=== PATIENT | male | born 1960 | race African-American/Black ===

== ENCOUNTER 2017-10-12 21:20 | Emergency (ER) | payer SELFPAY ==
[2017-10-12] MEDS ORDERED: NA CHLORIDE 0.9% 1,000 ML ONE ×2 (21:53→22:51)
[2017-10-12] MEDS ORDERED: MORPHINE 4 MG/ML SYR ONE ×2 (21:53→22:15)
[2017-10-12] MEDS ORDERED: ONDANSETRON 4 MG/2 ML VIAL ONE (21:53)
[2017-10-12 22:01] LABS: Absolute Lymphocytes (CBC) 2.7 K/uL (0.7-4.9); Absolute Monocytes 1.4 K/uL (0.1-1.3); Absolute Neutrophil 12.2 K/uL (1.8-8.0); Basophils % 0.5 % (0-1.3); Eosinophils % 0.5 % (0-4.4); Lymphocytes % 16.4 % (15.3-44.8); MCH 28.2 pg (27.0-35.0); MCV 84.1 fL (80-100); MPV 8.6 fL (7.6-11.3); Monocytes % 8.3 % (3.3-12.3); RBC Red Blood Cell Count 5.35 M/uL (4.33-5.43)
[2017-10-12 22:10] LABS: Protime INR 1.32
[2017-10-12 22:15] LABS: Potassium 3.6 mEq/L (3.6-5.0)
--- NOTE | 2017-10-12 22:30 | ER ---
Nurse's Notes [facility] Name: Nader Trejo Jr Age: 57 yrs Sex: Male : 1960 Arrival Date: 10/12/2017 Time: 21:25 Bed 20 Private MD: Diagnosis: Multiple fractures of pelvis with unstable disruption of pelvic ring;Animal-rider injured by fall from or being thrown from horse in noncollision accident Presentation: 10/12 21:29 Presenting complaint: Patient states: I was riding a a horse and bucked off the horse, la1 reports + LOC, C/O pain in PAMELA hips, states he cannot bear weight. Transition of care: patient was not received from another setting of care. Onset of symptoms was October 12, 2017. Initial Sepsis Screen: Does the patient meet any 2 criteria? No. Patient's initial sepsis screen is negative. Does the patient have a suspected source of infection? No. Patient's initial sepsis screen is negative. Care prior to arrival: None. 21:29 Method Of Arrival: Wheelchair la1 21:29 Acuity: BING 2 la1 21:35 Mechanism of Injury: ejected from a horse. bb 21:44 Trauma event details: Injury occurred in the [facility], [place]. Injury occurred: October 12, 2017 Injury occurred at: 19:30. Trauma Activation: Alert Physician: ED Physician; Name: Giuliana; Notified At: 21:29; Arrived At: 21:29 Physician: General Surgeon; Name: ; Notified At: 21:29; Arrived At: Physician: Radiology; Name: Bri Hobbs Crystal; Notified At: 21:29; Arrived At: 21:30 Physician: Respiratory; Name: ; Notified At: 21:29; Arrived At: Physician: Lab; Name: ; Notified At: 21:29; Arrived At: Historical: - Allergies: 21:31 No Known Allergies; la1 - PMHx: 21:31 None; la1 - PSHx: 21:31 None; la1 - Immunization history:: Adult Immunizations up to date. - Social history:: Smoking status: Patient uses tobacco products, smokes one pack cigarettes per day. - Immunization history: Last tetanus immunization: unknown. Screenin:35 Abuse screen: Denies threats or abuse. Tuberculosis screening: No symptoms or risk bb factors identified. 22:05 Nutritional screening: No deficits noted. Fall Risk None identified. bb Primary Survey: 21:35 A: Airway: patent. Breathing/Chest: Respiratory pattern: regular, Respiratory effort: bb spontaneous, unlabored, Breath sounds: clear, bilaterally. Chest inspection: symmetrical rise and fall of the chest. Circulation: Heart tones present. Pulses: palpable right radial artery, right dorsalis pedis artery, left radial artery and left dorsalis pedis artery. Skin color: normal, Skin temperature: warm. Disability Alert. 22:00 Reassessment Breathing/Chest Respiratory pattern Regular Respiratory effort Spontaneous bb Unlabored Breath sounds Clear Chest inspection Symmetrical Circulation Heart tones Present Pulses Palpable Color Other normal Temperature Warm Disability Alert. Secondary Survey: 21:35 HEENT: No deficits noted. Gastrointestinal: Abdomen is distended, Bowel sounds bb hypoactive in right upper quadrant, left upper quadrant, right lower quadrant and left lower quadrant Palpation Patient reports tenderness. : No signs and/or symptoms were reported regarding the genitourinary system. Musculoskeletal: Circulation, motion, and sensation intact. Assessment: 21:35 General: Appears uncomfortable, Behavior is cooperative, anxious, Reports pain in lower bb abdomen, groin area, states he thinks he may have passed out. Pain: Complains of pain in abdomen Pain currently is 10 out of 10 on a pain scale. Neuro: Level of Consciousness is awake, alert, obeys commands, Oriented to person, place, time, situation, Speech is normal. Cardiovascular: Heart tones S1 S2 present Capillary refill < 3 seconds Patient's skin is warm and dry. Pulses are all present. Edema is absent. Respiratory: Respiratory effort is even, unlabored, Breath sounds are clear bilaterally. GI: Abdomen is distended, Bowel sounds present X 4 quads. Abd is soft X 4 quads Abdomen is tender to palpation X 4 quads. : No signs and/or symptoms were reported regarding the genitourinary system. Derm: Skin is dry, Skin is normal, Skin temperature is warm. Musculoskeletal: Circulation, motion, and sensation intact. Injury Description: bucked off of a horse. 22:20 Reassessment: pelvic sling applied pt transported to CT via stretcher accompanied by bb this RN. Reassessment:. 22:40 Reassessment: pt tolerated CT procedure well. Pt is A\T\O x 4, resp unlabored, states bb pain is better. 22:58 Reassessment: report called to Rubina Aquino RN for [facility]. bb 23:05 Reassessment: [facility] at bedside for transport to [facility] pt is A\T\O x 4, bb resp unlabored, bilateral IVs intact, patent, with fluids infusing, pelvic sling in place. Family at bedside. Vital Signs: 21:31 BP 124 / 79; Pulse 84; Resp 16; Temp 97.2; Pulse Ox 100% on R/A; Weight 91.63 kg; la1 Height 5 ft. 6 in. (167.64 cm); 22:04 BP 112 / 71; Pulse 88; Resp 18 S; Pulse Ox 96% on 2 lpm NC; bb 22:51 BP 135 / 98; Pulse 97; Resp 20; Pulse Ox 97% on 2 lpm NC; cc 23:05 BP 144 / 91; Pulse 84; Resp 18 S; Pulse Ox 97% on 2 lpm NC; Pain 6/10; bb 21:31 Body Mass Index 32.60 (91.63 kg, 167.64 cm) la1 [place] Coma Score: 21:35 Eye Response: spontaneous(4). Verbal Response: oriented(5). Motor Response: obeys bb commands(6). Total: 15. 22:00 Eye Response: spontaneous(4). Verbal Response: oriented(5). Motor Response: obeys bb commands(6). Total: 15. Trauma Score (Adult): 21:35 Eye Response: spontaneous(1); Verbal Response: oriented(1); Motor Response: obeys bb commands(2); Systolic BP: > 89 mm Hg(4); Respiratory Rate: 10 to 29 per min(4); Lizette Score: 15; Trauma Score: 12 ED Course: 21:25 Patient arrived in ED. es 21:31 Triage completed. la1 21:31 Arm band placed on left wrist. la1 21:35 Patient has correct armband on for positive identification. Bed in low position. Call bb light in reach. Side rails up X2. Adult w/ patient. C-Collar applied by Mookie ZAYAS. 21:35 Patient maintains SpO2 saturation greater than 95% on room air. bb 21:36 Mookie Newell PA is PHCP. cp 21:36 Alexandru Solomon MD is Attending Physician. cp 21:45 Thermoregulation: warm blanket given to patient. bb 21:45 Initial lab(s) drawn, by ct, sent to lab. EKG done, T\T\S collected, blood band applied bb to patient. Inserted saline lock: 18 gauge in left antecubital area, using aseptic technique. Blood collected. 21:57 Belkis Cote, RN is Primary Nurse. bb 22:02 Radiology exam delayed due to lab results not completed at this time. (BUN/Creatinine). cw1 22:04 X-ray completed. Portable x-ray completed in exam room. Patient tolerated procedure la2 well. 22:05 XRAY Chest (1 view) In Process Unspecified. EDMS 22:06 XRAY Pelvis In Process Unspecified. EDMS 22:45 Inserted saline lock: 18 gauge in right antecubital area, using aseptic technique. bb 22:51 CT Traumagram (Head C Spine CAP W Con) In Process Unspecified. EDMS 23:14 No provider procedures requiring assistance completed. Patient transferred, IV remains bb in place. Administered Medications: 21:57 Drug: NS 0.9% 1000 ml Route: IV; Rate: 1 bolus; Site: left antecubital; bb 23:19 Follow up: IV Status: Completed infusion; IV Intake: 1000ml bb 21:57 Drug: morphine 4 mg Route: IVP; Site: left antecubital; bb 23:19 Follow up: Response: No adverse reaction; Pain is decreased bb 21:58 Drug: Zofran 4 mg Route: IVP; Site: left antecubital; bb 23:19 Follow up: Response: No adverse reaction bb 22:23 Drug: morphine 4 mg Route: IVP; Site: left antecubital; bb 23:19 Follow up: Response: No adverse reaction; Pain is decreased bb Intake: 21:35 PO: 0ml; Total: 0ml. bb 23:19 IV: 1000ml; Total: 1000ml. bb Outcome: 22:29 ER care complete, transfer ordered by . cp 23:14 Transferred by helicopter to [facility], Transfer form completed. X-rays sent bb w/ patient. 23:14 Condition: unchanged 23:14 Patient's length of stay was not longer than 2 hours. 23:20 Patient left the ED. bb Signatures: Dispatcher [employer] Charla Harvey Felicia RN RN Belkis Mtz RN RN Miguelina Barnett cw1 Leigh Rios Lee, RN RN la1 Mookie Newell PA PA cp Ardoin, Leslie la2
--- NOTE | 2017-10-12 22:30 | EDPHYS ---
Physician Documentation [facility] Name: Nader Trejo Jr Age: 57 yrs Sex: Male : 1960 Arrival Date: 10/12/2017 Time: 21:25 Bed 20 Private MD: ED Physician Alexandru Solomon HPI: 10/12 21:44 This 57 yrs old Black Male presents to ER via Wheelchair with complaints of Fall Injury.cp 21:44 Details of fall: The patient fell from a height, thrown from horse. Onset: The cp symptoms/episode began/occurred today, at 19:00. Associated injuries: The patient sustained injury to the abdomen, specifically the right lower quadrant and left lower quadrant, pain, pelvis, painful injury. Historical: - Allergies: 21:31 No Known Allergies; la1 - PMHx: :31 None; la1 - PSHx: 21:31 None; la1 - Immunization history:: Adult Immunizations up to date. - Social history:: Smoking status: Patient uses tobacco products, smokes one pack cigarettes per day. - Immunization history: Last tetanus immunization: unknown. ROS: 22:00 Constitutional: Negative for body aches, chills, fever, poor PO intake. cp 22:00 Eyes: Negative for injury, pain, redness, and discharge. cp 22:00 ENT: Negative for drainage from ear(s), ear pain, sore throat, difficulty swallowing, difficulty handling secretions. 22:00 Neck: Negative for pain with movement, pain at rest, stiffness, tenderness, bony tenderness. 22:00 Cardiovascular: Negative for chest pain, edema, palpitations. 22:00 Respiratory: Negative for cough, shortness of breath, wheezing. 22:00 Abdomen/GI: Positive for abdominal pain, of the suprapubic area, Negative for nausea, vomiting, and diarrhea. 22:00 Back: Negative for pain at rest, pain with movement. 22:00 : Positive for pelvic pain, Negative for penile pain, testicular pain 22:00 Skin: Negative for cellulitis, rash. 22:00 Neuro: Positive for loss of consciousness, Negative for altered mental status, weakness. 22:00 All other systems are negative. Exam: 22:05 Constitutional: The patient appears in no acute distress, alert, awake, cp non-diaphoretic, non-toxic, well developed, well nourished. 22:05 Head/Face: Normocephalic, atraumatic. cp 22:05 Eyes: Periorbital structures: appear normal, Pupils: equal, round, and reactive to light and accomodation, Extraocular movements: intact throughout, Conjunctiva: normal, no exudate, no injection, Lids and lashes: appear normal, bilaterally. 22:05 ENT: External ear(s): are unremarkable, Ear canal(s): are normal, clear, TM's: dullness, bilaterally, Nose: is normal, Mouth: is normal, Posterior pharynx: is normal, airway is patent, no erythema, no exudate. 22:05 Neck: C-spine: C-collar placed in ED, vertebral tenderness, is not appreciated, crepitus, is not appreciated. 22:05 Chest/axilla: Inspection: normal, Palpation: is normal, no crepitus, no tenderness. 22:05 Cardiovascular: Rate: normal, Rhythm: regular. 22:05 Respiratory: the patient does not display signs of respiratory distress, Respirations: normal, no use of accessory muscles, no retractions, no splinting, no tachypnea, Breath sounds: are clear throughout, no decreased breath sounds, no stridor, no wheezing. 22:05 Abdomen/GI: Inspection: abdomen appears normal, Bowel sounds: active, all quadrants, Palpation: moderate abdominal tenderness, in the right lower quadrant and left lower quadrant, rebound tenderness, is not appreciated, voluntary guarding, is elicited in the right lower quadrant and left lower quadrant. 22:05 Back: ROM is normal. 22:05 Skin: cellulitis, is not appreciated, no rash present. 22:05 Neuro: Orientation: to person, place \T\ time. Mentation: lucid, able to follow commands, Cerebellar function: is grossly normal, Motor: moves all fours, strength is normal, Sensation: no obvious gross deficits. Vital Signs: 21:31 BP 124 / 79; Pulse 84; Resp 16; Temp 97.2; Pulse Ox 100% on R/A; Weight 91.63 kg; la1 Height 5 ft. 6 in. (167.64 cm); 22:04 BP 112 / 71; Pulse 88; Resp 18 S; Pulse Ox 96% on 2 lpm NC; bb 22:51 BP 135 / 98; Pulse 97; Resp 20; Pulse Ox 97% on 2 lpm NC; cc 23:05 BP 144 / 91; Pulse 84; Resp 18 S; Pulse Ox 97% on 2 lpm NC; Pain 6/10; bb 21:31 Body Mass Index 32.60 (91.63 kg, 167.64 cm) la1 [place] Coma Score: 21:35 Eye Response: spontaneous(4). Verbal Response: oriented(5). Motor Response: obeys bb commands(6). Total: 15. 22:00 Eye Response: spontaneous(4). Verbal Response: oriented(5). Motor Response: obeys bb commands(6). Total: 15. Trauma Score (Adult): 21:35 Eye Response: spontaneous(1); Verbal Response: oriented(1); Motor Response: obeys bb commands(2); Systolic BP: > 89 mm Hg(4); Respiratory Rate: 10 to 29 per min(4); Lizette Score: 15; Trauma Score: 12 MDM: 21:41 Patient medically screened. cp 22:15 Data reviewed: vital signs, nurses notes, lab test result(s), radiologic studies, plain cp films. 22:15 Test interpretation: by ED physician or midlevel provider: plain radiologic studies. cp Counseling: I had a detailed discussion with the patient and/or guardian regarding: the historical points, exam findings, and any diagnostic results supporting the discharge/admit diagnosis, lab results, radiology results, the need to transfer to another facility, for higher level of care. Response to treatment: the patient's symptoms have mildly improved after treatment. 10/12 20:44 Order name: Basic Metabolic Panel; Complete Time: 23:09 cp 10/12 23:09 Interpretation: Normal except: GLUC 148; GFR 86. cp 10/12 20:44 Order name: CBC with Diff; Complete Time: 22:13 cp 10/12 23:09 Interpretation: Normal except: WBC 16.5; BETHANIE% 74.3; NEUT A 12.2. cp 10/12 20:44 Order name: Creatinine for Radiology; Complete Time: 22:13 cp 10/12 20:44 Order name: Type And Screen; Complete Time: 23:09 cp 10/12 20:44 Order name: PT-INR; Complete Time: 22:13 cp 10/12 20:44 Order name: Ptt, Activated; Complete Time: 22:13 cp 10/12 21:44 Order name: XRAY Chest (1 view) cp 10/12 21:44 Order name: XRAY Pelvis cp 10/12 21:44 Order name: CT Traumagram (Head C Spine CAP W Con) 10/12 21:44 Order name: Labs collected and sent; Complete Time: 21:58 cp 10/12 21:44 Order name: IV; Complete Time: 21:57 cp 10/12 21:44 Order name: EKG - Nurse/Tech cp Administered Medications: 21:57 Drug: NS 0.9% 1000 ml Route: IV; Rate: 1 bolus; Site: left antecubital; bb 23:19 Follow up: IV Status: Completed infusion; IV Intake: 1000ml bb 21:57 Drug: morphine 4 mg Route: IVP; Site: left antecubital; bb 23:19 Follow up: Response: No adverse reaction; Pain is decreased bb 21:58 Drug: Zofran 4 mg Route: IVP; Site: left antecubital; bb 23:19 Follow up: Response: No adverse reaction bb 22:23 Drug: morphine 4 mg Route: IVP; Site: left antecubital; bb 23:19 Follow up: Response: No adverse reaction; Pain is decreased bb Disposition: 10/13 06:22 Co-signature as Attending Physician, Alexandru Solomon MD. [facility] Disposition: 10/12/17 22:29 Transfer ordered to [facility]. Diagnosis are Multiple fractures of pelvis with unstable disruption of pelvic ring, Animal-rider injured by fall from or being thrown from horse in noncollision accident. - Reason for transfer: Higher level of care. - Accepting physician is Kathryn Lemus. - Condition is Serious. - Problem is new. - Symptoms have improved. Signatures: Dispatcher [employer] EDMS Alexandru Solomon MD MD pkl Belkis Cote RN RN bb Attema, Lee, RN RN la1 Mookie Newell PA PA cp Corrections: (The following items were deleted from the chart) 10/12 23:20 22:29 10/12/2017 22:29 Transfer ordered to [facility]. bb Diagnosis is Multiple fractures of pelvis with unstable disruption of pelvic ring; Animal-rider injured by fall from or being thrown from horse in noncollision accident. Reason for transfer: Higher level of care. Accepting physician is Kathryn Lemus. Condition is Serious. Problem is new. Symptoms have improved. cp
--- NOTE | 2017-10-13 08:38 | RAD REPORT ---
EXAM DESCRIPTION: Monica Single View10/12/2017 10:10 pm CLINICAL HISTORY: Chest pain COMPARISON: none FINDINGS: The lungs appear clear of acute infiltrate. The heart is normal size IMPRESSION: No acute abnormalities displayed
--- NOTE | 2017-10-13 09:14 | RAD REPORT ---
EXAM DESCRIPTION: RAD - Pelvis - 10/12/2017 10:10 pm CLINICAL HISTORY: Pelvic pain status post injury FINDINGS: Traumatic diastases of the pubic symphysis measures about 32 millimeters. Mild widening of the left sacroiliac joint likely indicates injury to the ligament. No fracture is seen
--- NOTE | 2017-10-13 17:44 | RAD REPORT ---
EXAM DESCRIPTION: CT - Head C Spine Cap W Drake - 10/13/2017 8:07 am CLINICAL HISTORY: Head and neck injury with chest and abdominal pain status post fall from a horse. Head and neck pain . TECHNIQUE: Computed axial tomography of the head and cervical spine was obtained Computed axial tomography of the chest, abdomen and pelvis was obtained. 100 cc Isovue-300 was given intravenously coronal and sagittal reconstruction was performed. All CT scans are performed using dose optimization technique as appropriate and may include automated exposure control or mA/KV adjustment according to patient size. COMPARISON: None. FINDINGS: An intracranial bleed is not seen. The ventricles are normal in caliber. An extra-axial fl uid collection is not noted. A cervical fracture is not seen. No dislocation is seen. A mediastinal hematoma is not noted. A pleural effusion is not present. A lung contusion is not seen. The liver, spleen, pancreas, adrenals, and kidneys appear unremarkable. A diastases of the pubic symphysis 2 centimeters is present with adjacent small hematoma. Mild wideni ng of the left sacroiliac joint is present. Small amount of ill-defined fluid surrounds the bladder. An umbilical hernia is present. IMPRESSION: 1. No acute intracranial abnormality is seen 2. A cervical fracture is not visualized. If the patient continues have symptoms to suggest intracran ial/spinal cord pathology then MRI would be recommended. 3. No traumatic injury involving the chest, or abdomen is seen. 4, Traumatic 2 centimeter diastases of the pubic symphysis. Mild widening of the left sacroiliac join t likely indicates ligamentous injury. 5. Ill-defined fluid surrounds the bladder which may simply be the hematoma related to the pubic symp hysis injury. A bladder injury could also have this appearance. Further evaluation with a cystogram w ould be helpful
== END 2017-10-12 23:20 | disposition short-term general hospital (02) ==
LOC: ER 21:20
DX: S32.811A Multiple fractures of pelvis with unstable disruption of pelvic ring, initial encounter for closed fracture (principal); V80.010A Animal-rider injured by fall from or being thrown from horse in noncollision accident, initial encounter; Y93.89 Activity, other specified; Y92.9 Unspecified place or not applicable; F17.210 Nicotine dependence, cigarettes, uncomplicated
CPT/HCPCS: 36415; 70450; 71045; 71260; 72125; 72170; 74177; 80048; 85025; 85610; 85730; 86850; 86900; 86901; 96361; 96374; 96375; 99285; J2405; J7030; Q9967

== ENCOUNTER 2018-05-12 03:24 | Emergency (ER) | payer OTHER, SELFPAY ==
--- OUTSIDE RECORDS SUMMARY | 2018-05-12 03:28 | XMS REPORT | Continuity of Care Document ---
:1960 Author Organization Interface Problems Problem Status Onset Classification Date Comments Source Date Reported LFLT TRANSFER Active [id number] FX DISLOC OF Active [facility] PUBIC Medical SYMPHYSIS Center FALL FROM Active [facility] HORSE [address] [place] [address] Center OTH FRACTURE Active [facility] Medical PUBIS, INIT Center ENCNTR Medications Medication Details Route Status Patient Ordering Order Source Instructions Provider Date sennosides, SKILLED NURSING 17.2 mg=2 tab, Active 10/15[facility] 8.6 MG Oral PO, Bedtime, 0 2018 Medical Tablet Refill(s) Center enoxaparin 30 30 mg=0.3 mL, Active 10/15[facility] mg/0.3 mL SUB-Q, Q12H, X 2018 Medical subcutaneous 21 day, # 42 Center solution inj, 0 Refill(s), Pharmacy: [facility] [id number] methocarbamol 500 mg=1 tab, Active 10/15[facility] 500 mg oral PO, Q8H, X 5 2018 Medical tablet day, # 15 tab, 0 Center Refill(s), Pharmacy: [facility] [id number] cetirizine 5 mg 5 mg=1 tab, PO, Active 10/15[facility] oral tablet Daily, 0 2018 Medical Refill(s) Center 24 HR Nicotine =1 patch, TOP, Active 10/15[facility] 0.875 MG/HR Daily, X 7 day, 2018 Medical Transdermal # 7 patch, 0 Center Patch [Nicoderm Refill(s), C-Q] Pharmacy: [facility] [id number] Acetaminophen 1 tab, PO, Q4H, Active 10/15[facility] 325 MG / PRN Pain Score 2018 Medical Hydrocodone 6-10, X 7 day, # Center Bitartrate 5 MG 15 tab, 0 Oral Tablet Refill(s), given [[place] 5/325] to patient naproxen 250 mg 250 mg=1 tab, Active [place] oral tablet PO, Q8H, PRN 2018 Medical Pain Score 4-6, Center X 5 day, # 20 tab, 0 Refill(s), Pharmacy: [facility] [id number] Zyrtec 5 mg, 1 tab, No Longer [place] Route: PO, Drug Active 2017 Medical form: TAB, Center Daily, Dosing Weight 91.818, kg, Start date: 10/14/17 12:18:00 CDT, Duration: 30 day, Stop date: 11/13/17 9:00:00 CDTNotes: (Same As: Zyrtec) Aleve 250 mg, 1 tab, No Longer [place] Route: PO, Drug Active 2017 Medical form: TAB, Q8H, Center Dosing Weight 91.818, kg, PRN Pain Score 4-6, Start date: 10/14/17 12:06:00 CDT, Duration: 30 day, Stop date: 11/13/17 12:05:00 CDTNotes: (Same as: Naprosyn) Take with food. Tylenol 650 mg, 20.3 mL, No Longer [place] Route: PO, Drug Active 2017 Medical form: LIQ, TID, Center Dosing Weight 91.818, kg, Start date: 10/14/17 9:00:00 CDT, Duration: 30 day, Stop date: 11/12/17 17:00:00 CDTNotes: Max acetaminophen=40 00mg/day (4 gm/day). (Same as: Tylenol) remove patch 1 patch, Route: No Longer [place] TOP, Drug form: Active 2018 Medical ERFILM, Daily, Center Start date: 10/14/17 9:00:00 CDT, Duration: 30 day, Stop date: 11/12/17 9:00:00 CDTNotes: Remove old patch before application of new patch. WASTE: F/P - P Waste Black; E - P Waste Black pneumococcal 0.5 mL, Route: No Longer [place] capsular IM, Drug Form: Active 2018 Medical polysaccharide INJ, ONCALL, Center type 1 vaccine / Start date: pneumococcal 10/14/17 6:46:53 capsular CDT, Stop date: polysaccharide 11/13/17 6:41:53 type 10A vaccine CDTNotes: (Same / pneumococcal as: Pneumovax capsular 23) Refrigerate polysaccharide type 11A vaccine / pneumococcal capsular polysaccharide type 12F vaccine / pneumococcal capsular polysacchar Cefazolin 2 gm, 20 mL, No Longer [place] Route: IVPB, Active 2018 Medical Drug form: SOLN, [place] ABXQ8H, Dosing Weight 91.818, kg, Start date: 10/13/17 22:00:00 CDT, Duration: 3 doses or times, Stop date: 10/14/17 14:00:00 CDT, ABX Indication: Surgical ProphylaxisNotes : (Same as Ancef) sennosides, SKILLED NURSING 17.2 mg, 2 tab, No Longer [place] Route: PO, Drug Active 2017 Medical Form: TAB, Center Dosing Weight 91.818, kg, Bedtime, Start date: 10/13/17 21:00:00 CDT, Duration: 30 day, Stop date: 11/11/17 21:00:00 CDTNotes: (Same as: Senokot) Labetalol 10 mg, 2 mL, No Longer [facility] Route: IVP, Drug Active 2017 Medical form: INJ, Center Q15Min, Dosing Weight 91.818, kg, PRN Hypertension, Start date: 10/13/17 16:15:00 CDT, Duration: 3 doses or times, Stop date: 11/13/17 0:00:00 CDT sugammadex 200 mg, 2 mL, No Longer [facility] Route: IV, Drug Active 2017 [facility] Start date: 10/13/17 16:04:00 CDT, Duration: 1 doses or times, Stop date: 10/13/17 16:04:00 CDTNotes: (Same as: [place]) niCARdipine Route: IV, Drug Inactive [facility] (ANES) form: INJ, ONCE, 2017 Medical Stop date: [place] 10/13/17 14:57:00 CDT acetaminophen Route: IV, Drug Inactive [facility] (ANES) form: INJ, ONCE, 2017 Medical Stop date: [place] 10/13/17 14:57:00 CDT metoprolol Route: IV, Drug Inactive [place] (ANES) form: INJ, ONCE, 2017 Medical Stop date: [place] 10/13/17 14:47:00 CDT dexamethasone Route: IV, Drug Inactive [place] (ANES) form: INJ, ONCE, 2017 Medical Stop date: [place] 10/13/17 14:37:00 CDT fentaNYL (ANES) Route: IV, Drug Inactive [place] form: INJ, ONCE, 2017 Medical Stop date: [place] 10/13/17 14:37:00 CDT propofol (ANES) Route: IV, Drug Inactive [place] form: INJ, ONCE, 2017 Medical Stop date: [place] 10/13/17 14:37:00 CDT rocuronium Route: IV, Drug Inactive [place] (ANES) form: INJ, ONCE, 2017 Medical Stop date: [place] 10/13/17 14:37:00 CDT lidocaine (ANES) Route: IV, Drug Inactive [place] form: INJ, ONCE, 2017 Medical Stop date: [place] 10/13/17 14:37:00 CDT ceFAZolin (ANES) Route: IV, Drug Inactive [place] form: INJ, ONCE, 2017 Medical Stop date: [place] 10/13/17 14:12:00 CDT Sodium Chloride Route: IV, Total Inactive [place] 0.9% IV (ANES) Volume: 1,000, 2017 Medical 1000 mL Start date: [place] 10/13/17 14:00:00 CDT, Stop date: 10/13/17 15:00:00 CDT Isolyte S PH 7.4 Route: IV, Total Inactive [place] (ANES) 1000 mL Volume: 1,000, 2017 Medical Start date: [place] 10/13/17 13:10:00 CDT, Stop date: 10/13/17 14:10:00 CDT Enoxaparin 30 mg, 0.3 mL, No Longer [place] Route: SUB-Q, Active 2017 Medical Drug form: INJ, Center Q12H, Dosing Weight 91.818, kg, Start date: 10/13/17 9:00:00 CDT, Stop date: 11/11/17 9:00:00 CDTNotes: (Same as: Lovenox) Nicotine 21 mg, 1 patch, No Longer [place] Route: TOP, Drug Active 2017 Medical form: ERFILM, Center Daily, Dosing Weight 91.818, kg, Start date: 10/13/17 9:00:00 CDT, Duration: 30 day, Stop date: 11/11/17 9:00:00 CDTNotes: (Same as: Habitrol) "Remove old patch before application of new patch" WASTE: F/P - P Waste Black; E - P Waste Black Robaxin 500 mg, 1 tab, No Longer [place] Route: PO, Drug Active 2017 Medical form: TAB, Q8H, Center Dosing Weight 91.818, kg, Start date: 10/13/17 8:00:00 CDT, Stop date: 11/12/17 0:00:00 CDTNotes: (Same as:Robaxin) Tramadol 50 mg, 1 tab, No Longer [place] Route: PO, Drug Active 2017 Medical form: TAB, Q6H, Center Dosing Weight 91.818, kg, > 50 kg, Start date: 10/13/17 6:00:00 CDT, Stop date: 11/12/17 0:00:00 CDTNotes: Not to exceed 400mg/day. (Same As: Ultram) Morphine 4 mg, Route: Inactive [place] IVP, ONCE, 2017 Medical Dosing Weight Center 91.818, kg, Start date: 10/13/17 5:30:00 CDT, Stop date: 10/13/17 5:30:00 CDT Acetaminophen 1 tab, Route: No Longer [place] 325 MG / PO, Drug Form: Active 2018 Medical Hydrocodone TAB, Dosing Center Bitartrate 5 MG Weight 91.818, Oral Tablet kg, Q4H, PRN [[place] 5/325] Pain Score 6-10, Start date: 10/13/17 4:32:00 CDT, Duration: 30 day, Stop date: 11/12/17 4:31:00 CDTNotes: (Same as: [place] 325/5) Do not exceed 4gm/day of acetaminophen. ketOROLAC 30 mg, 1 mL, No Longer [place] Route: IV, Drug Active 2017 Medical form: INJ, Q6H, Center Dosing Weight 91.818, kg, PRN Pain Score 7-10, Start date: 10/13/17 4:32:00 CDT, Duration: 4 day, Stop date: 10/17/17 4:31:00 CDTNotes: (Same as:Toradol) IV bolus must be given >15 seconds. Give IM administration slowly and deeply into the muscle. Not for use > 4 days MEDICATION WASTE Product Size: 30 mg Product Wasted: _0__ mg Acetaminophen 500 mg, 1 tab, No Longer [place] Route: PO, Drug Active 2017 Medical form: TAB, Q4H, Center Dosing Weight 91.818, kg, PRN Pain 1-3/Temp > 100.4 F, Start date: 10/13/17 4:29:00 CDT, Duration: 30 day, Stop date: 11/12/17 4:28:00 CDTNotes: Max acetaminophen 4000 mg/day (4 gm/day). (Same as: Tylenol Extra Strength) Ondansetron 4 mg, 2 mL, No Longer [place] Route: IVP, Drug Active 2017 Medical form: INJ, Q6H, Center Dosing Weight 91.818, kg, PRN Nausea & Vomiting, Start date: 10/13/17 4:29:00 CDT, Duration: 30 day, Stop date: 11/12/17 4:28:00 CDTNotes: (Same as: Zofran) MEDICATION WASTE Product Size: 4 mg Product Wasted: 0__ mg Saline Flush 10 mL, Route: No Longer [place] 0.9% IVP, Drug Form: Active 2017 Medical INJ, Dosing Center Weight 91.818, kg, PRN, PRN Line Flush, Start date: 10/12/17 23:56:00 CDT, Duration: 30 day, Stop date: 11/11/17 23:55:00 CDTNotes: Same as: BD Posiflush Sterile Calcium Chloride 1,000 mL, 2,000 Inactive [place] 0.0014 MEQ/ML / ml/hr, Route: 2018 Medical Potassium IV, ONCE, Center Chloride 0.004 Priority: STAT, MEQ/ML / Sodium Dosing Weight Chloride 0.103 91.818 kg, Start MEQ/ML / Sodium date: 10/12/17 Lactate 0.028 23:56:00 CDT, MEQ/ML Stop date: Injectable 10/12/17 Solution 23:56:00 CDT Isolyte S PH 7.4 1,000 mL, Rate: No Longer [facility] 1,000 mL 125 ml/hr, Active 2017 Medical Infuse over: 8 Center hr, Route: IV, Dosing Weight 91.818 kg, Total Volume: 1,000, Priority: STAT, Start date: 10/12/17 23:56:00 CDT, Duration: 1 doses or times, Stop date: 10/13/17 7:55:00 CDTNotes: (Same as: Isolyte S PH 7.4) Allergies, Adverse Reactions, Alerts Substance Category Reaction Severity Reaction Status Date Comments Source type Reported Immunizations Immunization Date Given Site Status Last Updated Comments Source Results Order Name Results Value Reference Date Interpretation Comments Source Range HEMATOLOGY Eosinophils # 0.2 K/CMM 0.0 - 0.5 10/[address] HEMATOLOGY Eosinophils 1.3 % 0.0 - 4.0 10/[address] HEMATOLOGY Lymphocytes 24.7 % 20.0 - 10/15 [facility] 40.0 [facility] HEMATOLOGY Monocytes 10.0 % 2.0 - 12.0 10/[address] HEMATOLOGY Lymphocytes # 3.6 K/CMM 1.0 - 5.5 10/[address] HEMATOLOGY Monocytes # 1.5 K/CMM 0.0 - 0.8 10/[address] HEMATOLOGY Segs 63.3 % 45.0 - 10/15 [facility] 75.0 [facility] HEMATOLOGY Basophils 0.7 % 0.0 - 1.0 10/[address] HEMATOLOGY Segs-Bands # 9.2 K/CMM 1.5 - 8.1 10/[address] HEMATOLOGY Basophils # 0.1 K/CMM 0.0 - 0.2 10/[address] HEMATOLOGY Hgb 13.0 g/dL 14.0 - 10/15 [facility] 18.0 [facility] HEMATOLOGY MCV 85.8 fL 80.0 - 10/15 [place] 94.0 [facility] HEMATOLOGY MCH 28.6 pg 27.0 - 10/15 31.0 [facility] HEMATOLOGY Hct 38.9 % 42.0 - 10/15 54.0 [facility] HEMATOLOGY MCHC 33.3 g/dL 32.0 - 10/15 36.0 [facility] HEMATOLOGY RDW 13.6 % 11.5 - 10/15 [place] 14.5 [facility] HEMATOLOGY Platelet 188 K/CMM 133 - 450 10/15 [facility] HEMATOLOGY MPV 8.9 fL 7.4 - 10.4 10/15 [facility]2017 [facility] HEMATOLOGY RBC 4.53 M/CMM 4.70 - 10/15 [facility] 6.10 [facility] HEMATOLOGY WBC 14.6 K/CMM 3.7 - 10.4 10/[address] SPECIAL Hgb A1C 6.1 % <=5.6 % 10/15 [facility] CHEMISTRY [facility] URINE AND UA Mucus Few /LPF None Seen 10/14 [facility] STOOL /LPF /[address] [place] [address] URINE AND UA Bacteria Occasional None Seen 10/14 [facility] STOOL /HPF /HPF /2017 [facility] URINE AND UA WBC 6 /HPF 0 - 5 10/14 [facility] [address] [place] [address] URINE AND UA Sq Epi Occasional Few /LPF 10/14 [facility] STOOL /LPF [address] [place] [address] URINE AND UA RBC 3 /HPF 0 - 2 10/14 [facility] [address] [place] [address] URINE AND UA Bili Negative Negative 10/14 [facility] *NA* Center (10/14/17 1:29 PM) URINE AND UA Ketones Negative Negative 10/14 [facility] STOOL mg/dL mg/dL /2017 [facility] URINE AND UA Protein 10 mg/dL Negative 10/14 [facility] STOOL mg/dL [facility] URINE AND UA Glucose Negative Negative 10/14 [facility] mg/dL mg/dL [facility] URINE AND UA Color Yellow Yellow 10/14 [facility] [address] [place] [address] *NA* Center (10/14/17 1:29 PM) URINE AND UA Leuk Est Negative Negative 10/14 [facility] (10/14/17 1:29 PM) [place] URINE AND UA Blood Negative Negative 10/14 [facility] (10/14/17 1:29 PM) [place] URINE AND UA Nitrite Negative Negative 10/14 [facility] (10/14/17 1:29 PM) [place] URINE AND UA 4.0 mg/dL 0.1 - 1.0 10/14 [facility] Urobilinogen [facility] URINE AND UA Turbidity Clear Clear 10/14 [facility]2017 [facility] (10/14/17 1:29 PM) [place] URINE AND UA pH 6.5 5.0 - 8.0 10/[address] URINE AND UA Spec Grav 1.023 <=1.030 10/[address] CHEM PANEL B/C Ratio 13 6 - 25 10/[address] CHEM PANEL Globulin 4.1 g/dL 2.7 - 4.2 10/[address] CHEM PANEL AGAP 13.2 meq/L 10.0 - 10/14 [facility] 20.0 [facility] CHEM PANEL A/G Ratio 0.8 0.7 - 1.6 10/[address] CHEM PANEL eGFR 96 10/14 Result Comment: The eGFR is calculated using the CKD-EPI formula. In most young, healthy individuals the eGFR will be >90 mL/ min/1.73m2. The eGFR declines with age. An eGFR of 60-89 may be normal in [facility] mL/min/1.7 some populations, particularly the elderly, for whom the CKD-EPI formula has not been extensively validated. Use of the eGFR is not recommended in the following populations: [address] Individuals with unstable creatinine concentrations, including patients and those with serious co-morbid conditions. Patients with extremes in muscle mass or diet. The data above are obtained from the National Kidney Disease Education Program (NKDEP) which additionally recommends that when the eGFR is used in patients with extremes of body mass index for purposes of drug dosing, the eGFR should be multiplied by the estimated BMI. CHEM PANEL Bili Total 0.6 mg/dL 0.2 - 1.3 10/[address] CHEM PANEL Alk Phos 78 unit/L 39 - 136 10/[address] CHEM PANEL Calcium Lvl 8.4 mg/dL 8.5 - 10.5 10/[address] CHEM PANEL Albumin Lvl 3.1 g/dL 3.5 - 5.0 10/14 2017 [facility] CHEM PANEL Total Protein 7.2 g/dL 6.4 - 8.4 10/14 [facility]2017 [facility] CHEM PANEL AST 38 unit/L 0 - 37 10/[address] CHEM PANEL ALT 37 unit/L 0 - 65 10/14 2017 [facility] CHEM PANEL Glucose Lvl 148 mg/dL 70 - 99 10/14 2017 [facility] CHEM PANEL CO2 25 meq/L 24 - 32 10/[address] CHEM PANEL Sodium Lvl 141 meq/L 135 - 145 10/14 2017 [facility] CHEM PANEL Creatinine 0.99 mg/dL 0.50 - 10/14 [facility] Lvl 1.40 [facility] CHEM PANEL BUN 13 mg/dL 7 - 22 10/[address] CHEM PANEL Potassium Lvl 4.2 meq/L 3.5 - 5.1 10/14 [facility] CHEM PANEL Chloride Lvl 107 meq/L 95 - 109 10/[address] [place] [address] HEMATOLOGY Platelet 204 K/CMM 133 - 450 10/[address] [place] [address] HEMATOLOGY RDW 13.9 % 11.5 - 10/14 14.5 [facility] HEMATOLOGY WBC 16.0 K/CMM 3.7 - 10.4 10/14 [facility]2017 [facility] HEMATOLOGY Hct 41.0 % 42.0 - 10/14 54.0 [facility] HEMATOLOGY Hgb 13.7 g/dL 14.0 - 10/14 18.0 [facility] HEMATOLOGY RBC 4.78 M/CMM 4.70 - 10/14 6.10 [facility] HEMATOLOGY MCHC 33.5 g/dL 32.0 - 10/14 36.0 [facility] HEMATOLOGY MCH 28.7 pg 27.0 - 10/14 31.0 [facility] HEMATOLOGY MCV 85.7 fL 80.0 - 10/14 94.0 [facility] HEMATOLOGY MPV 8.8 fL 7.4 - 10.4 10/[address] HEMATOLOGY Lymphocytes # 2.1 K/CMM 1.0 - 5.5 10/14 [facility] HEMATOLOGY Monocytes # 1.9 K/CMM 0.0 - 0.8 10/14 [facility] HEMATOLOGY Segs 75.2 % 45.0 - 10/14 [facility] 75.0 [facility] HEMATOLOGY Segs-Bands # 12.0 K/CMM 1.5 - 8.1 10/14 [facility] HEMATOLOGY Basophils 0.2 % 0.0 - 1.0 10/14 [facility] HEMATOLOGY Monocytes 11.8 % 2.0 - 12.0 10/14 [facility] HEMATOLOGY Lymphocytes 12.8 % 20.0 - 10/14 [facility] 40.0 [facility] Pelvis wo Pelvis wo IV EXAM: CT PELVIS WITHOUT CONTRAST 10/13 - [facility] IV contrast/w - [facility] contrast/w CT This report was dictated by a Dry Finisher/ Fellow. I have personally reviewed the images as Center 3D CT well as the Resident's interpretation and agree with the findings. DATE: 10/13/2017 at 1906 hours. Read by: Angelica Fulton ( Fellow Resident: Angelica Fulton (Fellow Dictated Date/time: 10/14/17 08:08 Electronically Signed by: Spike Tong MD 10/14/17 21:08 FINAL REPORT INDICATION: Eval post reduction ORIF symphysis and fixation of left SI joint. COMPARISON: CT chest abdomen and pelvis with contrast on 10/12/2017. TECHNIQUE: Volumetric CT acquisition of the pelvis without contrast. Axial , sagittal and coronal reconstructions. 3D reconstructions are created at the acquisition workstation. IV contrast: None. DLP: 478 mGy-cm. FINDINGS: Bones: Postsurgical changes are present following fixation of a previously diastatic pubic symphysis and left sacroiliac joint. Fixation is achieved with a reconstruction plate and screws across the pub ic symphysis. There is also a single transsacral, transiliac screw that abuts the anterior cortex of the S2 vertebral body. There is no hardware impingement upon the spinal canal or neural foramina. Hip joint alignment remains preserved bilaterally. A large marginal osteophyte is seen at L5-S1. Intrapelvic soft tissues: A small fat-containing, direct inguinal hernia is present within the anterior pelvic wall soft tissues at midline. Its neck measures 1.5 cm craniocaudal x 1.5 cm transverse. Th ere are also small, fat-containing indirect inguinal hernias bilaterally. A moderate, fat-containing umbilical hernia measures 1.9 cm craniocaudal by 3.2 cm transverse. Surrounding soft tissues: Soft tissue edema/hemorrhage about the anterior pelvic wall soft tissues has improved since the prior study. Amount of subcutaneous emphysema is likely postsurgical in nature. There is a surgical drain that courses posterior to the pubic symphysis, curves leftward, and eventually terminates within the deep anterior pelvic wall soft tissues. IMPRESSION: 1. Improved and now satisfactory alignment following plate and screw fixation of the pubic symphysis and left sacroiliac joint. 2. Small fat-containing, direct hernia at midline. Small, fat-containing indirect inguinal hernias bilaterally. CARDIAC Troponin-I null 0.00 - 10/13 [facility] ENZYMES 0.40 [facility] HEMATOLOGY Hgb 14.3 g/dL 14.0 - 10/13 [facility] 18.0 [facility] HEMATOLOGY Hct 42.4 % 42.0 - 10/13 [facility] 54.0 [facility] HEMATOLOGY K-time Rapid 2.1 min 0.6 - 2.3 10/13 [facility]2017 [facility] HEMATOLOGY R-time Rapid 0.6 min 0.4 - 0.7 10/13 [facility]2017 [facility] HEMATOLOGY [place] 0.5 min 10/13 [facility]2017 [facility] HEMATOLOGY ACT (TEG) 105 s 86 - 118 10/13 [facility]2017 [facility] HEMATOLOGY Estimated % 1.3 % 0.0 - 7.5 10/13 [facility] Lysis [facility] HEMATOLOGY G-value Rapid 6.6 K d/sc 5.0 - 11.6 10/13 [facility]2017 [facility] HEMATOLOGY Max Amplitude 57 mm 52 - 71 10/13 [facility] Rapid /2017 [facility] HEMATOLOGY Angle Rapid 68 degrees 64 - 80 10/13 [facility] BLOOD BANK Antibody Scrn Negative 10/13 [facility] RESULTS [facility] (10/12/17 11:58 PM) [place] BLOOD BANK ABO/Rh B POS 10/13 [facility] RESULTS [facility] CHEM PANEL Lactic Acid 1.6 mMol/L 0.5 - 2.2 10/13 [facility] Lvl /2017 [facility] ELECTROLYTE AGAP 11.0 meq/L 10.0 - 10/13 [facility] 20.0 [facility] ELECTROLYTE Glucose Lvl 122 mg/dL 70 - 99 10/[address] ELECTROLYTE eGFR 91 10/13 Result Comment: The eGFR is calculated using the CKD-EPI formula. In most young, healthy individuals the eGFR will be >90 mL/ min/1.73m2. The eGFR declines with age. An eGFR of 60-89 may be normal in [facility] mL/min/1.7 some populations, particularly the elderly, for whom the CKD-EPI formula has not been extensively validated. Use of the eGFR is not recommended in the following populations: [address] Individuals with unstable creatinine concentrations, including patients and those with serious co-morbid conditions. Patients with extremes in muscle mass or diet. The data above are obtained from the National Kidney Disease Education Program (NKDEP) which additionally recommends that when the eGFR is used in patients with extremes of body mass index for purposes of drug dosing, the eGFR should be multiplied by the estimated BMI. ELECTROLYTE BUN 9 mg/dL 7 - 22 10/[address] ELECTROLYTE Creatinine 1.03 mg/dL 0.50 - 10/13 [facility] Lvl 1.40 [facility] ELECTROLYTE Sodium Lvl 139 meq/L 135 - 145 10/[address] ELECTROLYTE Potassium Lvl 4.0 meq/L 3.5 - 5.1 10/[address] ELECTROLYTE Chloride Lvl 106 meq/L 95 - 109 10/[address] ELECTROLYTE CO2 26 meq/L 24 - 32 10/[address] ELECTROLYTE Calcium Lvl 8.7 mg/dL 8.5 - 10.5 10/[address] HEMATOLOGY MPV 8.8 fL 7.4 - 10.4 10/[address] HEMATOLOGY Platelet 190 K/CMM 133 - 450 10/[address] HEMATOLOGY MCH 28.5 pg 27.0 - 10/13 [facility] 31.0 [facility] HEMATOLOGY MCV 86.1 fL 80.0 - 10/13 [facility] 94.0 [facility] HEMATOLOGY MCHC 33.1 g/dL 32.0 - 10/13 [facility] 36.0 [facility] HEMATOLOGY RDW 13.6 % 11.5 - 10/13 [place] 14.5 [facility] HEMATOLOGY RBC 5.35 M/CMM 4.70 - 10/13 [place] 6.10 [facility] HEMATOLOGY WBC 16.9 K/CMM 3.7 - 10.4 10/13 [facility]2017 [facility] HEMATOLOGY Plt Morph Normal 10/13 [facility]2017 [facility] (10/12/17 11:58 PM) [place] HEMATOLOGY Segs 78.1 % 45.0 - 10/13 [place] 75.0 [facility] HEMATOLOGY RBC Morph Normal 10/13 [facility] (10/12/17 11:58 PM) [place] HEMATOLOGY Segs-Bands # 13.2 K/CMM 1.5 - 8.1 10/13 2017 [facility] HEMATOLOGY Lymphocytes # 2.1 K/CMM 1.0 - 5.5 10/13 [facility]2017 [facility] HEMATOLOGY Basophils # 0.1 K/CMM 0.0 - 0.2 10/[address] HEMATOLOGY Monocytes # 1.5 K/CMM 0.0 - 0.8 10/[address] HEMATOLOGY Basophils 0.5 % 0.0 - 1.0 10/[address] HEMATOLOGY Monocytes 9.1 % 2.0 - 12.0 10/[address] HEMATOLOGY Eosinophils 0.1 % 0.0 - 4.0 10/[address] HEMATOLOGY Lymphocytes 12.2 % 20.0 - 10/13 [facility] 40.0 [facility] Pelvis AP Pelvis AP DX EXAM: XR PELVIS 1 VIEW 10/13 - [facility] DX /2017 - [facility] [place] This report was dictated by a Dry Finisher/Fellow. I have personally reviewed the images as Center well as the Resident's interpretation and agree with the findings. DATE: 10/13/2017 2:19 AM CDT Read by: Aldair Granados MD Resident: Aldair Granados MD Dictated Date/time: 10/13/17 02:33 Electronically Signed by: Yaakov Galindo MD 10/13/17 04:29 FINAL REPORT INDICATION: - s/p sheet application COMPARISON: CT examination of the pelvis dated 10/13/2017. TECHNIQUE: Frontal pelvis FINDINGS: There is diastasis of the symphysis pubis, measuring up to 1.9 cm, as well as mild widening of the left SI joint. A radiopaque object is seen crossing diagonally across the abdomen and pelvis, with tip overlying the expected location of the bladder. A Dhillon catheter seen with tip overlying the expected position of the bladder. IMPRESSION: 1. Diastasis of the symphysis pubis, with widening of the left SI joint, consistent with open book type pelvic injury, better appreciated on the prior CT examinations. 2. Radiopaque object overlying the abdomen and pelvis, with tip overlying the expected position of the bladder. UT SECTION: ER Pelvis wo Pelvis wo IV EXAM: CT PELVIS WITHOUT CONTRAST 10/13 - [facility] IV contrast/w /2018 - Medical contrast/w CT This report was dictated by a Dry Finisher/ Fellow. I have personally reviewed the images as Center 3D CT well as the Resident's interpretation and agree with the findings. DATE: 10/13/2017 12:51 AM CDT Read by: Aldair Granados MD Resident: Aldair Granados MD Dictated Date/time: 10/13/17 01:03 Electronically Signed by: Yaakov Galindo MD 10/13/17 05:13 FINAL REPORT INDICATION: - 2mm (Thin cuts) COMPARISON: Outside CT examination of the chest abdomen and pelvis dated TECHNIQUE: Volumetric CT acquisition of the pelvis without contrast. Axial , sagittal and coronal reconstructions. Exam performed with the pelvic binder in place. IV contrast: None. DLP: 242 mGy-cm UT SECTION: ER FINDINGS: Bones: * There is pubic symphysis diastasis, measuring up to 1.0 cm (image 81 of series 2). * In addition, there is slight widening of the anterior aspect of the left SI joint, best appreciated on images 39-46 of series 2. * The right SI joint is normal. Intrapelvic soft tissues: * There is extensive complex density fluid seen in the prevesicular space , tracking into the bilateral inguinal canals and along the inferior aspect of the rectus muscles bilaterally * A Dhillon catheter is present within the bladder. * Colonic diverticulosis is noted. Surrounding soft tissues: There is minimal soft tissue stranding within the subcutaneous fat of the anterior abdominal wall. IMPRESSION: 1. Pubic symphysis diastasis and widening of the anterior aspect of the left SI joint, overall consistent with an open book pelvic injury. 2. Associated large, predominantly prevesicular, soft tissue hematoma. Torso-Outsi Torso-Outside EXAM: CT CHEST WITH CONTRAST 10/13 - [facility] Consult Consult CT /2017 - Medical CT This report was dictated by a Dry Finisher/Fellow. I have personally reviewed the images as Center well as the Resident's interpretation and agree with the findings. DATE: 10/12/2017 at 2239 hours Read by: Aldair Granados MD Resident: Aldair Granados MD Dictated Date/time: 10/13/17 00:46 Electronically Signed by: Yaakov Galindo MD 10/13/17 04:53 FINAL REPORT INDICATION: Trauma, second interpretation requested. ADDITIONAL INFORMATION: '57 yr M via LF, transfer from [facility], s/p fall from horse. 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 GCS 15, on [place].' COMPARISON: None TECHNIQUE: Axial, coronal and sagittal CT images of the chest, abdomen and pelvis, with contrast. Contrast phases: Venous and delayed UT SECTION: ER FINDINGS: Lines and tubes: None. Lower Neck: Supraclavicular soft tissues are unremarkable. Thoracic Aorta and Mediastinum: No mediastinal hematoma or thoracic aortic injury. Normal heart and pericardium. Lungs, Pleura, Diaphragm: * Dependent opacities in the lung bases consistent with atelectasis. * No pulmonary contusions. * No pleural effusion or pneumothorax. * There is a calcified granuloma in the left lower lobe. * No diaphragmatic injury. Liver and biliary tree: * A few scattered subcentimeter hepatic hypodensities are too small to characterize. * No injury. * No biliary abnormality. Gallbladder: Normal. No CT evidence of gallstones. No injury. Pancreas: Normal. No injury. Spleen: Normal. No injury. Adrenals: Normal. No injury. Kidneys and ureters: * Simple density cysts are seen in the superior and inferior poles of the right kidney, measuring up to 2.7 cm in size. * The kidneys are otherwise normal in appearance. No renal injury. Bladder/perivesicular space: * There is a large complex density fluid collection centered in the prevesical space, tracking superiorly along the inferior aspect of the rectus muscles into the bilateral inguinal canals. * The bladder is mildly distended with urine, and otherwise normal in appearance Reproductive organs: No injury. Gastrointestinal tract: * No dilated loops of bowel or air-fluid level. * No bowel injury. * Normal appendix. Peritoneum and retroperitoneum: No fluid collections or free air. Lymph nodes: Normal. Vasculature: No vascular injury. Spine/ Bones: * There is diastasis of the symphysis pubis, measuring up to 1.6 cm ( image 88 of series 701). * In addition, there is widening of the SI joint on the left anteriorly, measuring up to 4 mm (image 71 of series 701), with associated stranding and minimal foci of gas seen in the soft tissues anteriorly. * There is a small articulating transverse process on the right at L1. * There are mild multilevel degenerative changes of the spine, worst at the level L3-L4, where there are Modic changes and vacuum disc phenomenon. Soft tissues: Minimal soft tissue stranding is seen in the subcutaneous fat of the lower anterior abdominal wall. IMPRESSION: 1. Diastasis of the symphysis pubis and widening of the anterior aspect of the left SI joint, consistent with an open pelvic pelvic injury. 2. Associated, large, predominantly prevesicular hematoma. Spine-Outsi Spine-Outside EXAM: CT CERVICAL SPINE WITHOUT CONTRAST 10/13 - [facility] Consult Consult CT /2018 - Medical CT This report was dictated by a Dry Finisher/Fellow. I have personally reviewed the images as Center well as the Resident's interpretation and agree with the findings. DATE: 10/13/2017 12:08 AM CDT Read by: Aldair Granados MD Resident: Aldair Granados MD Dictated Date/time: 10/13/17 00:43 Electronically Signed by: Yaakov Galindo MD 10/13/17 04:35 FINAL REPORT INDICATION: Trauma, second interpretation requested ADDITIONAL INFORMATION: '57 yr M via LF, transfer from [facility], s/p fall from horse. 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 Axial, sagittal and coronal images provided. UT SECTION: ER FINDINGS: The spine is imaged from the skull base to the level of mid T2. There is straightening of the normal curvature of the cervical spine. No acute fracture or malalignment is identified. Mild multilevel degenerative changes are noted, worst at the levels of C5- C6 and C6-C7, where there is mild anterior osteophyte formation. There is minimal bilateral uncovertebral hypertrophy at C6-C7 bilaterally. There is mild dependent subsegmental atelectasis in the lung apices IMPRESSION: 1. No acute abnormality of the cervical spine. Brain-Outsi Brain-Outside EXAM: CT BRAIN WITHOUT CONTRAST 10/13 [facility] de Consult Consult CT /2018 - Medical CT This report was dictated by a Dry Finisher/Fellow. I have personally reviewed the images as Center well as the Resident's interpretation and agree with the findings. Read by: Aldair Granados MD Resident: Aldair Granados MD Dictated Date/time: 10/13/17 00:40 DATE: 10/13/2017 12:08 AM CDT Electronically Signed by: Navin Connor MD 10/13/17 01:20 FINAL REPORT INDICATION: Trauma, second opinion COMPARISON: None. TECHNIQUE: Formal interpretation of a CT examination of the brain performed at an outside institution is requested after patient transfer for a higher level of care. The study was performed at [facility]& apo;[facility] October 12, 2017 10:44 PM.The exam consists of 30 images. FINDINGS: There is no edema, hemorrhage, mass lesion or other acute intracranial abnormality. The degree of volume loss present is not advanced for age. There is no chronic abnormality. Mild right parietal scalp soft tissue swelling is present laterally. There is no fracture of the skull, skull base, or visible facial bones. IMPRESSION: Superficial injuries. No acute intracranial abnormality. Pelvis AP Pelvis AP DX EXAM: Pelvis AP DX XR PELVIS 1 VIEW 10/12 [facility] DX /2018 - [facility] DATE: 10/12/2017 11:42 PM CDT Read by: Yaakov Galindo MD Dictated Date/time: 10/13/17 00:09 Electronically Signed by: Yaakov Galindo MD 10/13/17 00:13 FINAL REPORT INDICATION: Fall - Fall ADDITIONAL HISTORY: '57 yr M via LF, transfer from [facility], s/p fall from horse. 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 TECHNIQUE: A single AP supine radiograph of the pelvis. FINDINGS: A pelvic binder is in place. There has been reduction in pubic symphysis diastasis measuring approximately 1.9 cm where previously it measured 3.2 cm. The right sacroiliac joint is of normal a ppearance. The left sacroiliac joint is obscured due to contrast opacifying the urinary bladder. No acute fracture is identified. 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 The soft tissues are unremarkable. The included bowel gas pattern is unremarkable. IMPRESSION: 1. Reduction in pubic symphysis diastasis following placement of a pelvic binder. Chest 1view Chest 1view EXAM: Chest [facility] DX 10/12 - [facility] DX /2017 [facility] DATE: 10/12/2017 11:42 PM CDT Read by: Yaakov Galindo MD Dictated Date/time: 10/13/17 00:05 Electronically Signed by: Yaakov Galindo MD 10/13/17 00:08 FINAL REPORT INDICATION: Fall - Fall ADDITIONAL HISTORY: '57 yr M via LF, transfer from [facility], s/p fall from horse. 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 TECHNIQUE: Portable AP chest with a total of 1 image(s). FINDINGS: Lines, tubes, devices: Numerous cardiac monitoring leads overlie the chest. Lungs: The lung volumes are diminished with bibasilar subsegmental atelectasis, greater on the left. Pleura: There is no pleural effusion or pneumothorax identified given the technique. Heart and mediastinum: The heart size is top normal for technique. The pulmonary vasculature is normal. The mediastinal contours are normal. Bones: No acute bony abnormality is identified. Soft Tissue: The soft tissues are unremarkable. IMPRESSION: 1. Diminished lung volumes with bibasilar subsegmental atelectasis, greater on the left. Vital Signs Vital Sign Value Date Comments Source Respitory Rate 18 10/15/2017 [facility] Temperature Oral (F) 98.8 F 10/15/2017 [facility] Systolic (mm Hg) 118 10/15/2017 [facility] Diastolic (mm Hg) 82 10/15/2017 [facility] Heart Rate 96 10/15/2017 [facility] Respitory Rate 20 10/15/2017 [facility] Systolic (mm Hg) 120 10/15/2017 [facility] Diastolic (mm Hg) 80 10/15/2017 [facility] Heart Rate 96 10/15/2017 [facility] Temperature Oral (F) 98.7 F 10/15/2017 [facility] Temperature Oral (F) 98.6 F 10/15/2017 [facility] Systolic (mm Hg) 117 10/15/2017 [facility] Diastolic (mm Hg) 85 10/15/2017 [facility] Respitory Rate 18 10/15/2017 [facility] Heart Rate 91 10/15/2017 [facility] BMI Calculated 32.67 10/13/2017 [facility] Weight 91.818 10/13/2017 [facility] Height 167.64 cm 10/13/2017 [facility] Weight 91.818 10/13/2017 [facility] Encounters Location Location Encounter Encounter Reason Attending ADM DC Status Source Details Type Number For Provider Date Date Visit [facility] [id number] Nooreen 10/13 10/15 [facility] Claudio Riddleg /2017 [facility] Procedures Procedure Code Date Perfomer Comments Source
--- OUTSIDE RECORDS SUMMARY | 2018-05-12 03:28 | XMS REPORT | Summary of Care ---
:1960 Author Organization [facility] Address [address] [place], [place] [address]- Encounter HQ Encntr_zulma(FIN) [id number] Date(s): 10/12/17 - 10/15/[address] Professional Services provided by [facility] [place] [address]- Discharge Disposition: Home or Self Care Attending Physician: Jose Turner MD Admitting Physician: Dianna Rodriguez MD Vital Signs Most recent to oldest 1 2 3 [Reference Range]: Height 167.64 cm (10/13/17 6:33 PM) Temperature Oral [96.4-99.1 98.8 DegF 98.7 DegF 98.6 DegF DegF] (10/15/17 4:14 PM) (10/15/17 12:32 PM) (10/15/17 7:15 AM) Blood Pressure [90-140/60-90 118/82 mmHg 120/80 mmHg 117/85 mmHg mmHg] (10/15/17 4:14 PM) (10/15/17 12:32 PM) (10/15/17 7:15 AM) Respiratory Rate [14-20 BRMIN] 18 BRMIN 20 BRMIN 18 BRMIN (10/15/17 4:14 PM) (10/15/17 12:32 PM) (10/15/17 7:15 AM) Peripheral Pulse Rate [60-100 96 bpm 96 bpm 91 bpm bpm] (10/15/17 4:14 PM) (10/15/17 12:32 PM) (10/15/17 7:15 AM) Weight 91.818 kg 91.818 kg (10/13/17 6:33 PM) (10/12/17 11:43 PM) Body Mass Index 32.67 m2 (10/13/17 6:33 PM) Problem List No data available for this section Allergies, Adverse Reactions, Alerts Substance Reaction Severity Status NKDA Active Medications acetaminophen 500 mg, 1 tab, Route: PO, Drug form: TAB, Q4H, Dosing Weight 91.818, kg, PRN Pain 1-3/Temp > 100.4 F, Start date: 10/13/17 4:29:00 CDT, Duration: 30 day, Stop date: 11/12/17 4:28:00 CDT Notes: Max acetaminophen 4000 mg/day (4 gm/day). (Same as: Tylenol Extra Strength) Start Date: 10/13/17 Stop Date: 10/15/17 Status: Discontinuedacetaminophen (ANES) Route: IV, Drug form: INJ, ONCE, Stop date: 10/13/17 14:57:00 CDT Start Date: 10/13/17 Stop Date: 10/13/17 Status: CompletedAleve 250 mg, 1 tab, Route: PO, Drug form: TAB, Q8H, Dosing Weight 91.818, kg, PRN Pain Score 4-6, Start date: 10/14/17 12:06:00 CDT, Duration: 30 day, Stop date: 11/13/17 12:05:00 CDT Notes: (Same as: Naprosyn) Take with food. Start Date: 10/14/17 Stop Date: 10/15/17 Status: DiscontinuedceFAZolin (ANES) Route: IV, Drug form: INJ, ONCE, Stop date: 10/13/17 14:12:00 CDT Start Date: 10/13/17 Stop Date: 10/13/17 Status: CompletedceFAZolin (SCIP) 2 gm, 20 mL, Route: IVPB, Drug form: SOLN, ABXQ8H, Dosing Weight 91.818, kg, Start date: 10/13/17 22:00:00 CDT, Duration: 3 doses or times, Stop date: 14:00:00 CDT, ABX Indication: Surgical Prophylaxis Notes: (Same as Ancef) Start Date: 10/13/17 Stop Date: 10/14/17 Status: Completedcetirizine 5 mg oral tablet 5 mg=1 tab, PO, Daily, 0 Refill(s) Start Date: 10/15/17 Status: Ordereddexamethasone (ANES) Route: IV, Drug form: INJ, ONCE, Stop date: 10/13/17 14:37:00 CDT Start Date: 10/13/17 Stop Date: 10/13/17 Status: Completedenoxaparin 30 mg, 0.3 mL, Route: SUB-Q, Drug form: INJ, Q12H, Dosing Weight 91.818, kg, Start date: 10/13/17 9:00:00 CDT, Stop date: 11/11/17 9:00:00 CDT Notes: (Same as: Lovenox) Start Date: 10/13/17 Stop Date: 10/15/17 Status: Discontinuedenoxaparin 30 mg/0.3 mL subcutaneous solution 30 mg=0.3 mL, SUB-Q, Q12H, X 21 day, # 42 inj, 0 Refill(s), Pharmacy: [facility] [id number] Start Date: 10/15/17 Stop Date: 11/05/17 Status: OrderedfentaNYL (ANES) Route: IV, Drug form: INJ, ONCE, Stop date: 10/13/17 14:37:00 CDT Start Date: 10/13/17 Stop Date: 10/13/17 Status: CompletedIsolyte S PH 7.4 (ANES) 1000 mL Route: IV, Total Volume: 1,000, Start date: 10/13/17 13:10:00 CDT, Stop date: 14:10:00 CDT Start Date: 10/13/17 Stop Date: 10/13/17 Status: CompletedIsolyte S PH 7.4 1,000 mL 1,000 mL, Rate: 125 ml/hr, Infuse over: 8 hr, Route: IV, Dosing Weight 91.818 kg , Total Volume: 1,000, Priority: STAT, Start date: 10/12/17 23:56:00 CDT, Duration: 1 doses or times, Stop date: 187:55:00 CDT Notes: (Same as: Isolyte S PH 7.4) Start Date: 10/12/17 Stop Date: 10/13/17 Status: CompletedketOROLAC 30 mg, 1 mL, Route: IV, Drug form: INJ, Q6H, Dosing Weight 91.818, kg, PRN Pain Score 7-10, Start date: 10/13/17 4:32:00 CDT, Duration: 4 day, Stop date: 4:31:00 CDT Notes: (Same as:Toradol) IV bolus must be given >15 seconds. Give IM administration slowly and deeply into the muscle.Not for use > 4 days MEDICATION WASTE Product Size: 30 mgProduct Wasted: _0__ mg Start Date: 10/13/17 Stop Date: 10/15/17 Status: Discontinuedlabetalol 10 mg, 2 mL, Route: IVP, Drug form: INJ, Q15Min, Dosing Weight 91.818, kg, PRN Hypertension, Start date: 10/13/17 16:15:00 CDT, Duration: 3 doses or times, Stop date: 11/13/17 0:00:00 CDT Start Date: 10/13/17 Stop Date: 10/15/17 Status: DiscontinuedLactated Ringers (Bolus) IV 1,000 mL, 2,000 ml/hr, Route: IV, ONCE, Priority: STAT, Dosing Weight 91.818 kg , Start date: 10/12/17 23:56:00 CDT, Stop date: 10/12/17 23:56:00 CDT Start Date: 10/12/17 Stop Date: 10/12/17 Status: Completedlidocaine (ANES) Route: IV, Drug form: INJ, ONCE, Stop date: 10/13/17 14:37:00 CDT Start Date: 10/13/17 Stop Date: 10/13/17 Status: Completedmethocarbamol 500 mg oral tablet 500 mg=1 tab, PO, Q8H, X 5 day, # 15 tab, 0 Refill(s), Pharmacy: [facility] [id number] Start Date: 10/15/17 Stop Date: 10/20/17 Status: Orderedmetoprolol (ANES) Route: IV, Drug form: INJ, ONCE, Stop date: 10/13/17 14:47:00 CDT Start Date: 10/13/17 Stop Date: 10/13/17 Status: Completedmorphine Sulfate 4 mg, Route: IVP, ONCE, Dosing Weight 91.818, kg, Start date: 10/13/17 5:30:00 CDT, Stop date: 10/13/17 5:30:00 CDT Start Date: 10/13/17 Stop Date: 10/13/17 Status: Completedmorphine Sulfate 4 mg, Route: IVP, ONCE, Dosing Weight 91.818, kg, Start date: 10/13/17 5:30:00 CDT, Stop date: 10/13/17 5:30:00 CDT Start Date: 10/13/17 Stop Date: 10/13/17 Status: Completednaproxen 250 mg oral tablet 250 mg=1 tab, PO, Q8H, PRN Pain Score 4-6, X 5 day, # 20 tab, 0 Refill(s), Pharmacy: [facility] [id number] Start Date: 10/15/17 Stop Date: 10/20/17 Status: OrderedniCARdipine (ANES) Route: IV, Drug form: INJ, ONCE, Stop date: 10/13/17 14:57:00 CDT Start Date: 10/13/17 Stop Date: 10/13/17 Status: CompletedNicoderm C-Q Clear 21 mg/24 hr transdermal film, extended release =1 patch, TOP, Daily, X 7 day, # 7 patch, 0 Refill(s), [id number] Start Date: 10/15/17 Stop Date: 10/22/17 Status: Orderednicotine 21 mg, 1 patch, Route: TOP, Drug form: ERFILM, Daily, Dosing Weight 91.818, kg, Start date: 189:00:00 CDT, Duration: 30 day, Stop date: 11/11/17 9:00:00 CDT Notes: (Same as: Habitrol)"Remove old patch before application of new patch "WASTE: F/P - P Waste Black; E - P Waste Black Start Date: 10/13/17 Stop Date: 10/15/17 Status: DiscontinuedNorco 5/325 oral tablet 1 tab, Route: PO, Drug Form: TAB, Dosing Weight 91.818, kg, Q4H, PRN Pain Score 6-10, Start date: 10/13/17 4:32:00 CDT, Duration: 30 day, Stop date: 11/12/17 4: 31:00 CDT Notes: (Same as: Kintyre 325/5) Do not exceed 4gm/day of acetaminophen. Start Date: 10/13/17 Stop Date: 10/15/17 Status: DiscontinuedNorco 5/325 oral tablet 1 tab, PO, Q4H, PRN Pain Score 6-10, X 7 day, # 15 tab, 0 Refill(s), given to patient Start Date: 10/15/17 Stop Date: 10/22/17 Status: Orderedondansetron 4 mg, 2 mL, Route: IVP, Drug form: INJ, Q6H, Dosing Weight 91.818, kg, PRN Nausea & Vomiting, Start date: 10/13/17 4:29:00 CDT, Duration: 30 day, Stop date: 11/12/17 4:28:00 CDT Notes: (Same as: Michelle) MEDICATION WASTE Product Size: 4 mgProduct Wasted: 0__ mg Start Date: 10/13/17 Stop Date: 10/15/17 Status: Discontinuedpneumococcal 23-valent vaccine 0.5 mL, Route: IM, Drug Form: INJ, ONCALL, Start date: 10/14/17 6:46:53 CDT, Stop date: 11/13/17 6:41:53 CDT Notes: (Same as: Pneumovax 23) Refrigerate Start Date: 10/14/17 Stop Date: 10/15/17 Status: Discontinuedpropofol (ANES) Route: IV, Drug form: INJ, ONCE, Stop date: 10/13/17 14:37:00 CDT Start Date: 10/13/17 Stop Date: 10/13/17 Status: Completedremove patch 1 patch, Route: TOP, Drug form: ERFILM, Daily, Start date: 10/14/17 9:00:00 CDT , Duration: 30 day, Stop date: 11/12/17 9:00:00 CDT Notes: Remove old patch before application of new patch.WASTE: F/P - P Waste Black; E - P Waste Black Start Date: 10/14/17 Stop Date: 10/15/17 Status: DiscontinuedRobaxin 500 mg, 1 tab, Route: PO, Drug form: TAB, Q8H, Dosing Weight 91.818, kg, Start date: 10/13/17 8:00:00 CDT, Stop date: 11/12/17 0:00:00 CDT Notes: (Same as:Robaxin) Start Date: 10/13/17 Stop Date: 10/15/17 Status: Discontinuedrocuronium (ANES) Route: IV, Drug form: INJ, ONCE, Stop date: 10/13/17 14:37:00 CDT Start Date: 10/13/17 Stop Date: 10/13/17 Status: CompletedSaline Flush 0.9% 10 mL, Route: IVP, Drug Form: INJ, Dosing Weight 91.818, kg, PRN, PRN Line Flush , Start date: 10/12/17 23:56:00 CDT, Duration: 30 day, Stop date: 11/11/17 23:55 :00 CDT Notes: Same as: BD Posiflush Sterile Start Date: 10/12/17 Stop Date: 10/15/17 Status: Discontinuedsenna 17.2 mg, 2 tab, Route: PO, Drug Form: TAB, Dosing Weight 91.818, kg, Bedtime, Start date: 10/13/17 21:00:00 CDT, Duration: 30 day, Stop date: 11/11/17 21:00: 00 CDT Notes: (Same as: Rondaot) Start Date: 10/13/17 Stop Date: 10/15/17 Status: Discontinuedsenna 8.6 mg oral tablet 17.2 mg=2 tab, PO, Bedtime, 0 Refill(s) Start Date: 10/15/17 Status: OrderedSodium Chloride 0.9% IV (ANES) 1000 mL Route: IV, Total Volume: 1,000, Start date: 10/13/17 14:00:00 CDT, Stop date: 15:00:00 CDT Start Date: 10/13/17 Stop Date: 10/13/17 Status: Completedsugammadex 200 mg, 2 mL, Route: IV, Drug form: SOLN, ONCALL, Start date: 10/13/17 16:04:00 CDT, Duration: 1 doses or times, Stop date: 10/13/17 16:04:00 CDT Notes: (Same as: Bridion) Start Date: 10/13/17 Stop Date: 10/15/17 Status: Discontinuedtramadol 50 mg, 1 tab, Route: PO, Drug form: TAB, Q6H, Dosing Weight 91.818, kg, > 50 kg, Start date: 10/13/17 6:00:00 CDT, Stop date: 11/12/17 0:00:00 CDT Notes: Not to exceed 400mg/day. (Same As: Ultram) Start Date: 10/13/17 Stop Date: 10/15/17 Status: DiscontinuedTylenol 650 mg, 20.3 mL, Route: PO, Drug form: LIQ, TID, Dosing Weight 91.818, kg, Start date: 10/14/17 9:00:00 CDT, Duration: 30 day, Stop date: 11/12/17 17:00: 00 CDT Notes: Max qiylcjnbfexxh=3448lm/day (4 gm/day). (Same as: Tylenol) Start Date: 10/14/17 Stop Date: 10/15/17 Status: DiscontinuedZyrTEC 5 mg, 1 tab, Route: PO, Drug form: TAB, Daily, Dosing Weight 91.818, kg, Start date: 10/14/17 12:18:00 CDT, Duration: 30 day, Stop date: 11/13/17 9:00:00 CDT Notes: (Same As: Zyrtec) Start Date: 10/14/17 Stop Date: 10/15/17 Status: Discontinued Results BLOOD BANK RESULTS Most recent to oldest [Reference Range]: 1 2 3 ABO/Rh B POS *Unknown* (10/12/17 11:58 PM) Antibody Scrn Negative (10/12/17 11:58 PM) ELECTROLYTES Most recent to oldest [Reference Range]: 1 2 3 Sodium Lvl [135-145 mEq/L] 141 mEq/L 139 mEq/L (10/14/17 3:44 AM) (10/12/17 11:58 PM) Potassium Lvl [3.5-5.1 mEq/L] 4.2 mEq/L 4.0 mEq/L (10/14/17 3:44 AM) (10/12/17 11:58 PM) Chloride Lvl [95-109 mEq/L] 107 mEq/L 106 mEq/L (10/14/17 3:44 AM) (10/12/17 11:58 PM) CO2 [24-32 mEq/L] 25 mEq/L 26 mEq/L (10/14/17 3:44 AM) (10/12/17 11:58 PM) AGAP [10.0-20.0 mEq/L] 13.2 mEq/L 11.0 mEq/L (10/14/17 3:44 AM) (10/12/17 11:58 PM) CHEM PANEL Most recent to oldest [Reference Range]: 1 2 3 Creatinine Lvl [0.50-1.40 mg/dL] 0.99 mg/dL 1.03 mg/dL (10/14/17 3:44 AM) (10/12/17 11:58 PM) eGFR 96 mL/min/1.73m2 1 91 mL/min/1.73m2 2 *NA* *NA* (10/14/17 3:44 AM) (10/12/17 11:58 PM) BUN [7-22 mg/dL] 13 mg/dL 9 mg/dL (10/14/17 3:44 AM) (10/12/17 11:58 PM) B/C Ratio [6-25] 13 (10/14/17 3:44 AM) Glucose Lvl [70-99 mg/dL] 148 mg/dL 122 mg/dL *HI* *HI* (10/14/17 3:44 AM) (10/12/17 11:58 PM) Total Protein [6.4-8.4 g/dL] 7.2 g/dL (10/14/17 3:44 AM) Albumin Lvl [3.5-5.0 g/dL] 3.1 g/dL *LOW* (10/14/17 3:44 AM) Globulin [2.7-4.2 g/dL] 4.1 g/dL (10/14/17 3:44 AM) A/G Ratio [0.7-1.6] 0.8 (10/14/17 3:44 AM) Calcium Lvl [8.5-10.5 mg/dL] 8.4 mg/dL 8.7 mg/dL *LOW* (10/12/17 11:58 PM) (10/14/17 3:44 AM) ALT [0-65 unit/L] 37 unit/L (10/14/17 3:44 AM) AST [0-37 unit/L] 38 unit/L *HI* (10/14/17 3:44 AM) Alk Phos [39-136 unit/L] 78 unit/L (10/14/17 3:44 AM) Bili Total [0.2-1.3 mg/dL] 0.6 mg/dL (10/14/17 3:44 AM) Lactic Acid Lvl [0.5-2.2 mMol/L] 1.6 mMol/L (10/12/17 11:58 PM) 1Result Comment: The eGFR is calculated using the CKD-EPI formula. In most young , healthy individualsthe eGFR will be >90 mL/min/1.73m2. The eGFR declines with age. An eGFR of 60-89 may be normal insome populations, particularly the elderly, for whom the CKD-EPI formula has not been extensively validated. Use of the eGFR is not recommended in the following populations: Individuals with unstable creatinine concentrations, including patients and those with serious co-morbid conditions. Patients with extremes in muscle mass or diet. The data above are obtained from the National Kidney Disease Education Program ( NKDEP) which additionally recommends that when the eGFR is used in patients with extremes of body mass index for purposesof drug dosing, the eGFR should be multiplied by the estimated BMI.2Result Comment: The eGFR is calculated using the CKD-EPI formula. In most young, healthy individualsthe eGFR will be >90 mL/min/1.73m2. The eGFR declines with age. An eGFR of 60-89 may be normal insome populations, particularly the elderly, for whom the CKD-EPI formula has not been extensively validated. Use of the eGFR is not recommended in the following populations: Individuals with unstable creatinine concentrations, including patients and those with serious co-morbid conditions. Patients with extremes in muscle mass or diet. The data above are obtained from the National Kidney Disease Education Program ( NKDEP) which additionally recommends that when the eGFR is used in patients with extremes of body mass index for purposesof drug dosing, the eGFR should be multiplied by the estimated BMI.CARDIAC ENZYMES Most recent to oldest [Reference Range]: 1 2 3 Troponin-I [0.00-0.40 ng/mL] <0.02 ng/mL (10/13/17 5:58 AM) SPECIAL CHEMISTRY Most recent to oldest [Reference Range]: 1 2 3 Hgb A1C [<=5.6 %] 6.1 % *HI* (10/15/17 4:25 AM) URINE AND STOOL Most recent to oldest [Reference Range]: 1 2 3 UA Turbidity [Clear] Clear (10/14/17 1:29 PM) UA Color [Yellow] Yellow *NA* (10/14/17 1:29 PM) UA pH [5.0-8.0] 6.5 (10/14/17 1:29 PM) UA Spec Grav [<=1.030] 1.023 (10/14/17 1:29 PM) UA Glucose [Negative mg/dL] Negative mg/dL *NA* (10/14/17 1:29 PM) UA Blood [Negative] Negative (10/14/17 1:29 PM) UA Ketones [Negative mg/dL] Negative mg/dL *NA* (10/14/17 1:29 PM) UA Protein [Negative mg/dL] 10 mg/dL *ABN* (10/14/17 1:29 PM) UA Urobilinogen [0.1-1.0 mg/dL] 4.0 mg/dL *HI* (10/14/17 1:29 PM) UA Bili [Negative] Negative *NA* (10/14/17 1:29 PM) UA Leuk Est [Negative] Negative (10/14/17 1:29 PM) UA Nitrite [Negative] Negative (10/14/17 1:29 PM) UA WBC [0-5 /HPF] 6 /HPF *HI* (10/14/17 1:29 PM) UA RBC [0-2 /HPF] 3 /HPF *HI* (10/14/17 1:29 PM) UA Bacteria [None Seen /HPF] Occasional /HPF *NA* (10/14/17 1:29 PM) UA Sq Epi [Few /LPF] Occasional /LPF *NA* (10/14/17 1:29 PM) UA Mucus [None Seen /LPF] Few /LPF *NA* (10/14/17 1:29 PM) HEMATOLOGY Most recent to oldest 1 2 3 [Reference Range]: WBC [3.7-10.4 K/CMM] 14.6 K/CMM 16.0 K/CMM 16.9 K/CMM *HI* *HI* *HI* (10/15/17 4:25 AM) (10/14/17 3:44 AM) (10/12/17 11:58 PM) RBC [4.70-6.10 M/CMM] 4.53 M/CMM 4.78 M/CMM 5.35 M/CMM *LOW* (10/14/17 3:44 AM) (10/12/17 11:58 PM) (10/15/17 4:25 AM) Hgb [14.0-18.0 g/dL] 13.0 g/dL 13.7 g/dL 14.3 g/dL *LOW* *LOW* (10/13/17 5:58 AM) (10/15/17 4:25 AM) (10/14/17 3:44 AM) Hct [42.0-54.0 %] 38.9 % 41.0 % 42.4 % *LOW* *LOW* (10/13/17 5:58 AM) (10/15/17 4:25 AM) (10/14/17 3:44 AM) MCV [80.0-94.0 fL] 85.8 fL 85.7 fL 86.1 fL (10/15/17 4:25 AM) (10/14/17 3:44 AM) (10/12/17 11:58 PM) MCH [27.0-31.0 pg] 28.6 pg 28.7 pg 28.5 pg (10/15/17 4:25 AM) (10/14/17 3:44 AM) (10/12/17 11:58 PM) MCHC [32.0-36.0 g/dL] 33.3 g/dL 33.5 g/dL 33.1 g/dL (10/15/17 4:25 AM) (10/14/17 3:44 AM) (10/12/17 11:58 PM) RDW [11.5-14.5 %] 13.6 % 13.9 % 13.6 % (10/15/17 4:25 AM) (10/14/17 3:44 AM) (10/12/17 11:58 PM) MPV [7.4-10.4 fL] 8.9 fL 8.8 fL 8.8 fL (10/15/17 4:25 AM) (10/14/17 3:44 AM) (10/12/17 11:58 PM) Platelet [133-450 K/CMM] 188 K/CMM 204 K/CMM 190 K/CMM (10/15/17 4:25 AM) (10/14/17 3:44 AM) (10/12/17 11:58 PM) Segs [45.0-75.0 %] 63.3 % 75.2 % 78.1 % (10/15/17 4:25 AM) *HI* *HI* (10/14/17 3:44 AM) (10/12/17 11:58 PM) Lymphocytes [20.0-40.0 %] 24.7 % 12.8 % 12.2 % (10/15/17 4:25 AM) *LOW* *LOW* (10/14/17 3:44 AM) (10/12/17 11:58 PM) Monocytes [2.0-12.0 %] 10.0 % 11.8 % 9.1 % (10/15/17 4:25 AM) (10/14/17 3:44 AM) (10/12/17 11:58 PM) Eosinophils [0.0-4.0 %] 1.3 % 0.1 % (10/15/17 4:25 AM) (10/12/17 11:58 PM) Basophils [0.0-1.0 %] 0.7 % 0.2 % 0.5 % (10/15/17 4:25 AM) (10/14/17 3:44 AM) (10/12/17 11:58 PM) Segs-Bands # [1.5-8.1 9.2 K/CMM 12.0 K/CMM 13.2 K/CMM K/CMM] *HI* *HI* *HI* (10/15/17 4:25 AM) (10/14/17 3:44 AM) (10/12/17 11:58 PM) Lymphocytes # [1.0-5.5 3.6 K/CMM 2.1 K/CMM 2.1 K/CMM K/CMM] (10/15/17 4:25 AM) (10/14/17 3:44 AM) (10/12/17 11:58 PM) Monocytes # [0.0-0.8 K/CMM] 1.5 K/CMM 1.9 K/CMM 1.5 K/CMM *HI* *HI* *HI* (10/15/17 4:25 AM) (10/14/17 3:44 AM) (10/12/17 11:58 PM) Eosinophils # [0.0-0.5 0.2 K/CMM K/CMM] (10/15/17 4:25 AM) Basophils # [0.0-0.2 K/CMM] 0.1 K/CMM 0.1 K/CMM (10/15/17 4:25 AM) (10/12/17 11:58 PM) RBC Morph Normal (10/12/17 11:58 PM) Plt Morph Normal (10/12/17 11:58 PM) ACT (TEG) Rapid [86-118 105 seconds seconds] (10/13/17 2:14 AM) Split Point Rapid 0.5 minutes *NA* (10/13/17 2:14 AM) R-time Rapid [0.4-0.7 0.6 minutes minutes] (10/13/17 2:14 AM) K-time Rapid [0.6-2.3 2.1 minutes minutes] (10/13/17 2:14 AM) Angle Rapid [64-80 degrees] 68 degrees (10/13/17 2:14 AM) Max Amplitude Rapid [52-71 57 mm mm] (10/13/17 2:14 AM) G-value Rapid [5.0-11.6 K 6.6 K d/sc d/sc] (10/13/17 2:14 AM) Estimated % Lysis Rapid 1.3 % [0.0-7.5 %] (10/13/17 2:14 AM) Immunizations No data available for this section Procedures No data available for this section Social History Social History Type Response Smoking Status Current every day smoker; Type: Cigarettes; Ready to change: Yes; Exposed at work; Cigarette Smoking Last 365 Days Yes; Reg Smoking Cessation Counseling Yes; Tobacco use per day: 1; entered on: 10/13/17 Assessment and Plan Extracted from: Title: Clinical Document Author: Hiral Edwards MD Date: 10/15/17 Orthopaedic Trauma Progress Note Surgery: ORIF pubic symphasis, CRPS L SI joint Primary surgeon: Dr Tabares POD: 2 Subjective: Worked well w PT yesterday, ambulated w rolling walker, pain controlled. Had drain disengaged over. Objective: Vitals Tmp(F) Pulse BP RR SpO2 FIO2 10/15 04:03 99.9 97 130/86 20 99 21% 10/15 00:02 99.6 96 123/73 18 100 21% 10/14 20:10 98.7 90 117/78 19 100 21% 10/14 15:45 99.0 92 128/87 20 95 --- 10/14 11:27 98.2 91 116/72 20 95 --- 24 Hr Tmax: 99.9F (37.72c) at 10/15 04:03 Vital Signs are the last 5 in the past 48 hours. Physical Exam: AOx3 LEFT LOWER EXTREMITY EXAM: INSPECTION & PALPATION: dressing c/d/i. HVAC w on tube disengaged from cannister, removed. sunction able to be obtained again. SENSORY: sensation is intact to light touch in: superficial peroneal nerve distribution (over dorsum of foot) deep peroneal nerve distribution (over first dorsal web space) saphenous nerve distribution (medial ankle) MOTOR: + motor EHL (great toe dorsiflexion) + FHL (great toe plantar flexion) + TA (ankle dorsiflexion) + GSC (ankle plantar flexion) VASCULAR: 2+ dorsalis pedis pulse, toes warm and well-perfused Labs: Hg pending for this am Assessment/Plan: 57yo M POD 2 s/p ORIF pubic symphasis, CRPS L SI joint - WBAT RLE, TTWB LLE - maintain dressings and HVAC - one tube removed, monitor for continued drainage today, will pull this afternoon if minimal output - acute blood loss anemia expected, monitor Hg and transfuse as needed - 24 hours post op abx completed - prn pain control - post op CT obtained - PTOT today - rider removed able to urinate, continue to monitor for retention in setting of pelvic trauma - lovenox 30mg BID PREVENT CLOT RESEARCH STUDY for DVT prophylaxis, will need DC on 3 weeks - will follow up 2 weeks [address] op with Dr Tabares - Call with questions Hiral Edwards MD [place] [phone] c [phone] Extracted from: Title: History and Physical Author: Kavita Mirza DO Date: 10/13/17 1.preoperative risk assessment check ECG and Bridgett. due to patient's complaint of unstable angina and his risk factors (age, sex, tobacco use and family history), will order nuclear stress test. 2.Closed pelvic ring fracture OR pending nuclear stress test 3.Male pelvic hematoma Hb 15.2 - repeat Hb 4.Acute pain due to trauma start robaxin 1000 mg Q6 andtramadol 100 mg Q6. ketorolac and norco prn 5.Tobacco dependence start nicotine patch PPX:lovenox [place] DISPO: pending nuclear stress test HOSPITALIST IS PRIMARY; please pageDRBAIGwith questions
--- OUTSIDE RECORDS SUMMARY | 2018-05-12 03:29 | XMS REPORT | Summary of Care ---
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 Medications Name Dates Details Medications not documented Allergies and Adverse Reactions Name Dates Details Allergy history not documented Status: Procedures Procedure Dates Details [U] XRAY PELVIS MIN 3 [id number] Date: 16-Jan-2018 Immunization Name Dates Details Immunizations not documented Social History Name Dates Details Unknown if ever smoked Vital Signs Date Test Result Details No Known Vitals to report Results Date Description Value Details Results not documented Plan of Care Name Dates Details Planned Observations Planned Goals not documented Planned Encounters Appointment; ASIA ESCOBEDO NP On: 21-Jan-2018 11:15 Interventions Provided Labs/Procedures/Imaging[U] XRAY PELVIS MIN 3 [id number]; To Be Done: 21 Jan 2018 Instructions Name Dates Details Instructions not documented Encounters Appointment; ASIA ESCOBEDO NP On: 29-Oct-2017 10:00 Encounter Diagnosis: Problem not documented Appointment; ASIA ESCOBEDO NP On: 03-Dec-2017 10:15 Encounter Diagnosis: Problem not documented Appointment; ASIA ESCOBEDO NP On: 21-Jan-2018 11:15 Encounter Diagnosis: Problem not documented
--- NOTE | 2018-05-12 04:08 | EDPHYS ---
Physician Documentation [facility] Name: Nader Trejo Jr Age: 58 yrs Sex: Male : 1960 Arrival Date: 05/12/2018 Time: 03:25 Bed 18 Private MD: ED Physician Miles Jones HPI: 05/12 04:01 This 58 yrs old Black Male presents to ER via Ambulatory with complaints of Nose Bleed. rn 04:01 The patient presents with a nose bleed. rn 04:05 Onset: The symptoms/episode began/occurred just prior to arrival. Modifying factors: rn The symptoms are alleviated by nothing. the symptoms are aggravated by blowing nose. Severity of symptoms: At their worst the symptoms were mild in the emergency department the symptoms have resolved. The patient has experienced similar episodes in the past. Reports having frequent nosebleeds today, thinks is result of picking his nose and blowing/sneezing forcefully, has not stopped, not on blood thinners. . Historical: - Allergies: 03:43 No Known Allergies; jd3 - Home Meds: 03:43 levothyroxine oral [Active]; Flomax Oral [Active]; jd3 - PMHx: 03:43 COPD; Hypothyroidism; jd3 - PSHx: 03:43 "pelvis sx"; jd3 - Immunization history:: Adult Immunizations up to date, Flu vaccine is up to date. - Social history:: Smoking status: Patient uses tobacco products, smokes one-half pack cigarettes per day. - Ebola Screening: : Patient negative for fever greater than or equal to 101.5 degrees Fahrenheit, and additional compatible Ebola Virus Disease symptoms. - Family history:: not pertinent. - Hospitalizations: : No recent hospitalization is reported. ROS: 04:05 Constitutional: Negative for fever, chills, and weight loss, Eyes: Negative for injury, rn pain, redness, and discharge, ENT: + nosebleed Neck: Negative for injury, pain, and swelling, Cardiovascular: Negative for chest pain, palpitations, and edema, Respiratory: Negative for shortness of breath, cough, wheezing, and pleuritic chest pain, Abdomen/GI: Negative for abdominal pain, nausea, vomiting, diarrhea, and constipation, MS/Extremity: Negative for injury and deformity, Skin: Negative for injury, rash, and discoloration, Neuro: Negative for headache, weakness, numbness, tingling, and seizure. Exam: 04:05 Constitutional: This is a well developed, well nourished patient who is awake, alert, rn and in no acute distress. ENT: No active bleeding of nares, no masses, no infection Vital Signs: 03:43 BP 121 / 91; Pulse 81; Resp 18 S; Temp 99.4(O); Pulse Ox 95% on R/A; Weight 89.36 kg jd3 (R); Height 5 ft. 6 in. (167.64 cm) (R); Pain 4/10; 03:43 Body Mass Index 31.80 (89.36 kg, 167.64 cm) jd3 MDM: 03:40 Patient medically screened. rn 04:05 Differential diagnosis: spontaneous epistaxis. Data reviewed: vital signs, nurses rn notes, and as a result, I will discharge patient. Counseling: I had a detailed discussion with the patient and/or guardian regarding: the historical points, exam findings, and any diagnostic results supporting the discharge/admit diagnosis, the need for outpatient follow up, to return to the emergency department if symptoms worsen or persist or if there are any questions or concerns that arise at home. Special discussion: I discussed with the patient/guardian in detail that at this point there is no indication for admission to the hospital. It is understood, however, that if the symptoms persist or worsen the patient needs to return immediately for re-evaluation. ED course: Nosebleed resolved, gave patient a few clamps and showed how to use, also counseled to stop smoking as may be drying out nares. . Administered Medications: No medications were administered Disposition: 05/12/18 04:08 Discharged to Home. Impression: Epistaxis. - Condition is Stable. - Discharge Instructions: Nosebleed, Adult. - Medication Reconciliation Form, Thank You Letter, Antibiotic Education, Prescription Opioid Use form. - Follow up: Private Physician; When: As needed; Reason: Recheck today's complaints, Re-evaluation by your physician. - Problem is new. - Symptoms have improved. Signatures: Miles Jones MD MD rn Davies, Jonathon, RN RN jd3 Corrections: (The following items were deleted from the chart) 04:16 04:08 05/12/2018 04:08 Discharged to Home. Impression: Epistaxis. Condition is Stable. jd3 Forms are Medication Reconciliation Form, Thank You Letter, Antibiotic Education, Prescription Opioid Use. Follow up: Private Physician; When: As needed; Reason: Recheck today's complaints, Re-evaluation by your physician. Problem is new. Symptoms have improved. rn
--- NOTE | 2018-05-12 04:08 | ER ---
Nurse's Notes [facility] Name: Nader Trejo Jr Age: 58 yrs Sex: Male : 1960 Arrival Date: 05/12/2018 Time: 03:25 Bed 18 Private MD: Diagnosis: Epistaxis Presentation: 05/12 03:39 Presenting complaint: Patient states: "I am having a real bad nose bleed off and on for jd3 several days now." pt reporting a large amount of blood noted. no bleeding noted upon triage. Transition of care: patient was not received from another setting of care. Onset of symptoms was May 10, 2018. Risk Assessment: Do you want to hurt yourself or someone else? Patient reports no desire to harm self or others. Initial Sepsis Screen: Does the patient meet any 2 criteria? No. Patient's initial sepsis screen is negative. Does the patient have a suspected source of infection? No. Patient's initial sepsis screen is negative. Care prior to arrival: None. 03:39 Method Of Arrival: Ambulatory jd3 03:39 Acuity: BING 3 jd3 Historical: - Allergies: 03:43 No Known Allergies; jd3 - Home Meds: 03:43 levothyroxine oral [Active]; Flomax Oral [Active]; jd3 - PMHx: 03:43 COPD; Hypothyroidism; jd3 - PSHx: 03:43 "pelvis sx"; jd3 - Immunization history:: Adult Immunizations up to date, Flu vaccine is up to date. - Social history:: Smoking status: Patient uses tobacco products, smokes one-half pack cigarettes per day. - Ebola Screening: : Patient negative for fever greater than or equal to 101.5 degrees Fahrenheit, and additional compatible Ebola Virus Disease symptoms. - Family history:: not pertinent. - Hospitalizations: : No recent hospitalization is reported. Screenin:46 Abuse screen: Denies threats or abuse. Nutritional screening: No deficits noted. jd3 Tuberculosis screening: No symptoms or risk factors identified. Fall Risk Ambulatory Aid- None/Bed Rest/Nurse Assist (0 pts). Gait- Mental Status- Oriented to own ability (0 pts). Total Dong Fall Scale indicates No Risk (0-24 pts). Assessment: 03:45 General: Appears in no apparent distress. uncomfortable, Behavior is calm, cooperative, jd3 appropriate for age. Pain: Complains of pain in head Quality of pain is described as aching. Neuro: Level of Consciousness is awake, alert, obeys commands, Oriented to person, place, time, situation. Cardiovascular: Capillary refill < 3 seconds Patient's skin is warm and dry. Respiratory: Airway is patent Respiratory effort is even, unlabored, Respiratory pattern is regular, symmetrical, Breath sounds are clear bilaterally. GI: No signs and/or symptoms were reported involving the gastrointestinal system. : No signs and/or symptoms were reported regarding the genitourinary system. EENT: Nares are clear Reports nose bleed. Derm: Skin is intact, Skin is dry, Skin is normal, Skin temperature is warm. Musculoskeletal: Circulation, motion, and sensation intact. Range of motion: intact in all extremities. 04:16 Reassessment: Patient appears in no apparent distress at this time. Patient and/or jd3 family updated on plan of care and expected duration. Pain level reassessed. Patient is alert, oriented x 3, equal unlabored respirations, skin warm/dry/pink. Vital Signs: 03:43 BP 121 / 91; Pulse 81; Resp 18 S; Temp 99.4(O); Pulse Ox 95% on R/A; Weight 89.36 kg jd3 (R); Height 5 ft. 6 in. (167.64 cm) (R); Pain 4/10; 03:43 Body Mass Index 31.80 (89.36 kg, 167.64 cm) jd3 ED Course: 03:25 Patient arrived in ED. ds1 03:39 Armani Epperson RN is Primary Nurse. jd3 03:40 Miles Jones MD is Attending Physician. rn 03:41 Triage completed. jd3 03:44 Arm band placed on. jd3 03:46 Patient has correct armband on for positive identification. Bed in low position. Call jd3 light in reach. Side rails up X 1. Adult w/ patient. 04:15 No provider procedures requiring assistance completed. Patient did not have IV access jd3 during this emergency room visit. Administered Medications: No medications were administered Outcome: 04:08 Discharge ordered by . rn 04:15 Discharged to home ambulatory, with family. jd3 04:15 Condition: stable 04:15 Discharge instructions given to patient, family, Instructed on discharge instructions, follow up and referral plans. Demonstrated understanding of instructions, follow-up care. 04:16 Patient left the ED. jd3 Signatures: RolandoBernabei ds1 Miles Jones MD MD rn Davies, Jonathon, RN RN jd3 Corrections: (The following items were deleted from the chart) 03:45 03:39 Presenting complaint: Patient states: "I am having a real bad nose bleed off and jd3 on for several days now." pt reporting a large amount of blood noted. jd3
== END 2018-05-12 04:16 | disposition home or self-care (01) ==
LOC: ER 03:24
DX: R04.0 Epistaxis (principal); E03.9 Hypothyroidism, unspecified; F17.210 Nicotine dependence, cigarettes, uncomplicated
CPT/HCPCS: 99281

== ENCOUNTER 2019-12-17 16:04 | Inpatient (IN) | payer OTHER ==
--- OUTSIDE RECORDS SUMMARY | 2019-12-17 16:08 | XMS REPORT | Continuity of Care Document ---
:1960 Author Organization [facility] Care Team Providers Name Role Phone [facility] Unavailable Un available Problems Problem Status Onset Classification Date Comments Sourc e Date Reported LFLT TRANSFER Active 10/14/19 Miguelito as #[id number] [address] [place] [address] FX DISLOC OF PUBIC Active 10/13/19 M H [place] SYMPHYSIS [address] [place] [address] FALL FROM HORSE Active 10/13/19 [place] [address] [place] [address] Bleeding from nose Active Problem 12/09/2018 Medical (finding) Group Central Active Problem 12/09/2018 Medica l hypothyroidism Group (disorder) Finding of body Active Problem 12/09/2018 Medical mass index Group (finding) Frequent headache Active Problem 12/09/2018 M H Medical (finding) Group Hemoptysis Active Problem 12/09/2018 Medic al (finding) Group Hyperglycemia Active Problem 12/09/2018 Me dical (disorder) Group Patient encounter Active Problem 12/09/2018 H Medical status (finding) [place] up Pulmonary Active Problem 12/09/2018 Medica l emphysema Group (disorder) Simple obesity Active Problem 12/09/2018 [facility] edical (disorder) Group Tobacco user Active Problem 12/09/2018 Med ical (finding) Group OTH FRACTURE OF Active [facility] [place] UNSP PUBIS, INIT Med ical ENCNTR Center Medications Medication Details Route Status Patient Ordering Order Source Instructions Provider Date 200 ACTUAT 2 puff, Active Albuterol 0.09 INHALER, Q4H, 2018 Med ical MG/ACTUAT PRN wheezing, Group Metered Dose coughing, or Inhaler [ProAir shortness of HFA] breath, # 1 ea, 3 Refill(s), Pharmacy: [facility]/pharmacy #[id number] Ciprofloxacin 500 mg = 1 tab, No Longer 500 MG Oral PO, Q12H, 0 Active 2017 Medical Tablet [Cipro] Refill(s) Group Tamsulosin 0.4 mg = 1 cap, Active hydrochloride PO, Daily, 0 2018 Medic al 0.4 MG Oral Refill(s) Group Capsule [Flomax] Thyroxine Daily, 0 Active Refill(s) 2018 Medical Group sennosides, [facility] 17.2 mg = 2 Active [place] 8.6 MG Oral tab, PO, 2018 Medical Tablet Bedtime, 0 Center Refill(s) enoxaparin 30 30 mg = 0.3 mL, Active [place] mg/0.3 mL SUB-Q, Q12H, X 2018 Medical subcutaneous 21 day, # 42 Center solution inj, 0 Refill(s), Pharmacy: [facility] [id number] methocarbamol 500 mg = 1 tab, Active [place] 500 mg oral PO, Q8H, X 5 2018 Medical tablet day, # 15 tab, Center 0 Refill(s), Pharmacy: [facility] [id number] cetirizine 5 mg 5 mg = 1 tab, Active [facility] oral tablet PO, Daily, 0 2018 Medical Refill(s) Center 24 HR Nicotine = 1 patch, TOP, Active H [place] 0.875 MG/HR Daily, X 7 day, 2018 Medi giselle Transdermal # 7 patch, 0 Center Patch [Nicoderm Refill(s), C-Q] Pharmacy: [facility] [id number] Acetaminophen 1 tab, PO, Q4H, Active [facility] 325 MG / PRN Pain Score 2018 Medical Hydrocodone 6-10, X 7 day, Cente r Bitartrate 5 MG # 15 tab, 0 Oral Tablet Refill(s), [[place] 5/325] given to patient naproxen 250 mg 250 mg = 1 tab, Active [facility] oral tablet PO, Q8H, PRN 2018 Medical Pain Score 4-6, Center X 5 day, # 20 tab, 0 Refill(s), Pharmacy: [facility] [id number] Zyrtec Notes: (Same No Longer [facility] As: Zyrtec) Active 2018 Medical Center Aleve Notes: (Same No Longer [facility] as: Naprosyn) Active 2018 Medical Take with food. Center Tylenol Notes: Max No Longer [facility] acetaminophen = Active 2018 Medical 4000mg/day (4 Center gm/day). (Same as: Tylenol) remove patch Notes: Remove No Longer [place] old patch Active 2018 [facility] application of new patch. WASTE: F/P - P Waste Black; E - P Waste Black pneumococcal Notes: (Same No Longer [place] capsular as: Pneumovax Active 2017 [facility] polysaccharide 23) Center type 1 vaccine / Refrigerate pneumococcal capsular polysaccharide type 10A vaccine / pneumococcal capsular polysaccharide type 11A vaccine / pneumococcal capsular polysaccharide type 12F vaccine / pneumococcal capsular polysacchar Cefazolin Notes: (Same as No Longer [facility] [place] Ancef) Active 2018 Medical Center sennosides, [facility] Notes: (Same No Longer [facility] [place] [facility] as: Senokot) Active 2018 [facility] Labetalol 10 mg, 2 mL, [place] Long[place] Route: IVP, Active 2017 Medical Drug form: INJ, [place] Q15Min, Dosing Weight 91.818, kg, PRN Hypertension, Start date: 10/13/17 16:15:00 CDT, Duration: 3 doses or times, Stop date: 11/13/17 0:00:00 CDT sugammadex Notes: (Same No Longer Miguelito as as: [place]) Active 2018 [facility] niCARdipine Route: IV, Drug Inactive [facility] (ANES) form: INJ, 2017 Medical ONCE, Stop Center date: 10/13/17 14:57:00 CDT acetaminophen Route: IV, Drug Inactive [facility] [place] [facility] (ANES) form: INJ, 2017 Medical ONCE, Stop Center date: 10/13/17 14:57:00 CDT metoprolol Route: IV, Drug Inactive [place] (ANES) form: INJ, 2017 Medical ONCE, Stop Center date: 10/13/17 14:47:00 CDT dexamethasone Route: IV, Drug Inactive [facility] [place] [facility] (ANES) form: INJ, 2017 Medical ONCE, Stop Center date: 10/13/17 14:37:00 CDT fentaNYL (ANES) Route: IV, Drug Inactive [facility] form: INJ, 2017 Medical ONCE, Stop Center date: 10/13/17 14:37:00 CDT propofol (ANES) Route: IV, Drug Inactive [place] form: INJ, 2018 Medical ONCE, Stop Center date: 10/13/17 14:37:00 CDT rocuronium Route: IV, Drug Inactive [place] (ANES) form: INJ, 2018 Medical ONCE, Stop Center date: 10/13/17 14:37:00 CDT lidocaine (ANES) Route: IV, Drug Inactive [place] form: INJ, 2018 Medical ONCE, Stop Center date: 10/13/17 14:37:00 CDT ceFAZolin (ANES) Route: IV, Drug Inactive [place] form: INJ, 2017 Medical ONCE, Stop Center date: 10/13/17 14:12:00 CDT Sodium Chloride Route: IV, Inactive [place] 0.9% IV (ANES) Total Volume: 2017 Med ical 1000 mL 1,000, Start Center date: 10/13/17 14:00:00 CDT, Stop date: 10/13/17 15:00:00 CDT Isolyte S PH 7.4 Route: IV, Inactive [place] (ANES) 1000 mL Total Volume: 2018 Med ical 1,000, Start Center date: 10/13/17 13:10:00 CDT, Stop date: 10/13/17 14:10:00 CDT Enoxaparin Notes: (Same No Longer Miguelito as as: Lovenox) Active 2018 [facility] Center Nicotine Notes: (Same No Longer [place] as: Habitrol) Active 2018 Medical "Remove old Center patch before application of new patch" WASTE: F/P - P Waste Black; E - P Waste Black Robaxin Notes: (Same No Longer [place] as:Robaxin) Active 2018 Medical Center Tramadol Notes: [place] to [place] exceed Active 2018 Medical 400mg/day. Center (Same As: Ultram) Morphine 4 mg, Route: Inactive [place] IVP, ONCE, 2017 Medical Dosing Weight Center 91.818, kg, Start date: 10/13/17 5:30:00 CDT, Stop date: 10/13/17 5:30:00 CDT Acetaminophen Notes: (Same No Longer [place] 325 MG / as: [place] Active 2018 Medical Hydrocodone 325/5) Do not Cente r Bitartrate 5 MG exceed 4gm/day Oral Tablet of [[place] 5/325] acetaminophen. ketOROLAC 4 days No Longer Miguelito as MEDICATION Active 2018 Medical WASTE Center Product Size: 30 mg Product Wasted: _0__ mg Acetaminophen Notes: Max No Longer [facility] [place] acetaminophen Active 2017 Medical 4000 mg/day (4 Center gm/day). (Same as: Tylenol Extra Strength) Ondansetron Notes: (Same [place] Long[place] as: Zofran) Active 2018 Medical MEDICATION Center WASTE Product Size: 4 mg Product Wasted: 0__ mg Saline Flush Notes: Same as: No Longer [facility] [place] [facility] 0.9% BD Posiflush Active 2017 [facility] Sterile Center Calcium Chloride 1,000 mL, 2,000 Inactive [place] 0.0014 MEQ/ML / ml/hr, Route: 2018 Mn dical Potassium IV, ONCE, Center Chloride 0.004 Priority: STAT, MEQ/ML / Sodium Dosing Weight Chloride 0.103 91.818 kg, MEQ/ML / Sodium Start date: Lactate 0.028 10/12/17 MEQ/ML 23:56:00 CDT, Injectable Stop date: Solution 10/12/17 23:56:00 CDT Isolyte S PH 7.4 Notes: (Same No Longer [facility] 1,000 mL as: Isolyte S Active 2017 [facility] PH 7.4) Center Allergies, Adverse Reactions, Alerts Substance Category Reaction Severity Reaction Status Date Comments S ource type Reported No Known Assertion Drug Medication allergy Medic al Allergies Group Immunizations Immunization Date Given Site Status Last Updated Comments Edda rce influenza virus 04/15/2018 completed [facility] Medical vaccine, History: Group inactivated<sup>1 [facility] </sup> [facility] Results Order Name Results Value Reference Date Interpretation Comments Edda rce [place] HEMATOLOGY Eosinophils # 0.2 0.0 - 0.5 10/15 [place] /2017 [facility] HEMATOLOGY Eosinophils 1.3 0.0 - 4.0 10/15 [place] /2017 [facility] HEMATOLOGY Lymphocytes 24.7 20.0 - 10/15 [place] 40.0 [facility] HEMATOLOGY Monocytes 10.0 2.0 - 12.0 10/15 [facility] HEMATOLOGY Lymphocytes # 3.6 1.0 - 5.5 10/15 [place] [facility] HEMATOLOGY Monocytes # 1.5 0.0 - 0.8 10/15 s [facility] HEMATOLOGY Segs 63.3 45.0 - 10/15 [place] 75.0 [facility] HEMATOLOGY Basophils 0.7 0.0 - 1.0 10/15 [facility] HEMATOLOGY Segs-Bands # 9.2 1.5 - 8.1 10/15 [facility] HEMATOLOGY Basophils # 0.1 0.0 - 0.2 10/15 s [facility] HEMATOLOGY Hgb 13.0 14.0 - 10/15 18.0 [facility] HEMATOLOGY MCV 85.8 80.0 - 10/15 [place] 94.0 [facility] HEMATOLOGY MCH 28.6 27.0 - 10/15 [place] 31.0 [facility] HEMATOLOGY Hct 38.9 42.0 - 10/15 [place] 54.0 [facility] HEMATOLOGY MCHC 33.3 32.0 - 10/15 [place] 36.0 [facility] HEMATOLOGY RDW 13.6 11.5 - 10/15 [place] 14.5 [facility] HEMATOLOGY Platelet 188 133 - 450 10/15 [facility] HEMATOLOGY MPV 8.9 7.4 - 10.4 10/15 [facility] HEMATOLOGY RBC 4.53 4.70 - 10/15 [place] 6.10 [facility] HEMATOLOGY WBC 14.6 3.7 - 10.4 10/15 [facility] SPECIAL Hgb A1C 6.1 <=5.6 % 10/15 [facility] CHEMISTRY [facility] URINE AND UA Mucus Few /LPF None Seen 10/14 [facility] STOOL /LPF /[address] [place] [address] URINE AND UA Bacteria Occasional None Seen 10/14 [place] STOOL /HPF /HPF /2017 [facility] URINE AND UA WBC 6 0 - 5 10/14 [facility] STOOL [facility] URINE AND UA Sq Epi Occasional Few /LPF 10/14 [facility] /LPF /2017 [facility] URINE AND UA RBC 3 0 - 2 10/14 [facility] /2017 [facility] URINE AND UA Bili Negative Negative 10/14 [facility] *NA* /2017 [facility] (10/14/17 1:29 PM) [place] URINE AND UA Ketones Negative Negative 10/14 [facility] mg/dL mg/dL [facility] URINE AND UA Protein 10 mg/dL Negative 10/14 [facility] mg/dL [facility] URINE AND UA Glucose Negative Negative 10/14 [facility] mg/dL mg/dL /2017 [facility] URINE AND UA Color Yellow Yellow 10/14 [facility] *NA* /2017 [facility] (10/14/17 1:29 PM) [place] URINE AND UA Leuk Est Negative Negative 10/14 [facility] (10/14/17 1:29 PM) [facility] URINE AND UA Blood Negative Negative 10/14 [facility] (10/14/17 1:29 PM) [facility] URINE AND UA Nitrite Negative Negative 10/14 [facility] (10/14/17 1:29 PM) [facility] URINE AND UA 4.0 0.1 - 1.0 10/14 [facility] Urobilinogen /2017 [facility] URINE AND UA Turbidity Clear Clear 10/14 [facility] (10/14/17 1:29 PM) [facility] URINE AND UA pH 6.5 5.0 - 8.0 10/14 [facility] [address] [place] [address] URINE AND UA Spec Grav 1.023 <=1.030 10/14 [facility] CHEM PANEL B/C Ratio 13 6 - 25 10/14 [facility] CHEM PANEL Globulin 4.1 2.7 - 4.2 10/14 [facility] CHEM PANEL AGAP 13.2 10.0 - 10/14 [facility] 20.0 [facility] CHEM PANEL A/G Ratio 0.8 0.7 - 1.6 10/[address] CHEM PANEL eGFR 96 10/14 Result [facility] Comment: The Medical eGFR is Center calculated using the CKD-EPI formula. In most young, healthy individuals the eGFR will be >90 mL/min/1.73m2 . The eGFR declines with age. An eGFR of 60-89 may be normal in some populations, particularly the elderly, for whom the CKD-EPI formula has not been extensively validated. Use of the eGFR is not recommended in the following populations:< br/>
Deena viduals with unstable creatinine concentration s, including patients and those with serious co-morbid conditions.<b r/>
Patie nts with extremes in muscle mass or diet.

The data above are obtained from the National Kidney Disease Education Program (NKDEP) which additionally recommends that when the eGFR is used in patients with extremes of body mass index for purposes of drug dosing, the eGFR should be multiplied by the estimated BMI. CHEM PANEL Bili Total 0.6 0.2 - 1.3 10/[address] CHEM PANEL Alk Phos 78 39 - 136 10/[address] CHEM PANEL Calcium Lvl 8.4 8.5 - 10.5 10/[address] CHEM PANEL Albumin Lvl 3.1 3.5 - 5.0 10/[address] CHEM PANEL Total Protein 7.2 6.4 - 8.4 10/[address] CHEM PANEL AST 38 0 - 37 10/[address] CHEM PANEL ALT 37 0 - 65 10/[address] CHEM PANEL Glucose Lvl 148 70 - 99 10/[address] CHEM PANEL CO2 25 24 - 32 10/[address] CHEM PANEL Sodium Lvl 141 135 - 145 10/[address] CHEM PANEL Creatinine 0.99 0.50 - 10/14 [facility] Lvl 1.40 [facility] CHEM PANEL BUN 13 7 - 22 10/[address] CHEM PANEL Potassium Lvl 4.2 3.5 - 5.1 10/[address] CHEM PANEL Chloride Lvl 107 95 - 109 10/14 [facility]2017 [facility] HEMATOLOGY Platelet 204 133 - 450 10/[address] HEMATOLOGY RDW 13.9 11.5 - 10/14 [facility] 14.5 [facility] HEMATOLOGY WBC 16.0 3.7 - 10.4 10/[address] HEMATOLOGY Hct 41.0 42.0 - 10/14 [place] 54.0 [facility] HEMATOLOGY Hgb 13.7 14.0 - 10/14 18.0 [facility] HEMATOLOGY RBC 4.78 4.70 - 10/14 6.10 [facility] HEMATOLOGY MCHC 33.5 32.0 - 10/14 36.0 [facility] HEMATOLOGY MCH 28.7 27.0 - 10/14 31.0 [facility] HEMATOLOGY MCV 85.7 80.0 - 10/14 94.0 [facility] HEMATOLOGY MPV 8.8 7.4 - 10.4 10/14 [facility] HEMATOLOGY Lymphocytes # 2.1 1.0 - 5.5 10/14 [place] [facility] HEMATOLOGY Monocytes # 1.9 0.0 - 0.8 10/14 a s [facility] HEMATOLOGY Segs 75.2 45.0 - 10/14 75.0 [facility] HEMATOLOGY Segs-Bands # 12.0 1.5 - 8.1 10/14 [facility] HEMATOLOGY Basophils 0.2 0.0 - 1.0 10/14 [facility] HEMATOLOGY Monocytes 11.8 2.0 - 12.0 10/14 [facility] HEMATOLOGY Lymphocytes 12.8 20.0 - 10/14 40.0 [facility] CARDIAC Troponin-I <0.02 0.00 - 10/13 [place] ENZYMES 0.40 [facility] HEMATOLOGY Hgb 14.3 14.0 - 10/13 18.0 [facility] HEMATOLOGY Hct 42.4 42.0 - 10/13 54.0 [facility] HEMATOLOGY K-time Rapid 2.1 0.6 - 2.3 10/13 [facility] HEMATOLOGY R-time Rapid 0.6 0.4 - 0.7 10/13 [facility] HEMATOLOGY [place] 0.5 10/13 [facility] HEMATOLOGY ACT (TEG) 105 86 - 118 10/13 [facility] HEMATOLOGY Estimated % 1.3 0.0 - 7.5 10/13 [place] L[place] [facility] HEMATOLOGY G-value Rapid 6.6 5.0 - 11.6 10/13 [place] [facility] HEMATOLOGY Max Amplitude 57 52 - 71 10/13 [place] Rapid [facility] HEMATOLOGY Angle Rapid 68 64 - 80 10/13 [facility] BLOOD BANK Antibody Scrn Negative 10/13 Miguelito as RESULTS (10/12/17 11:58 PM) /2017 [facility] BLOOD BANK ABO/Rh B POS 10/13 [facility] RESULTS [facility] CHEM PANEL Lactic Acid 1.6 0.5 - 2.2 10/13 [place] L[place] /2017 [facility] ELECTROLYTE AGAP 11.0 10.0 - 10/13 [place] S 20.0 [facility] ELECTROLYTE Glucose Lvl 122 70 - 99 10/13 [facility] S [facility] ELECTROLYTE eGFR 91 10/13 Result [facility] Comment: The Medical eGFR is Center calculated using the CKD-EPI formula. In most young, healthy individuals the eGFR will be >90 mL/min/1.73m2 . The eGFR declines with age. An eGFR of 60-89 may be normal in some populations, particularly the elderly, for whom the CKD-EPI formula has not been extensively validated. Use of the eGFR is not recommended in the following populations:< br/>
Deena viduals with unstable creatinine concentration s, including patients and those with serious co-morbid conditions.<b r/>
Patie nts with extremes in muscle mass or diet.

The data above are obtained from the National Kidney Disease Education Program (NKDEP) which additionally recommends that when the eGFR is used in patients with extremes of body mass index for purposes of drug dosing, the eGFR should be multiplied by the estimated BMI. ELECTROLYTE BUN 9 7 - 22 10/13 [facility] S [facility] ELECTROLYTE Creatinine 1.03 0.50 - 10/13 [facility] S Lvl 1.40 [facility] ELECTROLYTE Sodium Lvl 139 135 - 145 10/13 [place] S [facility] ELECTROLYTE Potassium Lvl 4.0 3.5 - 5.1 10/13 [place] S [facility] ELECTROLYTE Chloride Lvl 106 95 - 109 10/13 Miguelito as S [facility] ELECTROLYTE CO2 26 24 - 32 10/13 [place] S /2017 [facility] ELECTROLYTE Calcium Lvl 8.7 8.5 - 10.5 10/13 [place] S [facility] HEMATOLOGY MPV 8.8 7.4 - 10.4 10/13 [facility] HEMATOLOGY Platelet 190 133 - 450 10/13 [facility] HEMATOLOGY MCH 28.5 27.0 - 10/13 31.0 [facility] HEMATOLOGY MCV 86.1 80.0 - 10/13 94.0 [facility] HEMATOLOGY MCHC 33.1 32.0 - 10/13 [place] 36.0 [facility] HEMATOLOGY RDW 13.6 11.5 - 10/13 [place] 14.5 [facility] HEMATOLOGY RBC 5.35 4.70 - 10/13 [place] 6.10 [facility] HEMATOLOGY WBC 16.9 3.7 - 10.4 10/13 [facility] HEMATOLOGY Plt Morph Normal 10/13 [facility] (10/12/17 11:58 PM) [facility] HEMATOLOGY Segs 78.1 45.0 - 10/13 [place] 75.0 [facility] HEMATOLOGY RBC Morph Normal 10/13 [facility] (10/12/17 11:58 PM) [facility] HEMATOLOGY Segs-Bands # 13.2 1.5 - 8.1 10/13 [facility] HEMATOLOGY Lymphocytes # 2.1 1.0 - 5.5 10/13 [place] [facility] HEMATOLOGY Basophils # 0.1 0.0 - 0.2 10/13 [facility] HEMATOLOGY Monocytes # 1.5 0.0 - 0.8 10/13 [facility] HEMATOLOGY Basophils 0.5 0.0 - 1.0 10/13 [facility] HEMATOLOGY Monocytes 9.1 2.0 - 12.0 10/13 [facility] HEMATOLOGY Eosinophils 0.1 0.0 - 4.0 10/13 a [facility] HEMATOLOGY Lymphocytes 12.2 20.0 - 10/13 [place] 40.0 [facility] Pathology Reports No Data Provided for This Section Diagnostic Reports Report Value Date Source Chest 2 views DX Clinical Indication: - HEMOPTYSIS. Cough. 04/26 [facility] Comparison: 10/12/2017. TECHNIQUE: PA and lateral chest radiographs were performed. (2 views) FINDINGS: LUNGS: Normal lung volumes. No interstitial or airspace opacities. No pleural effusions or pneumothorax. HEART AND MEDIASTINUM: The heart size is normal. The pulmonary vasculature is normal. There is a mildly tortuous thoracic aorta. The trachea is midline. OSSEOUS STRUCTURES: No acute abnormality seen. There is mild dextroconvex scoliosis of the lower thoracic spine. IMPRESSION: 1. No acute cardiopulmonary disease. SL: [id number] Pelvis wo IV EXAM: CT PELVIS WITHOUT CONTRAST 10/13/2017 [facility] contrast/w 3D CT DATE: 10/13/2017 at 1906 hours. Center INDICATION: Eval post reduction ORIF symphysis a nd fixation of left SI joint. COMPARISON: CT chest abdomen and pelvis with con trast on 10/12/2017. TECHNIQUE: Volumetric CT acq uisition of the pelvis without contrast. Axial, sagittal and coronal reconstructions. 3D reconstructions are [...] neural foramina. Hip joint alignment remains preserved bilaterall y. A large marginal osteophyte is seen at L5-S1. Intrapelvic soft tissues: A small fat-containing, direct inguinal hernia is present within the anterior pelvic wall soft tissues at midline. Its neck measures 1.5 cm craniocaudal x 1.5 cm transverse. Th ere are also small, fat-cont aining indirect inguinal hernias bilaterally. A moderate, fat-containing umbilical hernia measures 1.9 cm craniocaudal by 3.2 cm transverse. Surrounding soft tissues: S oft tissue edema/hemorrhage about the anterior pelvic wall soft tissues has improved since the prior study. Amount of subcutaneous emphysema is likely postsurgical in nature. There is a surgical drain t hat courses posterior to the pubic symphysis, curves leftward, and eventually terminates within the deep anterior pelvic wall soft tissues. IMPRESSION: 1. Improved and now satisfa ctory alignment following plate and screw fixation of the pubic symphysis and left sacroiliac joint. 2. Small fat-containing, di rect hernia at midline. Small, fat-containing indirect inguinal hernias bilaterally. Pelvis AP DX EXAM: XR PELVIS 1 VIEW 10/13/2017 [facility] DATE: 10/13/2017 2:19 AM CDT Cent er INDICATION: - s/p sheet application COMPARISON: CT examination of the pelvis dated 0 10/13/2017. TECHNIQUE: Frontal pelvis FINDINGS: There is diastasis of the sy mphysis pubis, measuring up to 1.9 cm, as well as mild widening of the left SI joint. A radiopaque object is seen crossing diagonally across the abdomen and pelvis, with tip overlying the expected location of the bladder. A Rider catheter seen with tip overlying the expected position of the bladder. IMPRESSION: 1. Diastasis of the symphys is pubis, with widening of the left SI joint, consistent with open book type pelvic injury, better appreciated on the prior CT examinations. 2. Radiopaque object overly ing the abdomen and pelvis, with tip overlying the expected position of the bladder. [place] SECTION: ER Pelvis wo IV EXAM: CT PELVIS WITHOUT CONTRAST 10/13/2017 [facility] contrast/w 3D CT DATE: 10/13/2017 12:51 AM CDT Ce nter INDICATION: - 2mm (Thin cuts) COMPARISON: Outside CT exami nation of the chest abdomen and pelvis dated 10/12/2017 TECHNIQUE: Volumetric CT acq uisition of the pelvis without contrast. Axial, sagittal and coronal reconstructions. Exam performed with the pelvic binder in place. IV contrast: None. DLP: 242 mGy-cm [place] SECTION: ER FINDINGS: Bones: * There is pubic symphysis diastasis, measuring up to 1.0 cm (image 81 of series 2). * In addition, there is sli ght widening of the anterior aspect of the left SI joint, best appreciated on images 39-46 of series 2. * The right SI joint is normal. Intrapelvic soft tissues: * There is extensive comple x density fluid seen in the prevesicular space, tracking into the bilateral inguinal canals and along the inferior aspect of the rectus muscles bilaterally * A Rider catheter is present within the bladde r. * Colonic diverticulosis is noted. Surrounding soft tissues: T here is minimal soft tissue stranding within the subcutaneous fat of the anterior abdominal wall. IMPRESSION: 1. Pubic symphysis diastasi s and widening of the anterior aspect of the left SI joint, overall consistent with an open book pelvic injury. 2. Associated large, predominantly prevesicular , soft tissue hematoma. Spine-Outside EXAM: CT CERVICAL SPINE WITHOUT CONTRAST 018 [facility] DATE: 10/13/2017 12:[address] INDICATION: Trauma, second interpretation reques addie ADDITIONAL INFORMATION: '57 yr M via LF, transfer from [place], s/p fall from horse. 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 GCS 15, on NC.' COMPARISON: None TECHNIQUE: Noncontrast CT im ages of the cervical spine. Axial, sagittal and coronal images provided. UT SECTION: ER FINDINGS: The spine is imaged from the skull bas e to the level of mid T2. There is straightening of the normal curvature o f the cervical spine. No acute fracture or malalignment is identified. Mild multilevel degenerative changes are noted, worst at the levels of C5-C6 and C6-C7, where there is mild anterior osteophyte formation. There is minimal bilateral uncovertebral hypertrophy at C6-C7 bilaterally. There is mild dependent subsegmental atelectasis in the lung apices IMPRESSION: 1. No acute abnormality of the cervical spine. Torso-Outside EXAM: CT CHEST WITH CONTRAST 10/13/2017 [facility] DATE: 10/12/2017 at 2239 hours Ce nter INDICATION: Trauma, second interpretation reques addie. ADDITIONAL INFORMATION: '57 yr M via LF, transfer from [place], s/p fall from horse. 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 GCS 15, on NC.' COMPARISON: None TECHNIQUE: Axial, coronal an d sagittal CT images of the chest, abdomen and pelvis, with contrast. Contrast phases: Venous and delayed UT SECTION: ER FINDINGS: Lines and tubes: None. Lower Neck: Supraclavicular soft tissues are unr emarkable. Thoracic Aorta and Mediastin um: No mediastinal hematoma or thoracic aortic injury. Normal heart and pericardium. Lungs, Pleura, Diaphragm: * Dependent opacities in the lung bases consist ent with atelectasis. * No pulmonary contusions. * No pleural effusion or pneumothorax. * There is a calcified granuloma in the left lo wer lobe. * No diaphragmatic injury. Liver and biliary tree: * A few scattered subcentim eter hepatic hypodensities are too small to characterize. * No injury. * No biliary abnormality. Gallbladder: Normal. No CT evidence of gallstone s. No injury. Pancreas: Normal. No injury. Spleen: Normal. No injury. Adrenals: Normal. No injury. Kidneys and ureters: * Simple density cysts are seen in the superior and inferior poles of the right kidney, measuring up to 2.7 cm in size. * The kidneys are otherwise normal in appearanc e. No renal injury. Bladder/perivesicular space: * There is a large complex density fluid collection centered in the prevesical space, tracking superiorly along the inferior aspect of the rectus muscles into the bilateral inguinal canals. * The bladder is mildly dis tended with urine, and otherwise normal in appearance Reproductive organs: No injury. Gastrointestinal tract: * No dilated loops of bowel or air-fluid level. * No bowel injury. * Normal appendix. Peritoneum and retroperitoneum: No fluid collect ions or free air. Lymph nodes: Normal. Vasculature: No vascular injury. Spine/ Bones: * There is diastasis of the symphysis pubis, measuring up to 1.6 cm (image 88 of series 701). * In addition, there is wid ening of the SI joint on the left anteriorly, measuring up to 4 mm (image 71 of series 701), with associated stranding and minimal foci of gas seen in the soft tissues anteriorly. * There is a small articulating transverse proc ess on the right at L1. * There are mild multilevel degenerative changes of the spine, worst at the level L3-L4, where there are Modic changes and vacuum disc phenomenon. Soft tissues: Minimal soft t issue stranding is seen in the subcutaneous fat of the lower anterior abdominal wall. IMPRESSION: 1. Diastasis of the symphys is pubis and widening of the anterior aspect of the left SI joint, consistent with an open pelvic pelvic injury. 2. Associated, large, predominantly prevesicula r hematoma. Brain-Outside EXAM: CT BRAIN WITHOUT CONTRAST 10/13/2017 [facility] DATE: 10/13/2017 12:08 AM CDT INDICATION: Trauma, second opinion COMPARISON: None. TECHNIQUE: Formal interpreta tion of a CT examination of the brain performed at an outside institution is requested after patient transfer for a higher level of care. The study was performed at [facility] amp;[facility] October 12, 2017 10:44 PM.The exam consists of 30 images. FINDINGS: There is no edema, hemorrhag e, mass lesion or other acute intracranial abnormality. The degree of volume loss present is not advanced for age. There is no chronic abnormality. Mild right parietal scalp so ft tissue swelling is present laterally. There is no fracture of the skull, skull base, or visible facial bones. IMPRESSION: Superficial injuries. No acute intr acranial abnormality. Pelvis AP DX EXAM: Pelvis AP DX XR PELVIS 1 VIEW 10/12/2017 [facility] DATE: 10/12/2017 11:[address] INDICATION: Fall - Fall ADDITIONAL HISTORY: '57 yr M via LF, transfer from [facility], s/p fall from horse. 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 TECHNIQUE: A single AP supine radiograph of the pelvis. FINDINGS: A pelvic binder is in place. There has been reduction in pubic symphysis diastasis measuring approximately 1.9 cm where previously it measured 3.2 cm. The right sacroiliac joint is of normal a ppearance. The left sacroili ac joint is obscured due to contrast opacifying the urinary bladder. No acute fracture is identified. 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 The soft tissues are unremar kable. The included bowel gas pattern is unremarkable. IMPRESSION: 1. Reduction in pubic symph ysis diastasis following placement of a pelvic binder. Chest 1view DX EXAM: Chest 1view DX 10/12/2017 [facility] DATE: 10/12/2017 11:[address] INDICATION: Fall - Fall ADDITIONAL HISTORY: '57 yr M via , transfer from [facility], s/p fall from horse. 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 GCS 15, on NC.' COMPARISON: Chest 1 view 10/12/2017 at 2205 hours ; CT chest 10/12/2017. TECHNIQUE: Portable AP chest with a total of 1 i mage(s). FINDINGS: Lines, tubes, devices: Numerous cardiac monitori ng leads overlie the chest. Lungs: The lung volumes are diminished with bibasilar subsegmental atelectasis, greater on the left. Pleura: There is no pleural effusion or pneumothorax identified given the technique. Heart and mediastinum: The h eart size is top normal for technique. The pulmonary vasculature is normal. The mediastinal contours are normal. Bones: No acute bony abnormality is identified. Soft Tissue: The soft tissues are unremarkable. IMPRESSION: 1. Diminished lung volumes with bibasilar subsegmental atelectasis, greater on the left. Consultation Notes No Data Provided for This Section Discharge Summaries No Data Provided for This Section History and Physicals No Data Provided for This Section Vital Signs Vital Sign Value Date Comments Source Temperature Oral (F) 97.8 F 05/21/2018 [facility] Heart Rate 86 05/21/2018 [facility] Respitory Rate 19 05/21/2018 [facility] Height 167.64 cm 05/21/2018 [facility] Systolic (mm Hg) 120 05/21/2018 [facility] Diastolic (mm Hg) 70 05/21/2018 [facility] Height 166.37 cm 05/15/2018 [facility] BMI Calculated 32.19 05/15/2018 [facility] Weight 89.091 05/15/2018 [facility] Temperature Oral (F) 98.3 F 05/15/2018 [facility] Respitory Rate 14 05/15/2018 [facility] Heart Rate 60 05/15/2018 [facility] Systolic (mm Hg) 140 05/15/2018 [facility] Diastolic (mm Hg) 70 05/15/2018 [facility] Weight 88.182 05/12/2018 [facility] Height 167.64 cm 05/12/2018 [facility] BMI Calculated 31.38 05/12/2018 [facility] Systolic (mm Hg) 108 05/12/2018 [facility] Diastolic (mm Hg) 76 05/12/2018 [facility] Heart Rate 94 05/12/2018 [facility] Temperature Oral (F) 98.2 F 05/12/2018 [facility] Respitory Rate 18 10/15/2017 [facility] Temperature Oral (F) 98.8 F 10/15/2017 [facility] Systolic (mm Hg) 118 10/15/2017 [facility] Diastolic (mm Hg) 82 10/15/2017 [facility] Heart Rate 96 10/15/2017 [facility] Respitory Rate 20 10/15/2017 [facility] Systolic (mm Hg) 120 10/15/2017 [facility] [place] Diastolic (mm Hg) 80 10/15/2017 [facility] Heart Rate 96 10/15/2017 [facility] Temperature Oral (F) 98.7 F 10/15/2017 [facility] Temperature Oral (F) 98.6 F 10/15/2017 [facility] Systolic (mm Hg) 117 10/15/2017 [facility] dical [place] Diastolic (mm Hg) 85 10/15/2017 [facility] Respitory Rate 18 10/15/2017 [facility] Heart Rate 91 10/15/2017 [facility] BMI Calculated 32.67 10/13/2017 [facility] Weight 91.818 10/13/2017 [facility] Height 167.64 cm 10/13/2017 [facility] Weight 91.818 10/13/2017 [facility] Encounters Location Location Encounter Encounter Reason Attending ADM SD Stat us Source Details Type Number For Provider Date Date Visit [facility] Inpatient [id number] Nooreen 10/13 10/[address] [facility] 7 [facility] Outpatient [id number] SREEKRISHNA 05/12 [facility] 0 [facility] Outpatient [id number] Sreekrishna 05/12 05/13 [facility] 0 Done Med [facility] Outpatient [id number] SREEKRISHNA 05/14 [facility] 1 DONE [facility] Ambulatory [id number] Sreekrishna 05/14 05/14 [facility]aryngol Pre-Reg 1 Me dical [facility] Outpatient [id number] YULI 05/15 [facility] 2 [place] Outpatient [id number] XRAY VISIT 05/[address] [facility] [id number] XRAY VISIT 05/[address] [facility] Outpatient [id number] Yuli 05/15 05/16 Medicine 2 [facility] Ambulatory [id number] NURSE VISIT 05/15 05/15 Radiology Pre-Reg Medica [facility] Family Outpatient [id number] Yuli 05/15 05/16 Medicine 4 Medical [facility] Outpatient [id number] L RADHA 05/21 Active [facility] 6 [facility] Outpatient [id number] L Radha 05/21 05/22 [facility] Pulmonology 6 Medic al [facility] Outpatient [id number] L RADHA 05/22 Active [facility] 5 [facility] Ambulatory [id number] L Radha 05/22 05/22 M [facility] Pulmonology Pre-Reg [facility] Procedures Procedure Code Date Perfomer Comments Source Control nasal [id number] 05/12/2018 Medical hemorrhage, Group anterior, simple (limited cautery and/or packing) any method Procedure on [id number] Fractured Medical pelvic pelvis. Group region<sup>1</chu p> Assessment and Plan Assessment and Plan Date Source Extracted from:Title: Clinical Document 10/15/2017 [facility] Author: Hiral Edwards MD Date: 10/15/17 Orthopaedic [...] 24 Hr Tmax: 99.9F (37.72c) at 10/15 04:0 3 Vital Signs are the last 5 in the past 48 hours. Physical Exam: AOx3 LEFT LOWER EXTREMITY EXAM: INSPECTION and PALPATION: dressing c/d/i. HVAC w on tube disengage d from cannister, removed. sunction able to be obtained again. SENSORY: sensation is intact to light touch in: superficial peroneal nerve distribution (over dorsum of foot ) deep peroneal nerve distribution (over first dorsal web spac e) saphenous nerve distribution (medial ankle) MOTOR: + [...] today - rider removed able to urinate, continu e to monitor for retention in setting of pelvic trauma - lovenox 30mg BID PREVENT CLOT RESEARCH STUDY for DVT prophylaxis, will need DC on 3 weeks - will follow up 2 weeks [address] op with Dr Tabares - Call with questions Hiral Edwards [place] [phone] c [phone] Extracted from:Title: History and Physical Author: Kavita Mirza DO Date: 10/13/17 1.preoperative risk assessment check ECG and Bridgett. due to patient's comp laint of unstable angina and his risk factors (age, sex, tobacco use and family history), will order nuclear stress test. 2.Closed pelvic ring fracture OR pending nuclear stress test 3.Male pelvic hematoma Hb 15.2 - repeat Hb 4.Acute pain due to trauma start robaxin 1000 mg Q6 andtramadol 100 mg Q6. ketorolac an d norco prn 5.Tobacco dependence start nicotine patch PPX:lovenox SC DISPO: pending nuclear stress test HOSPITALIST IS PRIMARY; please pageDRBAIGwith questions Plan of Care No Data Provided for This Section Social History Social History Date Source Social History TypeResponse 05/15/2018 Charisse kaminski Substance Abuse Use: None. Employment/School Status: Employed. Work/School descripti on: [employer]. Highest education level: High school. Alcohol Never Smoking Status Current every day smoker; Type: Cigarett es; Previous treatment: Counseling; Ready to change: Yes; Concerns about tobacco use in household: No; Exposure to Tobacco Smoke None; Cigarette Smoking Last 365 Days Yes; Reg Smoking Cessation Counseli ng Yes; Tobacco use per day: 1; Started [age] age: 13.0; 1, 2 entered on: 05/21/18 1also dips snuff.28 to 9 a day Social History TypeResponse 10/13/2017 [facility] Smoking Status Current every day smoker; Type: Cigarett es; Ready to change: Yes; Exposed at work; Cigarette Smoking Last 365 Days Yes; Reg Smoking Cessation Counseling Yes; Tobacco use per day: 1; entered on: 10/13/17 Family History No Data Provided for This Section Advance Directives No Data Provided for This Section Functional Status No Data Provided for This Section
[2019-12-17 18:16] LABS: Absolute Lymphocytes (CBC) 0.6 K/uL (0.7-4.9); Basophils % 0.2 % (0-1.3); Hematocrit 46.5 % (39.6-49.0); Lymphocytes % 2.6 % (15.3-44.8); RBC Red Blood Cell Count 5.53 M/uL (4.33-5.43)
--- NOTE | 2019-12-17 18:17 | RAD REPORT ---
EXAM DESCRIPTION: Monica Single View12/17/2019 5:52 pm CLINICAL HISTORY: Chest pain COMPARISON: 2014 FINDINGS: An area of subsegmental atelectasis right lung base Remainder lungs appear clear of acute infiltrate. The heart is normal size Eventration right hemidiaphragm unchanged
[2019-12-17] MEDS ORDERED: NA CHLORIDE 0.9% 500 ML ONE (18:21)
[2019-12-17 18:30] LABS: Albumin 3.4 g/dL (3.4-5.0); Bilirubin Direct 0.5 mg/dL (0-0.2); Bilirubin Total 1.3 mg/dL (0.2-1.0); Potassium 3.3 mmol/L (3.5-5.1); Protein, Total 7.3 g/dL (6.4-8.2)
[2019-12-17 18:37] LABS: Urine Blood 2+ (NEG); Urine Glucose NEGATIVE (NEG); Urine Protein 2+ (NEG); Urine Specific Gravity 1.025 (1.005-1.030)
[2019-12-17 18:45] LABS: Blood Morphology Comment NOT SEEN (NOT SEEN); Platelet Estimate DECR
[2019-12-17 18:55] LABS: Urine Bacteria >50 /HPF (NONE SEEN); Urine Culture Reflex Order REFLEXED
[2019-12-17] MEDS ORDERED: Ciprofloxacin 200mg IV 200 MG/100 ML IV.SOLN. IV ONE (19:15)
[2019-12-17 19:31] LABS: Protime INR 1.58
[2019-12-17] MEDS ORDERED: NA CHLORIDE 0.9% 1,000 ML ONE ×2 (19:33→20:36)
--- NOTE | 2019-12-17 20:19 | ER ---
Nurse's Notes [facility] Name: Nader Trejo Jr Age: 59 yrs Sex: Male : 1960 Arrival Date: 12/17/2019 Time: 16:06 Bed 20 Private MD: Diagnosis: Sepsis, unspecified organism;Urinary tract infection, site not specified Presentation: 12/16 16:11 Chief complaint: Patient states: headache and abd pain since yesterday evening and ss small amount of blood in urine that began this AM. Coronavirus screen: Patient denies a cough. Patient denies shortness of breath or difficulty breathing. Patient denies measured and/or subjective temperature greater than 100.4F prior to today's visit. Patient denies travel on a cruise ship or to a country the [facility] currently lists as an affected area. Patient denies contact with known and/or suspected case of COVID-19. Ebola Screen: Patient denies exposure to infectious person. Patient denies travel to an Ebola-affected area in the 21 days before illness onset. Initial Sepsis Screen: Does the patient meet any 2 criteria? HR > 90 bpm. Does the patient have a suspected source of infection? No. Patient's initial sepsis screen is negative. Risk Assessment: Do you want to hurt yourself or someone else? Patient reports no desire to harm self or others. Onset of symptoms was December 16, 2019. 16:11 Method Of Arrival: Ambulatory ss 16:11 Acuity: BING 2 ss Historical: - Allergies: 16:14 No Known Allergies; ss - PMHx: 16:14 COPD; Hypothyroidism; BPH; ss - Immunization history:: Adult Immunizations up to date. - Social history:: Smoking status: Patient reports the use of cigarette tobacco products, smokes one pack cigarettes per day. Screenin:02 Abuse screen: Denies threats or abuse. Nutritional screening: No deficits noted. Tuberculosis screening: No symptoms or risk factors identified. Fall Risk None identified. Assessment: 16:30 General: Appears in no apparent distress. Behavior is calm, cooperative, appropriate for age. Pain: Complains of pain in headache. Neuro: Level of Consciousness is awake, alert, obeys commands, Oriented to person, place, time, situation, Appropriate for age. Cardiovascular: Capillary refill < 3 seconds Patient's skin is warm and dry. Respiratory: Airway is patent Respiratory effort is even, unlabored, Respiratory pattern is regular, symmetrical. : Reports burning with urination. Derm: Skin is intact, is healthy with good turgor. 16:55 Reassessment: Purvi [phone]. hb 17:30 Reassessment: Patient and/or family updated on plan of care and expected duration. Pain ah level reassessed. Patient is alert, oriented x 3, equal unlabored respirations, skin warm/dry/pink. no needs voiced at this time. 18:30 Reassessment: Patient and/or family updated on plan of care and expected duration. Pain ah level reassessed. Patient is alert, oriented x 3, equal unlabored respirations, skin warm/dry/pink. no needs voiced at this time. 22:50 Reassessment: Patient and/or family updated on plan of care and expected duration. Pain ea level reassessed. Patient is alert, oriented x 3, equal unlabored respirations, skin warm/dry/pink. Report given to miguelina ANDERS on second floor. Vital Signs: 16:11 BP 98 / 63; Pulse 122; Resp 18; Temp 100.3(O); Pulse Ox 97% on R/A; Weight 92.53 kg; ss Height 5 ft. 6 in. (167.64 cm); Pain 8/10; 19:28 BP 88 / 60; Pulse 99; Resp 16; Pulse Ox 92% ; ah 20:45 BP 108 / 66; Pulse 94; Resp 16; Pulse Ox 99% ; ah 21:15 BP 90 / 61; Pulse 94; Resp 16; Pulse Ox 100% ; ah 21:45 BP 103 / 73; Pulse 90; Resp 17; Pulse Ox 100% ; ah 22:57 BP 107 / 78; Pulse 70; Resp 18; Temp 98.9; Pulse Ox 99% ; ea 16:11 Body Mass Index 32.93 (92.53 kg, 167.64 cm) [place] Coma Score: 20:16 Eye Response: spontaneous(4). Verbal Response: oriented(5). Motor Response: obeys snw commands(6). Total: 15. ED Course: 16:06 Patient arrived in ED. ag5 16:14 Triage completed. ss 16:14 Arm band placed on right wrist. ss 16:23 Yusra Katz FNP-C is PHCP. snw 16:23 Dwight Evans MD is Attending Physician. snw 16:34 Juliana Conde, RN is Primary Nurse. ah 17:50 Inserted saline lock: 18 gauge in left antecubital area, using aseptic technique. dh4 17:50 Missed attempt(s): 20 gauge forearm. dh4 17:52 Chest Single View XRAY In Process Unspecified. EDMS 18:25 Notified Nurse Practitioner and/or Physician Senior Physician of a critical lab result(s), WBC hb 22.6. 18:37 Oral contrast given. 2 20:17 Evens Bell is Hospitalizing Provider. snw 20:25 Abdomen In Process Unspecified. EDMS 21:53 Patient has correct armband on for positive identification. Bed in low position. 22:58 No provider procedures requiring assistance completed. Patient admitted, IV remains in ea place. Administered Medications: 18:05 Drug: NS 0.9% 500 ml Route: IV; Rate: bolus; Site: left forearm; 19:05 Drug: Cipro 400 mg Volume: 200 ml; Route: IVPB; Infused Over: 60 mins; Site: left ah forearm; 19:27 Drug: NS 0.9% 1000 ml Route: IV; Rate: 1 bolus; Site: left forearm; 23:01 Follow up: IV Status: Completed infusion; IV Intake: 1000ml ea 20:50 Drug: NS 0.9% 1000 ml Route: IV; Rate: 1 bolus; Site: left forearm; 23:01 Follow up: IV Status: Completed infusion; IV Intake: 1000ml ea 20:50 Drug: Rocephin 2 grams Route: IV; Rate: calculated rate; Site: left forearm; 23:02 Follow up: Response: No adverse reaction; IV Status: Completed infusion ea Intake: 23:01 IV: 1000ml; Total: 1000ml. ea 23:01 IV: 1000ml; Total: 2000ml. ea Outcome: 20:18 Decision to Hospitalize by Provider. snw 22:58 Admitted to Med/surg accompanied by nurse, room 231, Report called to Miguelina ANDERS ea 22:58 Condition: stable 22:58 Instructed on the need for admit. 23:41 Patient left the ED. sg Signatures: Dispatcher [facility] EDSocrates Cook RN RN sg Waters, Shelly, FNP-C FNP-Csnw Madina Nicole, RN RN ss Nidhi Luciano, RN RN Bhumika Irvin 2 Bhavani Hubbard, RN RN Fredy Grajeda [facility] Juliana Conde, RN RN Franco Kasper formerly [facility], 1928–1983
--- NOTE | 2019-12-17 20:19 | EDPHYS ---
Physician Documentation [facility] Name: Nader Trejo Jr Age: 59 yrs Sex: Male : 1960 Arrival Date: 12/17/2019 Time: 16:06 Bed 20 Private MD: ED Physician Dwight Evans HPI: 12/16 17:40 This 59 yrs old Black Male presents to ER via Ambulatory with complaints of Headache. snw 17:40 The patient complains of pain to the generalized. The patient describes the headache as snw aching. Onset: The symptoms/episode began/occurred yesterday. Associated signs and symptoms: Pertinent positives: malaise. Severity of symptoms: At its worst the pain was very mild. Headache History: Denies prior headaches. It is unknown whether or not the patient has had similar symptoms in the past. The patient has not recently seen a physician, the patient's primary care provider is Dr. Marrufo. Historical: - Allergies: 16:14 No Known Allergies; ss - PMHx: 16:14 COPD; Hypothyroidism; BPH; ss - Immunization history:: Adult Immunizations up to date. - Social history:: Smoking status: Patient reports the use of cigarette tobacco products, smokes one pack cigarettes per day. ROS: 17:39 Constitutional: Negative for fever, chills, and weight loss, Eyes: Negative for injury, snw pain, redness, and discharge, ENT: Negative for injury, pain, and discharge, Neck: Negative for injury, pain, and swelling, Cardiovascular: Negative for chest pain, palpitations, and edema, Respiratory: Negative for shortness of breath, cough, wheezing, and pleuritic chest pain, Back: Negative for injury and pain, MS/Extremity: Negative for injury and deformity, Skin: Negative for injury, rash, and discoloration, Psych: Negative for depression, anxiety, suicide ideation, homicidal ideation, and hallucinations. 17:39 Abdomen/GI: Positive for abdominal pain, Negative for nausea, vomiting, and diarrhea, black/tarry stool, rectal pain, rectal bleeding. 17:39 : Positive for hematuria. 17:39 Neuro: Positive for headache. Exam: 17:38 Constitutional: This is a well developed, well nourished patient who is awake, alert, snw and in no acute distress. Head/Face: Normocephalic, atraumatic. 17:38 ENT: Nares patent. No nasal discharge, no septal abnormalities noted. Tympanic membranes are normal and external auditory canals are clear. Oropharynx with no redness, swelling, or masses, exudates, or evidence of obstruction, uvula midline. Mucous membranes moist. Neck: Trachea midline, no thyromegaly or masses palpated, and no cervical lymphadenopathy. Supple, full range of motion without nuchal rigidity, or vertebral point tenderness. No Meningismus. Chest/axilla: Normal chest wall appearance and motion. Nontender with no deformity. No lesions are appreciated. 17:38 Back: No spinal tenderness. No costovertebral tenderness. Full range of motion. Skin: Warm, dry with normal turgor. Normal color with no rashes, no lesions, and no evidence of cellulitis. MS/ Extremity: Pulses equal, no cyanosis. Neurovascular intact. Full, normal range of motion. Neuro: Awake and alert, GCS 15, oriented to person, place, time, and situation. Cranial nerves II-XII grossly intact. Motor strength 5/5 in all extremities. Sensory grossly intact. Cerebellar exam normal. Normal gait. Psych: Awake, alert, with orientation to person, place and time. Behavior, mood, and affect are within normal limits. 17:38 Eyes: Pupils: no acute changes, Extraocular movements: no acute changes, Conjunctiva: normal, Sclera: icterus, is present. 17:38 Cardiovascular: Rate: tachycardic, Rhythm: regular, Pulses: no pulse deficits are appreciated. 17:38 Respiratory: the patient does not display signs of respiratory distress, Respirations: normal, shallow respirations, that is moderate, Breath sounds: are clear throughout. 17:38 Abdomen/GI: Inspection: distension, that is mild, Bowel sounds: normal, Palpation: mild abdominal tenderness, in the umbilical area and suprapubic area. Vital Signs: 16:11 BP 98 / 63; Pulse 122; Resp 18; Temp 100.3(O); Pulse Ox 97% on R/A; Weight 92.53 kg; ss Height 5 ft. 6 in. (167.64 cm); Pain 8/10; 19:28 BP 88 / 60; Pulse 99; Resp 16; Pulse Ox 92% ; ah 20:45 BP 108 / 66; Pulse 94; Resp 16; Pulse Ox 99% ; ah 21:15 BP 90 / 61; Pulse 94; Resp 16; Pulse Ox 100% ; ah 21:45 BP 103 / 73; Pulse 90; Resp 17; Pulse Ox 100% ; ah 22:57 BP 107 / 78; Pulse 70; Resp 18; Temp 98.9; Pulse Ox 99% ; ea 16:11 Body Mass Index 32.93 (92.53 kg, 167.64 cm) ss Lizette Coma Score: 20:16 Eye Response: spontaneous(4). Verbal Response: oriented(5). Motor Response: obeys snw commands(6). Total: 15. MDM: 16:57 Patient medically screened. snw 20:16 Data reviewed: vital signs, nurses notes. Counseling: I had a detailed discussion with snw the patient and/or guardian regarding: the historical points, exam findings, and any diagnostic results supporting the discharge/admit diagnosis, lab results, radiology results, the need for further work-up and treatment in the hospital. Physician consultation: Evens Bell was called at 20:17, was contacted at 20:17, regarding admission, to the telemetry unit. 12/16 16:58 Order name: Urine Microscopic Only; Complete Time: 19:03 snw 12/16 17:08 Order name: Basic Metabolic Panel; Complete Time: 18:32 snw 12/16 17:08 Order name: CBC with Diff; Complete Time: 18:49 snw 12/16 17:08 Order name: Hepatic Function; Complete Time: 18:32 snw 12/16 17:08 Order name: Lipase; Complete Time: 18:32 snw 12/16 17:52 Order name: Urine Dipstick--Ancillary (enter results); Complete Time: 18:39 eb 12/16 18:19 Order name: Manual Differential; Complete Time: 18:49 EDMS 12/16 18:38 Order name: AMMONIA; Complete Time: 21:23 snw 12/16 18:38 Order name: Lactate; Complete Time: 19:56 snw 12/16 18:38 Order name: PT-INR; Complete Time: 19:34 snw 12/16 18:38 Order name: Ptt, Activated; Complete Time: 19:34 snw 12/16 18:38 Order name: Procalcitonin; Complete Time: 20:10 snw 12/16 18:38 Order name: Magnesium; Complete Time: 20:10 snw 12/16 18:56 Order name: Urine Culture EDMS 12/16 16:58 Order name: Urine Dipstick-Ancillary (obtain specimen); Complete Time: 18:18 snw 12/16 17:08 Order name: IV Saline Lock; Complete Time: 18:18 snw 12/16 17:08 Order name: Labs collected and sent; Complete Time: 18:18 snw 12/16 17:08 Order name: Chest Single View XRAY; Complete Time: 18:19 snw 12/16 18:40 Order name: Abdomen ; Complete Time: 20:51 EDMS 12/16 20:13 Order name: Vital Signs; Complete Time: 23:01 snw 12/16 20:37 Order name: Labs - recollect needed: please draw an ammonia, per LAB has not recieved; sg Complete Time: 22:55 12/16 23:01 Order name: Lactate Sepsis 2 HR Follow-up; Complete Time: 23:05 EDMS Administered Medications: 18:05 Drug: NS 0.9% 500 ml Route: IV; Rate: bolus; Site: left forearm; 19:05 Drug: Cipro 400 mg Volume: 200 ml; Route: IVPB; Infused Over: 60 mins; Site: left ah forearm; 19:27 Drug: NS 0.9% 1000 ml Route: IV; Rate: 1 bolus; Site: left forearm; 23:01 Follow up: IV Status: Completed infusion; IV Intake: 1000ml ea 20:50 Drug: NS 0.9% 1000 ml Route: IV; Rate: 1 bolus; Site: left forearm; 23:01 Follow up: IV Status: Completed infusion; IV Intake: 1000ml ea 20:50 Drug: Rocephin 2 grams Route: IV; Rate: calculated rate; Site: left forearm; 23:02 Follow up: Response: No adverse reaction; IV Status: Completed infusion ea Disposition: 12/17 07:22 Co-signature as Attending Physician, Dwight Evans MD I agree with the assessment and kdr plan of care. Disposition: 12/17/19 20:18 Hospitalization ordered by Evens Bell for Inpatient Admission. Preliminary diagnosis are Sepsis, unspecified organism, Urinary tract infection, site not specified. - Bed requested for Telemetry/MedSurg (Inpatient). - Status is Inpatient Admission. sg - Condition is Stable. - Problem is new. - Symptoms are unchanged. Signatures: Dispatcher [employer] EDNE Socrates Unger, RN CHAGO Dwight Evans MD MD [facility] Yusra Katz, SENIOR ORACLE DATABASE ADMINISTRATOR-C SENIOR ORACLE DATABASE ADMINISTRATOR-Csnw Madina Nicole RN RN Maria C Du RN RN Juliaan Conde RN RN ah Antunez, Elena RN ea Corrections: (The following items were deleted from the chart) 12/16 18:40 18:23 Abdomen Pelvis W Con+CT.RAD.BRZ ordered. EDMS EDMS 18:40 18:36 Abdomen Pelvis W Con+CT.RAD.BRZ ordered. EDNE EDMS 21:49 20:18 Hospitalization Ordered by Evens Bell for Inpatient Admission. Preliminary cg diagnosis is Sepsis, unspecified organism; Urinary tract infection, site not specified. Bed requested for Telemetry/MedSurg (Inpatient). Status is Inpatient Admission. Condition is Stable. Problem is new. Symptoms are unchanged. snw 23:41 21:49 12/17/2019 20:18 Hospitalization Ordered by Evens Bell for Inpatient sg Admission. Preliminary diagnosis is Sepsis, unspecified organism; Urinary tract infection, site not specified. Bed requested for Telemetry/MedSurg (Inpatient). Status is Inpatient Admission. Condition is Stable. Problem is new. Symptoms are unchanged. cg
[2019-12-17] MEDS ORDERED: CEFTRIAXONE/SWI 1gm 2 GM/20 ML SYR ONE (20:36)
--- NOTE | 2019-12-17 20:48 | RAD REPORT ---
EXAM DESCRIPTION: CT - Abdomen Pelvis Wo Contrast - 12/17/2019 8:25 pm CLINICAL HISTORY: Abdominal pain COMPARISON: 2017 TECHNIQUE: Computed axial tomography of the abdomen and pelvis was obtained. IV was not requested. O ral contrast was given. Coronal reconstructions performed. All CT scans are performed using dose optimization technique as appropriate and may include automated exposure control or mA/KV adjustment according to patient size. FINDINGS: The evaluation of solid organs and vessels is limited secondary to the lack of contrast a dministration. The liver, spleen, pancreas, adrenals and left kidney appear grossly normal. 3 centimeter right renal cyst. The appendix is normal. There is no evidence of diverticulitis. Prostate gland is moderately enlarged. Postsurgical changes involve pelvic bones. An umbilical hernia has a neck of 25 millimeters. It contains a small portion of nondilated bowel. IMPRESSION: Umbilical hernia.
--- NOTE | 2019-12-17 21:26 | P.HP ---
Certification for Inpatient Patient admitted to: Inpatient With expected LOS: >2 Midnights Practitioner: I am a practitioner with admitting privileges, knowledge of patient current condition, hospital course, and medical plan of care. Services: Services provided to patient in accordance with Admission requirements found in Title 42 Section 412.3 of the Code of Federal Regulations Patient History Date of Service: 12/17/19 Reason for admission: Hematuria History of Present Illness: 59-year-old gentleman with a history of untreated chronic hepatitis-C and BPH presented to the emergency department with a complaint hematuria, dysuria and hesitancy. Patient also reports bouts of fever and chills and general malaise. He also reports intermittent bilateral flank pain. Blood work in the ED shows severe leukocytosis. UA shows evidence of UTI. Patient was borderline hypotensive and was resuscitated normal saline bolus. His lactate also mildly elevated. Patient has sepsis and he is admitted for further management of urosepsis. Allergies No Known Allergies Allergy (Unverified 10/12/17 23:23) - Past Medical/Surgical History -: Chronic hepatitis-C -: BPH -: Diabetes - Family History Father -: Diabetes Brother -: Diabetes - Social History Smoking Status: Current every day smoker Alcohol use: No CD- Drugs: No Place of Residence: Home Review of Systems Other: Except as documented, all other systems reviewed and negative. Physical Examination - Physical Exam General: Alert, In no apparent distress, Oriented x3 HEENT: Normocephalic, PERRLA, Mucous membr. moist/pink, Sclerae nonicteric Neck: Supple, JVD not distended Respiratory: Clear to auscultation bilaterally, Normal air movement Cardiovascular: No edema, Regular rate/rhythm, Normal S1 S2, No murmurs Gastrointestinal: Normal bowel sounds, Soft and benign, No tenderness, Other (Bilateral flank tenderness) Integumentary: No rashes, No erythema Neurological: Normal strength at 5/5 x4 extr, Cranial nerves 3-12 intact - Studies Laboratory Data (last 24 hrs) 12/17/19 19:10: Magnesium 1.2 L* 12/17/19 19:10: PT 18.5 H, INR 1.58, APTT 32.7 12/17/19 17:43: WBC 22.6 H*, Hgb 15.4, Hct 46.5, Plt Count 139 L 12/17/19 17:43: Sodium 141, Potassium 3.3 L, BUN 18, Creatinine 1.97 H, Glucose 95, Total Bilirubin 1.3 H, AST 28, ALT 35, Alkaline Phosphatase 109, Lipase 75 Assessment and Plan - Problems (Diagnosis) (1) UTI (urinary tract infection) Current Visit: Yes Status: Acute (2) Hematuria Current Visit: Yes Status: Acute (3) Sepsis Current Visit: Yes Status: Acute (4) Diabetes mellitus type 2 in nonobese Current Visit: Yes Status: Acute (5) Acute renal failure Current Visit: Yes Status: Acute (6) Elevated bilirubin Current Visit: Yes Status: Acute (7) Hepatitis C Current Visit: Yes Status: Acute - Plan Admit to the medical floor. Sepsis protocol initiated. IV hydration with normal saline IV Rocephin and vancomycin. Follow urine culture and blood cultures. Insulin sliding scale for glucose management. Monitor CBC. Monitor electrolytes and renal function. - Advance Directives Does patient have a Living Will: No Does patient have a Durable POA for Healthcare: No
[2019-12-17] MEDS ORDERED: NA CHLORIDE 0.9% 500 ML IV ONE (23:51)
[2019-12-17] MEDS ORDERED: VANCOMYCIN 1 GM/VIAL IVPB ONE (23:51)
[2019-12-18] MEDS ORDERED: POTASSIUM CL SA 10 MEQ TAB PO ONE
[2019-12-18] MEDS ORDERED: Magnesium Sulfate 2gm IVPB 2 G/50 ML BAG IV ONE
[2019-12-18] MEDS: NS KCL 20MEQ 20 MEQ/1,000 ML BAG IV SCH ×4 (00:15→23:32)
[2019-12-18 00:47] VITALS: BMI 32.9
[2019-12-18] MEDS: VANCOMYCIN 1.5 GM in NA CHLORIDE 0.9% 500 ML IVPB SCH (01:00)
[2019-12-18] MEDS ORDERED: NA CHLORIDE 0.9% 500 ML ONE (01:52)
[2019-12-18] MEDS ORDERED: VANCOMYCIN 1 GM/VIAL ONE (01:55)
[2019-12-18] MEDS ORDERED: VANCOMYCIN 500 MG/VIAL ONE (01:56)
[2019-12-18] MEDS: INSULIN -REGULAR HUMAN 50 UNIT/0.5 ML ML SQ SCH ×4 (07:30→21:00)
[2019-12-18] MEDS ORDERED: POTASSIUM 25 MEQ EFFERV TAB PO ONE (08:04)
[2019-12-18] MEDS ORDERED: MAGNESIUM OXIDE 400 MG TAB PO ONE (08:04)
--- NOTE | 2019-12-18 08:13 | P.PN ---
Subjective Date of Service: 12/18/19 Chief Complaint: Hematuria Patient reports mild dysuria. He has no other complain. He has been afebrile. Physical Examination - Vital Signs Temperature: 97.6 F Blood Pressure: 97/60 Pulse: 89 Respirations: 16 Pulse Ox (%): 96 - Physical Exam General: Alert, In no apparent distress HEENT: Mucous membr. moist/pink, Sclerae nonicteric Respiratory: Clear to auscultation bilaterally, Normal air movement Cardiovascular: No edema, Regular rate/rhythm, Normal S1 S2 Gastrointestinal: Normal bowel sounds, Soft and benign, No tenderness Musculoskeletal: No swelling, No erythema Integumentary: No rashes Neurological: Normal strength at 5/5 x4 extr - Studies Laboratory Data (last 24 hrs) 12/17/19 19:10: Magnesium 1.2 L* 12/17/19 19:10: PT 18.5 H, INR 1.58, APTT 32.7 12/17/19 17:43: WBC 22.6 H*, Hgb 15.4, Hct 46.5, Plt Count 139 L 12/17/19 17:43: Sodium 141, Potassium 3.3 L, BUN 18, Creatinine 1.97 H, Glucose 95, Total Bilirubin 1.3 H, AST 28, ALT 35, Alkaline Phosphatase 109, Lipase 75 Assessment And Plan - Current Problems (Diagnosis) (1) UTI (urinary tract infection) Current Visit: Yes Status: Acute (2) Hematuria Current Visit: Yes Status: Acute (3) Sepsis Current Visit: Yes Status: Acute (4) Diabetes mellitus type 2 in nonobese Current Visit: Yes Status: Acute (5) Acute renal failure Current Visit: Yes Status: Acute (6) Elevated bilirubin Current Visit: Yes Status: Acute (7) Hepatitis C Current Visit: Yes Status: Acute - Plan Continue IV fluid Continue IV Rocephin and vancomycin. Follow urine culture and blood cultures. Insulin sliding scale for glucose management. Monitor CBC. Monitor electrolytes and renal function.
[2019-12-18 08:20] LABS: Absolute Lymphocytes (CBC) 3.4 K/uL (0.7-4.9); Basophils % 0.7 % (0-1.3); Hematocrit 40.8 % (39.6-49.0); Lymphocytes % 10.4 % (15.3-44.8); MPV 9.1 fL (7.6-11.3)
[2019-12-18 08:33] LABS: Albumin 2.7 g/dL (3.4-5.0); Bilirubin Total 0.8 mg/dL (0.2-1.0); Magnesium 2.3 mg/dL (1.8-2.4); Phosphorus 1.5 mg/dL (2.5-4.9); Potassium 4.2 mmol/L (3.5-5.1); Protein, Total 6.4 g/dL (6.4-8.2)
[2019-12-18 09:12] LABS: Blood Morphology Comment NOT SEEN (NOT SEEN); Platelet Estimate ADEQ
[2019-12-18] MEDS: ENOXAPARIN 40 MG/0.4 ML SQ SCH (09:55)
[2019-12-18 16:32] LABS: Magnesium 2.3 mg/dL (1.8-2.4); Potassium 4.4 mmol/L (3.5-5.1)
[2019-12-19] MEDS: VANCOMYCIN 1.5 GM in NA CHLORIDE 0.9% 500 ML IVPB SCH (00:45)
[2019-12-19] MEDS: NS KCL 20MEQ 20 MEQ/1,000 ML BAG IV SCH ×4 (05:46→23:50)
[2019-12-19 05:57] LABS: Basophils % 0.6 % (0-1.3); Hematocrit 41.8 % (39.6-49.0); MPV 9.3 fL (7.6-11.3); RBC Red Blood Cell Count 4.93 M/uL (4.33-5.43)
[2019-12-19 06:13] LABS: BUN Blood Urea Nitrogen 14 mg/dL (7-18); Bicarbonate 22 mmol/L (21-32); Glucose Level 87 mg/dL (74-106); Potassium 4.1 mmol/L (3.5-5.1); Sodium Level 143 mmol/L (136-145)
[2019-12-19] MEDS: POTASS/SODIUM PHOSPHATE 1 PKT POWD.PACK PO SCH ×3 (06:38→10:18)
[2019-12-19] MEDS: INSULIN -REGULAR HUMAN 50 UNIT/0.5 ML ML SQ SCH ×4 (07:30→21:00)
[2019-12-19] MEDS: ENOXAPARIN 40 MG/0.4 ML SQ SCH (08:21)
--- NOTE | 2019-12-19 08:47 | P.PN ---
Subjective Date of Service: 12/19/19 Chief Complaint: Hematuria Patient has no complain this morning. He stated he feels fine. He has severe leukocytosis. Urine culture is growing Gram negative rods. Physical Examination - Vital Signs Temperature: 98 F Blood Pressure: 124/77 Pulse: 78 Respirations: 18 Pulse Ox (%): 96 - Physical Exam General: Alert, In no apparent distress, Oriented x3 Neck: Supple, JVD not distended Respiratory: Clear to auscultation bilaterally, Normal air movement Cardiovascular: No edema, Regular rate/rhythm, Normal S1 S2 Gastrointestinal: Normal bowel sounds, Soft and benign, No tenderness Musculoskeletal: No swelling, No erythema, No tenderness Integumentary: No rashes Neurological: Normal strength at 5/5 x4 extr, Cranial nerves 3-12 intact Assessment And Plan - Current Problems (Diagnosis) (1) UTI (urinary tract infection) Current Visit: Yes Status: Acute (2) Hematuria Current Visit: Yes Status: Acute (3) Sepsis Current Visit: Yes Status: Acute (4) Diabetes mellitus type 2 in nonobese Current Visit: Yes Status: Acute (5) Acute renal failure Current Visit: Yes Status: Acute (6) Elevated bilirubin Current Visit: Yes Status: Acute (7) Hepatitis C Current Visit: Yes Status: Acute - Plan Continue IV fluid Continue IV Rocephin and vancomycin. Follow urine culture and blood cultures. Insulin sliding scale for glucose management. Monitor CBC. Monitor electrolytes and renal function.
[2019-12-19] MEDS: ACETAMINOPHEN 500 MG TAB PO PRN (17:47)
[2019-12-19] MEDS: CEFTRIAXONE/SWI 1gm 1 GM/10 ML SYR IV SCH (21:22)
[2019-12-20] MEDS: VANCOMYCIN 1.5 GM in NA CHLORIDE 0.9% 500 ML IVPB SCH (01:46)
[2019-12-20 06:07] LABS: Absolute Lymphocytes (CBC) 3.7 K/uL (0.7-4.9); Basophils % 0.9 % (0-1.3); Hematocrit 43.7 % (39.6-49.0); Lymphocytes % 27.7 % (15.3-44.8); MPV 8.6 fL (7.6-11.3); RBC Red Blood Cell Count 5.14 M/uL (4.33-5.43)
[2019-12-20 06:15] LABS: BUN Blood Urea Nitrogen 12 mg/dL (7-18); Bicarbonate 23 mmol/L (21-32); Glucose Level 107 mg/dL (74-106); Phosphorus 3.6 mg/dL (2.5-4.9); Sodium Level 141 mmol/L (136-145)
[2019-12-20] MEDS: INSULIN -REGULAR HUMAN 50 UNIT/0.5 ML ML SQ SCH ×4 (07:30→20:39)
[2019-12-20] MEDS: NS KCL 20MEQ 20 MEQ/1,000 ML BAG IV SCH (07:51)
--- NOTE | 2019-12-20 07:59 | P.PN ---
Subjective Date of Service: 12/20/19 Chief Complaint: Hematuria Patient has no complain this morning. Leukocytosis has trended down significantly Urine culture is growing E. coli. Physical Examination - Vital Signs Temperature: 97.2 F Blood Pressure: 117/74 Pulse: 70 Respirations: 18 Pulse Ox (%): 96 - Physical Exam General: Alert, In no apparent distress HEENT: Mucous membr. moist/pink, Sclerae nonicteric Neck: Supple Respiratory: Clear to auscultation bilaterally, Normal air movement Cardiovascular: No edema, Regular rate/rhythm, Normal S1 S2 Gastrointestinal: Normal bowel sounds, Soft and benign, Non-distended, No tenderness Musculoskeletal: No swelling, No erythema Integumentary: No rashes Neurological: Normal strength at 5/5 x4 extr, Cranial nerves 3-12 intact - Studies Microbiology Data (last 24 hrs): 12/17/19 17:47 Clean Catch Urine Tennyson Count - Final >100,000 CFU/ML. 12/17/19 17:47 Clean Catch Urine - Final Escherichia Coli Assessment And Plan - Current Problems (Diagnosis) (1) UTI (urinary tract infection) Current Visit: Yes Status: Acute (2) Hematuria Current Visit: Yes Status: Acute (3) Sepsis Current Visit: Yes Status: Acute (4) Diabetes mellitus type 2 in nonobese Current Visit: Yes Status: Acute (5) Acute renal failure Current Visit: Yes Status: Acute (6) Elevated bilirubin Current Visit: Yes Status: Acute (7) Hepatitis C Current Visit: Yes Status: Acute - Plan Acute renal failure resolved. Discontinue IV fluid. Discontinue vancomycin. Continue IV Rocephin. Blood culture result is pending. Infectious disease consult Insulin sliding scale for glucose management. Monitor CBC. Monitor electrolytes and renal function.
[2019-12-20] MEDS: ENOXAPARIN 40 MG/0.4 ML SQ SCH (08:50)
[2019-12-20] MEDS: ACETAMINOPHEN 500 MG TAB PO PRN ×2 (08:50→16:33)
[2019-12-20] MEDS: PANTOPRAZOLE 40MG TABLET PO SCH (12:21)
[2019-12-20] MEDS: CEFTRIAXONE/SWI 1gm 1 GM/10 ML SYR IV SCH (20:38)
[2019-12-21] MEDS: PANTOPRAZOLE 40MG TABLET PO SCH (06:10)
[2019-12-21 06:13] LABS: Potassium 3.8 mmol/L (3.5-5.1)
[2019-12-21 07:05] LABS: Absolute Lymphocytes (CBC) 3.7 K/uL (0.7-4.9); Basophils % 1.2 % (0-1.3); Lymphocytes % 22.2 % (15.3-44.8); RBC Red Blood Cell Count 5.86 M/uL (4.33-5.43)
[2019-12-21] MEDS: INSULIN -REGULAR HUMAN 50 UNIT/0.5 ML ML SQ SCH ×2 (07:30→11:30)
[2019-12-21 08:37] LABS: Blood Morphology Comment NOT SEEN (NOT SEEN); Platelet Estimate ADEQ; Platelets, Giant PRESENT
[2019-12-21] MEDS: ENOXAPARIN 40 MG/0.4 ML SQ SCH (08:56)
[2019-12-21] MEDS ORDERED: POTASSIUM 25 MEQ EFFERV TAB PO ONE (09:00)
[2019-12-21 09:53] VITALS: TEMP 97.3
[2019-12-21 10:45] VITALS: O2SAT 95
--- NOTE | 2019-12-21 13:28 | P.DS ---
Admission Date: 12/17/19 Discharge Date: 12/22/19 Disposition: ROUTINE DISCHARGE Discharge Condition: GOOD Reason for Admission: Hematuria Brief History of Present Illness: 59-year-old gentleman with a history of untreated chronic hepatitis-C and BPH presented to the emergency department with a complaint hematuria, dysuria and hesitancy. Patient also reports bouts of fever and chills and general malaise. He also reports intermittent bilateral flank pain. Blood work in the ED shows severe leukocytosis. UA shows evidence of UTI. Patient was borderline hypotensive and was resuscitated normal saline bolus. His lactate also mildly elevated. Patient has sepsis and he is admitted for further management of urosepsis. Hospital Course: (1) UTI (urinary tract infection) (2) Hematuria (3) Sepsis (4) Diabetes mellitus type 2 in nonobese (5) Acute renal failure (6) Elevated bilirubin (7) Hepatitis C Course The patient was admitted and was monitored closely under telemetry. Started on aggressive hydration and renal parameters were monitored. Kidney functions improved well. Start on IV antibiotics along with getting culture, urine culture was positive for E. coli and antibiotics were streamlined Insulin sliding scale for diabetes management was also start. Electrolytes were monitored and corrected, renal parameters improved well and the patient wanted go home and is being discharged home today in a stable condition with advice to follow up with PCP in 1 week and also with nephrology in 1-2 weeks Vital Signs/Physical Exam: Temp Pulse Resp BP Pulse Ox 97.3 F 81 16 107/80 94 12/21/19 08:00 12/21/19 08:00 12/21/19 08:00 12/21/19 08:00 12/21/19 08:00 General: Alert, In no apparent distress HEENT: Atraumatic, Normocephalic Neck: Supple Respiratory: Clear to auscultation bilaterally Cardiovascular: Normal pulses, Regular rate/rhythm Capillary refill: <2 Seconds Gastrointestinal: Soft and benign, W/out hepatosplenomegaly Musculoskeletal: No clubbing Integumentary: No rashes Neurological: Normal speech Lymphatics: No axilla or inguinal lymphadenopathy Laboratory Data at Discharge: WBC 16.5 K/uL (4.3-10.9) H D 12/21/19 06:49 Hgb 16.6 g/dL (13.6-17.9) 12/21/19 06:49 Hct 49.0 % (39.6-49.0) 12/21/19 06:49 Plt Count 221 K/uL (152-406) D 12/21/19 06:49 PT 18.5 SECONDS (9.5-12.5) H 12/17/19 19:10 INR 1.58 12/17/19 19:10 APTT 32.7 SECONDS (24.3-36.9) 12/17/19 19:10 Sodium 138 mmol/L (136-145) 12/21/19 05:19 Potassium 3.8 mmol/L (3.5-5.1) 12/21/19 05:19 BUN 15 mg/dL (7-18) 12/21/19 05:19 Creatinine 1.06 mg/dL (0.55-1.3) 12/21/19 05:19 Glucose 103 mg/dL (74-106) 12/21/19 05:19 Phosphorus 3.6 mg/dL (2.5-4.9) D 12/20/19 05:44 Magnesium 2.3 mg/dL (1.8-2.4) 12/18/19 16:12 Total Bilirubin 0.8 mg/dL (0.2-1.0) 12/18/19 08:00 AST 26 U/L (15-37) 12/18/19 08:00 ALT 26 U/L (12-78) 12/18/19 08:00 Alkaline Phosphatase 68 U/L (45-117) 12/18/19 08:00 Lipase 75 U/L (73-393) 12/17/19 17:43 Home Medications: Levofloxacin [Levaquin] 500 mg PO DAILY #7 tablet 12/21/19 Pantoprazole Sodium [Protonix] 40 mg PO DAILY #30 tablet. 12/21/19 New Medications: Levofloxacin [Levaquin] 500 mg PO DAILY #7 tablet Pantoprazole Sodium [Protonix] 40 mg PO DAILY #30 tablet. Time spent managing pt's care (in minutes): 40
[2019-12-21 13:50] VITALS: BP 121/72
== END 2019-12-21 14:52 | disposition home or self-care (01) | DRG 872 ==
LOC: ER 16:04 → ERHOLD 21:33 → 2ND 23:02
PROVIDERS: ADMIT Internal Medicine; ATTEND Family Medicine
DX: A41.9 Sepsis, unspecified organism (principal); N39.0 Urinary tract infection, site not specified; N17.9 Acute kidney failure, unspecified; E11.9 Type 2 diabetes mellitus without complications; R31.9 Hematuria, unspecified; B19.20 Unspecified viral hepatitis C without hepatic coma; J44.9 Chronic obstructive pulmonary disease, unspecified; F17.290 Nicotine dependence, other tobacco product, uncomplicated; B96.20 Unspecified Escherichia coli [E. coli] as the cause of diseases classified elsewhere; Z11.59 Encounter for screening for other viral diseases
CPT/HCPCS: 36415; 71045; 74176; 80048; 80053; 80076; 80202; 81003; 81015; 82140; 82947; 83605; 83690; 83735; 84100; 84132; 84145; 85025; 85610; 85730; 87040; 87077; 87086; 87088; 87186; 94760; 96361; 96365; 96366; 96375; 99285; J0696; J0744; J1650; J3370; J3475; J7030; J7040; U0002

== ENCOUNTER 2020-02-06 04:15 | Emergency (ER) | payer OTHER ==
--- OUTSIDE RECORDS SUMMARY | 2020-02-06 04:17 | XMS REPORT | Continuity of Care Document ---
:1960 Author Organization [employer] Care Team Providers Name Role Phone [employer] Unavailable Un available Problems Problem Status Onset Classification Date Comments Sourc e Date Reported LFLT TRANSFER Active 10/14/19 Miguelito as #[id number] [address] [place] [address] FX DISLOC OF PUBIC Active 10/13/19 M H [place] SYMPHYSIS [address] [place] [address] FALL FROM HORSE Active 10/13/19 [place] [address] [place] [address] Bleeding from nose Active Problem 12/09/2018 Medical [...] Group (disorder) Simple obesity Active Problem 12/09/2018 [facility] edical (disorder) Group Tobacco user Active Problem 12/09/2018 Med ical (finding) Group OTH FRACTURE OF Active [facility] [place]as UNSP PUBIS, INIT Med ical ENCNTR Center Medications Medication Details Route Status Patient Ordering Order Source Instructions Provider Date 200 ACTUAT 2 puff, Active 05/21/ Albuterol 0.09 INHALER, Q4H, 2018 Med ical MG/ACTUAT PRN wheezing, Group Metered Dose coughing, or Inhaler [ProAir shortness of HFA] breath, # 1 ea, 3 Refill(s), Pharmacy: [facility]/pharmacy #[id number] Ciprofloxacin 500 mg = 1 tab, No Longer 500 MG Oral PO, Q12H, 0 Active 2017 Medical Tablet [Cipro] Refill(s) Group Tamsulosin 0.4 mg = 1 cap, Active hydrochloride PO, Daily, 0 2018 Medic al 0.4 MG Oral Refill(s) Group Capsule [Flomax] Thyroxine Daily, 0 Active Refill(s) 2018 Medical Group sennosides, INTERMEDIATE 17.2 mg = 2 Active [place] 8.6 MG Oral tab, PO, 2018 Medical Tablet Bedtime, 0 Center Refill(s) enoxaparin 30 30 mg = 0.3 mL, Active [place] mg/0.3 mL SUB-Q, Q12H, X 2018 Medical subcutaneous 21 day, # 42 Center solution inj, 0 Refill(s), Pharmacy: [id number] methocarbamol 500 mg = 1 tab, Active [place] 500 mg oral PO, Q8H, X 5 2018 Medical tablet day, # 15 tab, Center 0 Refill(s), Pharmacy: [facility] [id number] cetirizine 5 mg 5 mg = 1 tab, Active [facility] oral tablet PO, Daily, 0 2018 Medical Refill(s) Center 24 HR Nicotine = 1 patch, TOP, Active H [place] 0.875 MG/HR Daily, X 7 day, 2018 Medi giselle Transdermal # 7 patch, 0 Center Patch [Nicoderm Refill(s), C-Q] Pharmacy: [facility] [id number] Acetaminophen 1 tab, PO, Q4H, Active [facility] 325 MG / PRN Pain Score 2018 Medical Hydrocodone 6-10, X 7 day, Cente r Bitartrate 5 MG # 15 tab, 0 Oral Tablet Refill(s), [[place] 5/325] given to patient naproxen 250 mg 250 mg = 1 tab, Active [facility] oral tablet PO, Q8H, PRN 2018 Medical Pain Score 4-6, Center X 5 day, # 20 tab, 0 Refill(s), Pharmacy: [facility] [id number] Zyrtec Notes: (Same No Longer [facility] As: Zyrtec) Active 2018 Medical Center Aleve Notes: (Same No Longer [facility] as: Naprosyn) Active 2018 Medical Take with food. Center Tylenol Notes: Max No Longer [facility] acetaminophen = Active 2018 Medical 4000mg/day (4 Center gm/day). (Same as: Tylenol) remove patch Notes: Remove No Longer [place] old patch Active 2018 [facility] application of new patch. WASTE: F/P - P Waste Black; E - P Waste Black pneumococcal Notes: (Same No Longer [place] capsular as: Pneumovax Active 2017 [facility] polysaccharide 23) Center type 1 vaccine / Refrigerate pneumococcal capsular polysaccharide type 10A vaccine / pneumococcal capsular polysaccharide type 11A vaccine / pneumococcal capsular polysaccharide type 12F vaccine / pneumococcal capsular polysacchar Cefazolin Notes: (Same as No Longer [facility] [place] Ancef) Active 2018 Medical Center sennosides, INTERMEDIATE Notes: (Same No Longer [facility] as: Senokot) Active 2018 [facility] Labetalol 10 mg, 2 mL, [place] Long[place] Route: IVP, Active 2017 Medical Drug form: INJ, [place] Q15Min, Dosing Weight 91.818, kg, PRN Hypertension, Start date: 10/13/17 16:15:00 CDT, Duration: 3 doses or times, Stop date: 11/13/17 0:00:00 CDT sugammadex Notes: (Same No Longer Miguelito as as: [place]) Active 2018 [facility] niCARdipine Route: IV, Drug Inactive [facility] (ANES) form: INJ, 2017 Medical ONCE, Stop Center date: 10/13/17 14:57:00 CDT acetaminophen Route: IV, Drug Inactive [facility] (ANES) form: INJ, 2017 Medical ONCE, Stop Center date: 10/13/17 14:57:00 CDT metoprolol Route: IV, Drug Inactive [place] (ANES) form: INJ, 2017 Medical ONCE, Stop Center date: 10/13/17 14:47:00 CDT dexamethasone Route: IV, Drug Inactive [facility] (ANES) form: INJ, 2017 Medical ONCE, Stop Center date: 10/13/17 14:37:00 CDT fentaNYL (ANES) Route: IV, Drug Inactive [facility] form: INJ, 2017 Medical ONCE, Stop Center date: 10/13/17 14:37:00 CDT propofol (ANES) Route: IV, Drug Inactive [place] form: INJ, 2018 Medical ONCE, Stop Center [...] Longer Miguelito as as: Lovenox) Active 2018 [facility] Center Nicotine Notes: (Same No [...] No Longer [place] 325 MG / as: [place] Active 2018 Medical Hydrocodone 325/5) Do not Cente r Bitartrate 5 MG exceed 4gm/day Oral Tablet of [[place] 5/325] acetaminophen. ketOROLAC 4 days No Longer Miguelito as MEDICATION Active 2018 Medical WASTE Center Product Size: 30 mg Product Wasted: _0__ mg Acetaminophen Notes: Max No Longer [facility] [place] acetaminophen Active 2017 Medical 4000 mg/day (4 Center gm/day). (Same as: Tylenol Extra Strength) Ondansetron Notes: (Same No Longer [place] as: Zofran) Active 2018 Medical MEDICATION Center WASTE Product Size: 4 mg Product Wasted: 0__ mg Saline Flush Notes: Same as: No Longer [facility] 0.9% BD Posiflush Active 2017 [facility] Sterile Center Calcium Chloride 1,000 mL, 2,000 Inactive [place] 0.0014 MEQ/ML / ml/hr, Route: 2018 Ut dical Potassium IV, ONCE, Center Chloride 0.004 Priority: STAT, MEQ/ML / Sodium Dosing Weight Chloride 0.103 91.818 kg, MEQ/ML / Sodium Start date: Lactate 0.028 10/12/17 MEQ/ML 23:56:00 CDT, Injectable Stop date: Solution 10/12/17 23:56:00 CDT Isolyte S PH 7.4 Notes: (Same No Longer [facility] 1,000 mL as: Isolyte S Active 2017 [facility] PH 7.4) Center Allergies, Adverse Reactions, Alerts Substance Category Reaction Severity Reaction Status Date Comments S ource type Reported No Known Assertion Drug Medication allergy Medic al Allergies Group Immunizations Immunization Date Given Site Status Last Updated Comments Edda rce influenza virus 04/15/2018 completed [facility] Medical vaccine, History: Group inactivated<sup>1 Civic </sup> [facility] Results Order Name Results Value Reference Date Interpretation Comments Edda rce Range HEMATOLOGY Eosinophils # 0.2 0.0 - 0.5 10/15 [place] /2017 [facility] HEMATOLOGY Eosinophils 1.3 0.0 - 4.0 10/15 [place] /2017 [facility] HEMATOLOGY Lymphocytes 24.7 20.0 - 10/15 [place] 40.0 [facility] HEMATOLOGY Monocytes 10.0 2.0 - 12.0 10/15 [facility] HEMATOLOGY Lymphocytes # 3.6 1.0 - 5.5 10/15 [place] [facility] HEMATOLOGY Monocytes # 1.5 0.0 - 0.8 10/15 s [facility] HEMATOLOGY Segs 63.3 45.0 - 10/15 [place] 75.0 [facility] HEMATOLOGY Basophils 0.7 0.0 - 1.0 10/15 [facility] HEMATOLOGY Segs-Bands # 9.2 1.5 - 8.1 10/15 [facility] HEMATOLOGY Basophils # 0.1 0.0 - 0.2 10/15 s [facility] HEMATOLOGY Hgb 13.0 14.0 - 10/15 18.0 [facility] HEMATOLOGY MCV 85.8 80.0 - 10/15 [place] 94.0 [facility] HEMATOLOGY MCH 28.6 27.0 - 10/15 [place] 31.0 [facility] HEMATOLOGY Hct 38.9 42.0 - 10/15 [place] 54.0 [facility] HEMATOLOGY MCHC 33.3 32.0 - 10/15 [place] 36.0 [facility] HEMATOLOGY RDW 13.6 11.5 - 10/15 [place] 14.5 [facility] HEMATOLOGY Platelet 188 133 - 450 10/15 [facility] HEMATOLOGY MPV 8.9 7.4 - 10.4 10/15 [facility] HEMATOLOGY RBC 4.53 4.70 - 10/15 [place] 6.10 [facility] HEMATOLOGY WBC 14.6 3.7 - 10.4 10/15 [facility] SPECIAL Hgb A1C 6.1 <=5.6 % 10/15 [facility] CHEMISTRY [facility] URINE AND UA Mucus Few /LPF None Seen 10/14 [facility] STOOL /LPF /[address] [place] [address] URINE AND UA Bacteria Occasional None Seen 10/14 [place] STOOL /HPF /HPF /2017 [facility] URINE AND UA WBC 6 0 - 5 10/14 [facility] STOOL [facility] URINE AND UA Sq Epi Occasional Few /LPF 10/14 [facility] /LPF /2017 [facility] URINE AND UA RBC 3 0 - 2 10/14 [facility] /2017 [facility] URINE AND UA Bili Negative Negative 10/14 [facility] *NA* /2017 [facility] (10/14/17 1:29 PM) [place] URINE AND UA Ketones Negative Negative 10/14 [facility] mg/dL mg/dL [facility] URINE AND UA Protein 10 mg/dL Negative 10/14 [facility] mg/dL [facility] URINE AND UA Glucose Negative Negative 10/14 [facility] mg/dL mg/dL /2017 [facility] URINE AND UA Color Yellow Yellow 10/14 [facility] *NA* /2017 [facility] (10/14/17 1:29 PM) [place] URINE AND UA Leuk Est Negative Negative 10/14 [facility] (10/14/17 1:29 PM) [facility] URINE AND UA Blood Negative Negative 10/14 [facility] (10/14/17 1:29 PM) [facility] URINE AND UA Nitrite Negative Negative 10/14 [facility] (10/14/17 1:29 PM) [facility] URINE AND UA 4.0 0.1 - 1.0 10/14 [facility] Urobilinogen /2017 [facility] URINE AND UA Turbidity Clear Clear 10/14 [facility] (10/14/17 1:29 PM) [facility] URINE AND UA pH 6.5 5.0 - 8.0 10/14 [facility] [address] [place] [address] URINE AND UA Spec Grav 1.023 <=1.030 10/14 [facility] CHEM PANEL B/C Ratio 13 6 - 25 10/14 [facility] CHEM PANEL Globulin 4.1 2.7 - 4.2 10/14 [facility] CHEM PANEL AGAP 13.2 10.0 - 10/14 [facility] 20.0 [facility] CHEM PANEL A/G Ratio 0.8 0.7 - 1.6 10/[address] CHEM PANEL eGFR 96 10/14 Result [facility] Comment: The Medical eGFR is Center [...] Bili Total 0.6 0.2 - 1.3 10/[address] CHEM PANEL Alk Phos 78 39 - 136 10/[address] CHEM PANEL Calcium Lvl 8.4 8.5 - 10.5 10/[address] CHEM PANEL Albumin Lvl 3.1 3.5 - 5.0 10/[address] CHEM PANEL Total Protein 7.2 6.4 - 8.4 10/[address] CHEM PANEL AST 38 0 - 37 10/[address] CHEM PANEL ALT 37 0 - 65 10/[address] CHEM PANEL Glucose Lvl 148 70 - 99 10/[address] CHEM PANEL CO2 25 24 - 32 10/[address] CHEM PANEL Sodium Lvl 141 135 - 145 10/[address] CHEM PANEL Creatinine 0.99 0.50 - 10/14 [facility] Lvl 1.40 [facility] CHEM PANEL BUN 13 7 - 22 10/[address] CHEM PANEL Potassium Lvl 4.2 3.5 - 5.1 10/[address] CHEM PANEL Chloride Lvl 107 95 - 109 10/14 [facility]2017 [facility] HEMATOLOGY Platelet 204 133 - 450 10/[address] HEMATOLOGY RDW 13.9 11.5 - 10/14 [facility] 14.5 [facility] HEMATOLOGY WBC 16.0 3.7 - 10.4 10/[address] HEMATOLOGY Hct 41.0 42.0 - 10/14 [place] 54.0 [facility] HEMATOLOGY Hgb 13.7 14.0 - 10/14 18.0 [facility] HEMATOLOGY RBC 4.78 4.70 - 10/14 6.10 [facility] HEMATOLOGY MCHC 33.5 32.0 - 10/14 36.0 [facility] HEMATOLOGY MCH 28.7 27.0 - 10/14 31.0 [facility] HEMATOLOGY MCV 85.7 80.0 - 10/14 94.0 [facility] HEMATOLOGY MPV 8.8 7.4 - 10.4 10/14 [facility] HEMATOLOGY Lymphocytes # 2.1 1.0 - 5.5 10/14 [place] [facility] HEMATOLOGY Monocytes # 1.9 0.0 - 0.8 10/14 a s [facility] HEMATOLOGY Segs 75.2 45.0 - 10/14 75.0 [facility] HEMATOLOGY Segs-Bands # 12.0 1.5 - 8.1 10/14 [facility] HEMATOLOGY Basophils 0.2 0.0 - 1.0 10/14 [facility] HEMATOLOGY Monocytes 11.8 2.0 - 12.0 10/14 [facility] HEMATOLOGY Lymphocytes 12.8 20.0 - 10/14 40.0 [facility] CARDIAC Troponin-I <0.02 0.00 - 10/13 [place] ENZYMES 0.40 [facility] HEMATOLOGY Hgb 14.3 14.0 - 10/13 18.0 [facility] HEMATOLOGY Hct 42.4 42.0 - 10/13 54.0 [facility] HEMATOLOGY K-time Rapid 2.1 0.6 - 2.3 10/13 [facility] HEMATOLOGY R-time Rapid 0.6 0.4 - 0.7 10/13 [facility] HEMATOLOGY [place] 0.5 10/13 [facility] HEMATOLOGY ACT (TEG) 105 86 - 118 10/13 [facility] HEMATOLOGY Estimated % 1.3 0.0 - 7.5 10/13 [place] L[place] [facility] HEMATOLOGY G-value Rapid 6.6 5.0 - 11.6 10/13 [place] [facility] HEMATOLOGY Max Amplitude 57 52 - 71 10/13 [place] Rapid [facility] HEMATOLOGY Angle Rapid 68 64 - 80 10/13 [facility] BLOOD BANK Antibody Scrn Negative 10/13 Miguelito as RESULTS (10/12/17 11:58 PM) /2017 [facility] BLOOD BANK ABO/Rh B POS 10/13 [facility] RESULTS [facility] CHEM PANEL Lactic Acid 1.6 0.5 - 2.2 10/13 [place] Lvl /2017 [facility] ELECTROLYTE AGAP 11.0 10.0 - 10/13 [place] S 20.0 [facility] ELECTROLYTE Glucose Lvl 122 70 - 99 10/13 [facility] S [facility] ELECTROLYTE eGFR 91 10/13 Result [facility] Comment: The Medical eGFR is Center [...] ELECTROLYTE BUN 9 7 - 22 10/13 [facility] S [facility] ELECTROLYTE Creatinine 1.03 0.50 - 10/13 [facility] S Lvl 1.40 [facility] ELECTROLYTE Sodium Lvl 139 135 - 145 10/13 [place] S [facility] ELECTROLYTE Potassium Lvl 4.0 3.5 - 5.1 10/13 [place] S [facility] ELECTROLYTE Chloride Lvl 106 95 - 109 10/13 Miguelito as S [facility] ELECTROLYTE CO2 26 24 - 32 10/13 [place] S /2017 [facility] ELECTROLYTE Calcium Lvl 8.7 8.5 - 10.5 10/13 [place] S [facility] HEMATOLOGY MPV 8.8 7.4 - 10.4 10/13 [facility] HEMATOLOGY Platelet 190 133 - 450 10/13 [facility] HEMATOLOGY MCH 28.5 27.0 - 10/13 31.0 [facility] HEMATOLOGY MCV 86.1 80.0 - 10/13 94.0 [facility] HEMATOLOGY MCHC 33.1 32.0 - 10/13 [place] 36.0 [facility] HEMATOLOGY RDW 13.6 11.5 - 10/13 [place] 14.5 [facility] HEMATOLOGY RBC 5.35 4.70 - 10/13 [place] 6.10 [facility] HEMATOLOGY WBC 16.9 3.7 - 10.4 10/13 [facility] HEMATOLOGY Plt Morph Normal 10/13 [facility] (10/12/17 11:58 PM) [facility] HEMATOLOGY Segs 78.1 45.0 - 10/13 [place] 75.0 [facility] HEMATOLOGY RBC Morph Normal 10/13 [facility] (10/12/17 11:58 PM) [facility] HEMATOLOGY Segs-Bands # 13.2 1.5 - 8.1 10/13 [facility] HEMATOLOGY Lymphocytes # 2.1 1.0 - 5.5 10/13 [place] [facility] HEMATOLOGY Basophils # 0.1 0.0 - 0.2 10/13 [facility] HEMATOLOGY Monocytes # 1.5 0.0 - 0.8 10/13 [facility] HEMATOLOGY Basophils 0.5 0.0 - 1.0 10/13 [facility] HEMATOLOGY Monocytes 9.1 2.0 - 12.0 10/13 [facility] HEMATOLOGY Eosinophils 0.1 0.0 - 4.0 10/13 a [facility] HEMATOLOGY Lymphocytes 12.2 20.0 - 10/13 [place] 40.0 [facility] Pathology Reports No Data Provided for This Section Diagnostic Reports Report Value Date Source Chest 2 views DX Clinical Indication: - HEMOPTYSIS. Cough. 04/26 [facility] Comparison: 10/12/2017. TECHNIQUE: PA and lateral chest [...] IMPRESSION: 1. No acute cardiopulmonary disease. SL: [id number] Pelvis wo IV EXAM: CT PELVIS WITHOUT CONTRAST 10/13/2017 [facility] [place] [facility] contrast/w 3D CT DATE: 10/13/2017 at 1906 [...] DX EXAM: XR PELVIS 1 VIEW 10/13/2017 [facility] [place] [facility] DATE: 10/13/2017 2:19 AM CDT Cent er [...] IV EXAM: CT PELVIS WITHOUT CONTRAST 10/13/2017 [facility] [place] [facility] contrast/w 3D CT DATE: 10/13/2017 12:51 AM [...] EXAM: CT CERVICAL SPINE WITHOUT CONTRAST 018 [facility] CT DATE: 10/13/2017 12:[address] INDICATION: Trauma, second interpretation reques addie ADDITIONAL INFORMATION: '57 yr M via LF, transfer from [place], s/p fall from horse. 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 ADDITIONAL INFORMATION: '57 yr M via LF, transfer from [place], s/p fall from horse. 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 TECHNIQUE: Formal interpreta tion of a CT examination of the brain performed at an outside institution is requested after patient transfer for a higher level of care. The study was performed at [facility] amp;[facility] October 12, 2017 10:44 PM.The exam [...] AP DX XR PELVIS 1 VIEW 10/12/2017 [facility] [place] [facility] DATE: 10/12/2017 11:[address] INDICATION: Fall - Fall ADDITIONAL HISTORY: '57 yr M via LF, transfer from [facility], s/p fall from horse. 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[place].' COMPARISON: Chest [...] Medi giselle Group Respitory Rate 18 10/15/2017 [facility] [place] [facility] Temperature Oral (F) 98.8 F 10/15/2017 [facility] Systolic (mm Hg) 118 10/15/2017 [facility] [place] [facility] Diastolic (mm Hg) 82 10/15/2017 [facility] Heart Rate 96 10/15/2017 [facility] Respitory Rate 20 10/15/2017 [facility] [place] [facility] Systolic (mm Hg) 120 10/15/2017 [facility] dical [place] Diastolic (mm Hg) 80 10/15/2017 [facility] Heart Rate 96 10/15/2017 [facility] Temperature Oral (F) 98.7 F 10/15/2017 [facility] Temperature Oral (F) 98.6 F 10/15/2017 [facility] Systolic (mm Hg) 117 10/15/2017 [facility] dical [place] Diastolic (mm Hg) 85 10/15/2017 [facility] Respitory Rate 18 10/15/2017 [facility] [place] [facility] Heart Rate 91 10/15/2017 [facility] BMI Calculated 32.67 10/13/2017 [facility] [place] [facility] Weight 91.818 10/13/2017 [facility] Height 167.64 cm 10/13/2017 [facility] Weight 91.818 10/13/2017 [facility] Encounters Location Location Encounter Encounter Reason Attending ADM ME Stat us Source Details Type Number For Provider Date Date Visit [facility] Inpatient [id number] Nooreen 10/13 10/15 [facility] [place] 7 [facility] Outpatient [id number] SREEKRISHNA 05/12 [facility] 0 [facility] Outpatient [id number] Sreekrishna 05/12 05/13 [facility] 0 Done Med ical ogy [facility] [place] [facility] Outpatient [id number] SREEKRISHNA 05/14 [facility] 1 DONE [facility] Ambulatory [id number] Sreekrishna 05/14 05/14 Otolaryngol Pre-Reg 1 Me dical ogy [facility] [place] [facility] Outpatient [id number] YULI 05/15 [facility] 2 [place] Outpatient [id number] XRAY VISIT 05/15 [facility] Outpatient [id number] XRAY VISIT 05/15 [facility] Family Outpatient [id number] Yuli 05/15 05/16 Medicine 2 Medical [place] [facility] Ambulatory [id number] NURSE VISIT 05/15 05/15 Radiology Pre-Reg Medica l [facility] Family Outpatient [id number] Yuli 05/15 05/16 Medicine 4 Medical [facility] Outpatient [id number] L RADHA 05/21 [facility] 6 [facility] Outpatient [id number] L Radha 05/21 05/22 [facility] Pulmonology 6 Medic al [facility] Outpatient [id number] L RADHA 05/22 Active [facility] 5 [facility] Ambulatory [id number] L Radha 05/22 05/22 M H Pulmonology Pre-Reg Medi giselle [facility] [place] [facility] Procedures Procedure Code Date Perfomer Comments Source Control nasal [id number] 05/12/2018 Medical hemorrhage, Group anterior, simple (limited cautery and/or packing) any method Procedure on [id number] Fractured Medical pelvic pelvis. Group region<sup>1</chu p> Assessment and Plan Assessment and Plan Date Source Extracted from:Title: Clinical Document 10/15/2017 [facility] Author: Hiral Edwards MD Date: 10/15/17 Orthopaedic [...] Hiral Edwards MD Orthopaedic Trauma Fellow p [phone] c [phone] Extracted from:Title: History and Physical Author: Kavita [...] 9 a day Social History TypeResponse 10/13/2017 [facility] Smoking Status Current every day smoker; Type: [...]
--- OUTSIDE RECORDS SUMMARY | 2020-02-06 04:20 | XMS REPORT | Encounter Summary ---
:1960 Author Reason for Visit ER follow-up Instructions 1. Smoker nicotine 21 mg/24 hr daily transdermal patch advised to quit smoking learning about benefits fr om quitting smoking 2. Venereal disease screening CT + NG + TV, DNA, urine/s wab RPR (rapid plasma reagin), serum 3. Prediabetes HbA1c (hemoglobin A1c), bl ood CMP, serum or plasma 4. Essential hypertension urinalysis, complete TSH + free T4, serum CBC w/ auto diff lisinopril 2.5 mg tablet 5. Body mass index 30+ - obesity lipid panel, serum learning about physical ac tivity walking for exercise: care instructions increase exercise 6. Immunization Adacel (Tdap Adolesn/Adult )(PF)2 Lf-(2.5-5-3-5)-5 Lf/0.5 mL IM syringe Prevnar 13 (PF) 0.5 mL int ramuscular syringe Discussion Note: None recorded. Plan of Care Reminders Provider Appointments Est Pt May[place] 02/11/2020 DEAN Hopson 1:30PM Lab CT + NG + [facility] TV, DNA, Urine/swab 01/13/2020 RPR (Rapid [facility] Plasma Reagin), Serum 01/13/2020 HbA1C [facility] (Hemoglobin a1C), 01/13/2020 Blood CMP, Serum [facility] or Plasma 01/13/2020 Urinalysis, [facility] Complete 01/13/2020 TSH + Free [facility] T4, Serum 01/13/2020 CBC W/ Auto [facility] Diff 01/13/2020 Lipid Panel, [facility] Serum 01/13/2020 Referral None recorded. Procedures None recorded. Surgeries None recorded. Imaging None recorded. Medications Name Start Date lisinopril 2.5 mg tablet Take 1 tablet every day by oral route for 30 days. metformin 500 mg tablet Take 1 tablet twice a day by oral route for 30 days. nicotine 21 mg/24 hr daily transdermal patch Apply 1 patch every day by transdermal route for 45 d ays. pantoprazole 40 mg tablet,delayed release TAKE 1 TABLET BY MOUTH EVERY DAY Medications Administered None recorded. Vitals Height Weight BMI Blood Pressure 5 ft 6 in 192 lbs 31 kg/m2 129/90 mm[Hg] Results Lab Results None recorded. Allergies Code Code System Name Reaction Severity Status Onset NKDA Problems Name Status Onset Date Source Smoker Active 03/31/2019 Viral Hepatitis C Active 04/05/2019 Vitamin D Deficiency Active 04/05/2019 Prediabetes Active 04/05/2019 Herpesvirus Infection Active 04/07/2019 Procedures Date Name Performed by 09/23/2017 Pelvis/hip Joint Surgery Information not available Orthopedic Surgery Information not avai lable Vaccine List Vaccine Type pneumococcal conjugate PCV 13 .5 mcg pneumococcal polysaccharide PPV23 10/14/2017 Tdap .5 mcg Social History Tobacco Smoking Status Heavy Tobacco Smoker (1 PPD) Past Encounters 01/13/2020 Smoker; Venereal Disease Screening; Pred iabetes; Essential Hypertension; Body Mass Index 30+ - Obesity; Immunization Mayito Hopson, [employer]: [address], [place] [address], Ph. History of Present Illness Note: <p>er follow up for uti and sepsis for 5 days . requesting for std.</p> Review of Systems None recorded. Physical Exam General Adult Exam Reported By: Patient Constitutional: General Appearance: healthy- appearing, obese. Level of Distress: NAD. Ambulation: ambulating normally Head: Head: normocephalic Eyes: Lids and Conjunctivae: non-i njected, no discharge. Pupils: PERRLA Neck: Neck: supple, trachea midlin e, no masses. Lymph Nodes: no cervical LAD, no supraclavicular LAD. Thyroid: no enlargement, non-tender, no nodules Lungs: Respiratory effort: no dyspn ea. Auscultation: breath sounds normal, good air movement, no wheezi ng, no rales/crackles, no rhonchi Cardiovascular: Heart Auscultation: RRR, nor mal S1, normal S2, no murmurs, no rubs Musculoskeletal:: Motor Strength and Tone: nor mal motor strength, normal tone. Joints, Bones, and Muscles: normal movement of all extremities, no bony abnormalities Neurologic: Gait and Station: normal gai t, normal station. Reflexes: DTRs 2+ bilaterally throughout. Coor dination and Cerebellum: [id number] intact, no tremor Skin: Inspection and palpation: no rash, no lesions, no ulcer
--- OUTSIDE RECORDS SUMMARY | 2020-02-06 04:20 | XMS REPORT | Continuity of Care Document ---
:1960 Author Organization [facility] t Address [address] [place] [address] Care Team Providers Name Role Phone Mazeearlene Attending Clinician Josh Llanos Attending Clinician VISIT, STLARISA FRANCO Attending Clinician Unavailable Christos Crouch Attending Clinician GREGG Attending Clinician Unavailable Trinidad Turner Attending Clinician Michael Admitting Clinician Problems Condition Condition Condition Status Onset Resolution Last Treating Co mments Source Name Details Category Date Date Treatment Clinician Date Herpesviru Herpesviru Problem Active 2018-05 M moraima s s - da infection 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 [facility] Viral Viral Problem Active 2018-05 [place] hepatitis Hepatitis 06-05 da C C 00:00: [facility] Vitamin D Vitamin D Problem Active 2018-05 [place] deficiency Deficiency 06-05 da 00:00: [facility] Prediabete Prediabete Problem Active 2018-05 M [place] s s 06-05 da 00:00: [facility] Smoker Smoker Problem Active 2018-05 [place] -06 da 00:00: [facility] LFLT Diagnosis Active 2017-10-13 Mem oria TRANSFER 10-13 00:53:00 l #[id number] LFLT 00:00: [place] TRANSFER 00 #[id number] Active 10/13/2017 [facility] FX DISLOC Diagnosis Active 2017-10-27 Memoria OF PUBIC 10-12 21:50:00 l SYMPHYSIS FX 21:20: Claudio DISLOC OF 00 PUBIC SYMPHYSIS Active 10/12/2017 [facility] FALL FROM Diagnosis Active 2017-2017-10-13 Memoria HORSE 5-20 00:24:00 l FALL 21:20: Claudio FROM HORSE 00 Active 10/12/2017 [facility] Complete Complete Problem Active Unive rs disruption disruption it y of of pelvic [place] ring ring Physici ans Symphysis Symphysis Problem Active Uni vers pubis pubis [place] [facility] Bleeding Problem Active 2018-12-09 Mem oria from nose 14:20:31 l (finding) Bleeding Her benito from nose (finding) Active Problem 12/09/2018 [facility] Central Problem Active 2018-12-09 Rob harsha hypothyroi 14:20:31 l dism Central Claudio (disorder) hypothyroi dism (disorder) Active Problem 12/09/2018 [facility] Finding of Problem Active 2018-12-09 M emoria body mass 14:20:31 l index Finding Claudio (finding) of body mass index (finding) Active Problem 12/09/2018 [facility] Frequent Problem Active 2018-12-09 Mem oria headache 14:20:31 l (finding) Frequent Her benito headache (finding) Active Problem 12/09/2018 [facility] Hemoptysis Problem Active 2018-12-09 M emoria (finding) 14:20:31 l [place] Hemoptysis (finding) Active Problem 12/09/2018 [facility] Hyperglyce Problem Active 2018-12-09 M emoria kenyetta 14:20:31 l (disorder) [place] Hyperglyce kenyetta (disorder) Active Problem 12/09/2018 [facility] Patient Problem Active 2018-12-09 Rob harsha encounter 14:20:31 l status Patient [place] (finding) encounter status (finding) Active Problem 12/09/2018 [facility] Pulmonary Problem Active 2018-12-09 Me moria emphysema 14:20:31 l (disorder) [place] Pulmonary emphysema (disorder) Active Problem 12/09/2018 [facility] Simple Problem Active 2018-12-09 Memor ia obesity 14:20:31 l (disorder) Simple Herm miriam obesity (disorder) Active Problem 12/09/2018 [facility] Tobacco Problem Active 2018-12-09 Rob harsha user 14:20:31 l (finding) Tobacco Herm miriam user (finding) Active Problem 12/09/2018 [facility] OTH Diagnosis Active 2017-10-27 Mem oria FRACTURE 21:50:00 l OF UNSP OTH Claudio PUBIS, FRACTURE INIT OF UNS ENCNTR PUBIS, INIT ENCNTR Active [facility] Allergies, Adverse Reactions, Alerts Allergy Allergy Status Severity Reaction(s) Onset Inactive Treating Comm ents Source Name Type Date Date Clinician No Known No Known Active Memori a Medicati Medicati l on on [place] Allergie Allergie s s Social History Social Habit Start Date Stop Date Quantity Comments Source Social History 2018-05-15 2018-05-15 [facility] Blaine serrano 16:11:09 16:11:09 Smoking Status Start Date Stop Date Source Heavy Tobacco Smoker Adriana miller [employer] [facility] Social History 2017-10-13 23:25:24 [facility] Her benito Medications Ordered Filled Start Stop Current Ordering Indication Dosage Frequency Signature Comments Components Source Medication Medication Date Date Medication? Clinician (SIG) Name Name 200 ACTUAT 2017-05 Yes 2 puff, Rob harsha Albuterol 2-27 INHALER, l 0.09 21:44: Q4H, PRN Claudio MG/ACTUAT 00 wheezing, Metered coughing, Dose or Inhaler shortness [ProAir of breath, HFA] # 1 ea, 3 Refill(s), Pharmacy: [id number] Ciprofloxac 2017-05 No 500 mg = 1 Memoria in 500 MG 2-18 tab, PO, l Oral Tablet 19:21: Q12H, 0 Her benito [Cipro] 00 Refill(s) Tamsulosin 2017-05 Yes 0.4 mg = 1 M emoria hydrochlori 2-18 cap, PO, l de 0.4 MG 19:21: Daily, 0 Herm miriam Oral 00 Refill(s) Capsule [Flomax] Thyroxine 2017-05 Yes Daily, 0 Rob harsha 2-18 Refill(s) l 19:21: Claudio 00 sennosides, Yes 17.2 mg = M emoria CARE HOME 8.6 MG 5-23 2 tab, PO, l Oral Tablet 19:00: Bedtime, 0 Claudio 00 Refill(s) enoxaparin Yes 30 mg = Rob harsha 30 mg/0.3 5-23 0.3 mL, l mL 19:00: SUB-Q, [place] subcutaneou 00 Q12H, X 21 s solution day, # 42 inj, 0 Refill(s), Pharmacy: [facility] methocarbam Yes 500 mg = 1 Memoria ol 500 mg 5-23 tab, PO, l oral tablet 19:00: Q8H, X 5 He rmann 00 day, # 15 tab, 0 Refill(s), Pharmacy: [facility] cetirizine Yes 5 mg = 1 Mem oria 5 mg oral 5-23 tab, PO, l tablet 19:00: Daily, 0 [place] Refill(s) 24 HR Yes = 1 patch, Memori a Nicotine 5-23 TOP, l 0.875 MG/HR 19:00: Daily, X 7 [place] Transdermal 00 day, # 7 Patch patch, 0 [Nicoderm Refill(s), C-Q] Pharmacy: [facility] [place] [address] Acetaminoph Yes 1 tab, PO, Memoria en 325 MG / 5-23 Q4H, PRN l Hydrocodone 19:00: Pain Score [place] Bitartrate 00 6-10, X 7 5 MG Oral day, # 15 Tablet tab, 0 [[place] Refill(s), 5/325] given to patient naproxen Yes 250 mg = 1 Mem oria 250 mg oral 5-23 tab, PO, l tablet 19:00: Q8H, PRN Pain Score 4-6, X 5 day, # 20 tab, 0 Refill(s), Pharmacy: [facility] [place] [address] Zyrtec No Notes: Memoria 5-22 (Same As: l 17:18: Zyrtec) [place] Aleve No Notes: Memoria 5-22 (Same as: l 17:06: Naprosyn) Take with food. Tylenol No Notes: Max Rob harsha 5-22 acetaminop l 14:00: hen = [place] 00 4000mg/day (4 gm/day). (Same as: Tylenol) remove No Notes: Memoria patch 5-22 Remove old l 14:00: patch [place] 00 before applicatio n of new patch. WASTE: F/P - P Waste Black; E - P Waste Black pneumococca No Notes: Rob harsha l capsular 5-22 (Same as: l polysacchar 11:46: Pneumovax H ermann jaimie type 1 53 23) vaccine / Refrigerat pneumococca e l capsular polysacchar jaimie type 10A vaccine / pneumococca l capsular polysacchar jaimie type 11A vaccine / pneumococca l capsular polysacchar jaimie type 12F vaccine / pneumococca l capsular polysacchar Cefazolin No Notes: Memori a 5-22 (Same as l 03:00: Ancef) sennosides, No Notes: Rob harsha CARE HOME 5-22 (Same as: l 02:00: Senokot) Labetalol No 10 mg, 2 Rob harsha 5-21 mL, Route: l 21:15: IVP, Drug form: INJ, Q15Min, Dosing Weight 91.818, kg, PRN Hypertensi on, Start date: 10/13/17 16:15:00 CDT, Duration: 3 doses or times, Stop date: 11/13/17 0:00:00 CDT sugammadex No Notes: Memor ia -21 (Same as: l 21:04: [place]) niCARdipine No Route: IV, Memoria (ANES) 5-21 Drug form: l 19:57: INJ, ONCE, Stop date: 10/13/17 14:57:00 CDT acetaminoph No Route: IV, Memoria en (ANES) -21 Drug form: l 19:57: INJ, ONCE, Stop date: 10/13/17 14:57:00 CDT metoprolol No Route: IV, M emoria (ANES) 5-21 Drug form: l 19:47: INJ, ONCE, Stop date: 10/13/17 14:47:00 CDT dexamethaso No Route: IV, Memoria ne (ANES) 10-13 Drug form: l 19:37: INJ, ONCE, Stop date: 10/13/17 14:37:00 CDT fentaNYL No Route: IV, Mem oria (ANES) 5-21 Drug form: l 19:37: INJ, ONCE, Stop date: 10/13/17 14:37:00 CDT propofol No Route: IV, Mem oria (ANES) 5-21 Drug form: l 19:37: INJ, ONCE, Stop date: 10/13/17 14:37:00 CDT rocuronium No Route: IV, M emoria (ANES) 5-21 Drug form: l 19:37: INJ, ONCE, Stop date: 10/13/17 14:37:00 CDT lidocaine No Route: IV, Me moria (ANES) - Drug form: l 19:37: INJ, ONCE, Stop date: 10/13/17 14:37:00 CDT ceFAZolin No Route: IV, Me moria (ANES) - Drug form: l 19:12: INJ, ONCE, Stop date: 10/13/17 14:12:00 CDT Sodium No Route: IV, Memor ia Chloride - Total l 0.9% IV 19:00: Volume: [place] (ANES) 1000 00 1,000, mL Start date: 10/13/17 14:00:00 CDT, Stop date: 10/13/17 15:00:00 CDT Isolyte S No Route: IV, Me moria PH 7.4 5-21 Total l (ANES) 1000 18:10: Volume: Her benito mL 00 1,000, Start date: 10/13/17 13:10:00 CDT, Stop date: 10/13/17 14:10:00 CDT Enoxaparin No Notes: Memor ia 5-21 (Same as: l 14:00: Lovenox) Nicotine No Notes: Memoria 5-21 (Same as: l 14:00: Habitrol) "Remove old patch before applicatio n of new patch" WASTE: F/P - P Waste Black; E - P Waste Black Robaxin No Notes: Memoria 5-21 (Same l 13:00: as:Robaxin ) Tramadol No Notes: Not Mem oria -21 to exceed l 11:00: 400mg/day. Claudio (Same As: Ultram) Morphine No 4 mg, Memoria 10-13 Route: l 10:30: IVP, ONCE, Dosing Weight 91.818, kg, Start date: 10/13/17 5:30:00 CDT, Stop date: 10/13/17 5:30:00 CDT Acetaminoph No Notes: Rob harsha en 325 MG / 10-13 (Same as: l Hydrocodone 09:32: [place] Melissa nn Bitartrate 00 325/5) Do 5 MG Oral not exceed Tablet 4gm/day of [[place] acetaminop 5/325] hen. ketOROLAC No 4 days Memor ia 10-13 l 09:32: MEDICATION WASTE Product Size: 30 mg Product Wasted: _0__ mg Acetaminoph No Notes: Max Memoria en - acetaminop l 09:29: hen 4000 Claudio 00 mg/day (4 gm/day). (Same as: Tylenol Extra Strength) Ondansetron No Notes: Rob harsha - (Same as: l 09:29: Zofran) MEDICATION WASTE Product Size: 4 mg Product Wasted: 0__ mg Saline No Notes: Memoria Flush 0.9% 10-13 Same as: l 04:56: BD Posiflush Sterile Calcium No 1,000 mL, Memor ia Chloride 10-13 2,000 l 0.0014 04:56: ml/hr, Claudio MEQ/ML / 00 Route: IV, Potassium ONCE, Chloride Priority: 0.004 STAT, MEQ/ML / Dosing Sodium Weight Chloride 91.818 kg, 0.103 Start MEQ/ML / date: Sodium 10/12/17 Lactate 23:56:00 0.028 CDT, Stop MEQ/ML date: Injectable 10/12/17 Solution 23:56:00 CDT Isolyte S No Notes: Memori a PH 7.4 5-21 (Same as: l 1,000 mL 04:56: Isolyte S Herm miriam 00 PH 7.4) lisinopril lisinopril No 1 Q1D lisinopril [place] 2.5 mg 2.5 mg 2.5 mg da tablet Take tablet Take tablet [facility] 1 tablet 1 tablet Take 1 al every day every day tablet Hea lth by oral by oral every day Outr eac route for route for by oral h 30 days. 30 days. route for Pr ogram 30 days. metformin metformin No metformin [place] 500 mg 500 mg 500 mg da tablet Take tablet Take tablet [facility] 1 tablet 1 tablet Take 1 al twice a day twice a day tablet Health by oral by oral twice a Outrea c route for route for day by h 30 days. 30 days. oral route P rogram for 30 days. nicotine 21 nicotine 21 No 1patch( Q1D nicotine [place] mg/24 hr mg/24 hr es) 21 mg/24 da daily daily hr daily [facility] transdermal transdermal transderma al patch Apply patch Apply l patch Health 1 patch 1 patch Apply 1 Outrea c every day every day patch h by by every day Program transdermal transdermal by route for route for transderma 45 days. 45 days. l route for 45 days. pantoprazol pantoprazol No pantoprazo [place] e 40 mg e 40 mg le 40 mg da tablet,trang tablet,trang tablet,del [facility] yed release yed release ayed a l TAKE 1 TAKE 1 release Health TABLET BY TABLET BY TAKE 1 Out reac MOUTH EVERY MOUTH EVERY TABLET BY h DAY DAY MOUTH Program EVERY DAY Immunizations Ordered Immunization Filled Immunization Date Status Commen ts Source Name Name pneumococcal pneumococcal 2020-01-13 Completed [place] conjugate PCV 13 conjugate PCV 13 00:00:00 [facility] Tdap Tdap 2020-01-13 Completed [facility] 00:00:00 [facility] pneumococcal pneumococcal 2017-10-14 Completed [place] polysaccharide PPV23 polysaccharide PPV23 00:00:00 [facility] Vital Signs Vital Name Observation Time Observation Value Comments Source BP Diastolic 2020-01-13 00:00:00 90 mm[Hg] [place] [facility] Height 2020-01-13 00:00:00 66 [in_i] [place] [facility] BMI (Body Mass 2020-01-13 00:00:00 31 kg/m2 [place]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) [facility] BP Systolic 2020-01-13 00:00:00 129 mm[Hg] [place] [facility] Body Weight 2020-01-13 00:00:00 3072 [oz_av] [place] [facility] BP Diastolic 2019-10-15 00:00:00 90 mm[Hg] [place] [facility] Height 2019-10-15 00:00:00 66 [in_i] [place] [facility] BMI (Body Mass 2019-10-15 00:00:00 31.5 kg/m2 [place]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) [facility] BP Systolic 2019-10-15 00:00:00 117 mm[Hg] [place] [facility] Body Weight 2019-10-15 00:00:00 195 [lb_av] [place] [facility] BP Diastolic 2019-04-29 00:00:00 87 mm[Hg] [place] [facility] Height 2019-04-29 00:00:00 66 [in_i] [place] [facility] BMI (Body Mass 2019-04-29 00:00:00 32.6 kg/m2 [place]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) [facility] BP Systolic 2019-04-29 00:00:00 130 mm[Hg] [place] [facility] Body Weight 2019-04-29 00:00:00 202.2 [lb_av] [place] [facility] BP Diastolic 2019-04-07 00:00:00 84 mm[Hg] [place] [facility] Height 2019-04-07 00:00:00 66 [in_i] [place] [facility] BMI (Body Mass 2019-04-07 00:00:00 33.1 kg/m2 [place]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) [facility] BP Systolic 2019-04-07 00:00:00 126 mm[Hg] [place] [facility] Body Weight 2019-04-07 00:00:00 204.9 [lb_av] [place] [facility] BP Diastolic 2019-03-31 00:00:00 80 mm[Hg] [place] [facility] Height 2019-03-31 00:00:00 66 [in_i] [place] [facility] BMI (Body Mass 2019-03-31 00:00:00 32.9 kg/m2 [place]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) [facility] BP Systolic 2019-03-31 00:00:00 140 mm[Hg] [place] [facility] Body Weight 2019-03-31 00:00:00 204 [lb_av] [place] [facility] Temperature Oral (F) 2018-05-21 21:16:00 97.8 F [facility] [place] Heart Rate 2018-05-21 21:16:00 [facility] [place] Respitory Rate 2018-05-21 21:16:00 Memori al [place] Height 2018-05-21 21:16:00 167.64 cm [facility] [place] Systolic (mm Hg) 2018-05-21 21:16:00 Rob rial [place] Diastolic (mm Hg) 2018-05-21 21:16:00 Mem orial [place] Height 2018-05-15 15:20:00 166.37 cm [facility] [place] BMI Calculated 2018-05-15 15:20:00 Memori al [place] Weight 2018-05-15 15:20:00 [facility] [place] Temperature Oral (F) 2018-05-15 15:20:00 98.3 F [facility] [place] Respitory Rate 2018-05-15 15:20:00 Memori al [place] Heart Rate 2018-05-15 15:20:00 [facility] [place] Systolic (mm Hg) 2018-05-15 15:20:00 Rob rial [place] Diastolic (mm Hg) 2018-05-15 15:20:00 Mem orial [place] Weight 2018-05-12 19:10:00 [facility] [place] Height 2018-05-12 19:10:00 167.64 cm [facility] [place] BMI Calculated 2018-05-12 19:10:00 Memori al [place] Systolic (mm Hg) 2018-05-12 19:10:00 Rob rial [place] Diastolic (mm Hg) 2018-05-12 19:10:00 Mem orial [place] Heart Rate 2018-05-12 19:10:00 [facility] [place] Temperature Oral (F) 2018-05-12 19:10:00 98.2 F [facility] [place] Respitory Rate 2017-10-15 21:14:00 Memori al [place] Temperature Oral (F) 2017-10-15 21:14:00 98.8 F [facility] [place] Systolic (mm Hg) 2017-10-15 21:14:00 Rob rial [place] Diastolic (mm Hg) 2017-10-15 21:14:00 Mem orial [place] Heart Rate 2017-10-15 21:14:00 [facility] [place] Respitory Rate 2017-10-15 17:32:00 Memori al [place] Systolic (mm Hg) 2017-10-15 17:32:00 Rob rial [place] Diastolic (mm Hg) 2017-10-15 17:32:00 Mem orial [place] Heart Rate 2017-10-15 17:32:00 [facility] [place] Temperature Oral (F) 2017-10-15 17:32:00 98.7 F [facility] [place] Temperature Oral (F) 2017-10-15 12:15:00 98.6 F [facility] [place] Systolic (mm Hg) 2017-10-15 12:15:00 Rob rial [place] Diastolic (mm Hg) 2017-10-15 12:15:00 Mem orial [place] Respitory Rate 2017-10-15 12:15:00 Memori al [place] Heart Rate 2017-10-15 12:15:00 [facility] [place] BMI Calculated 2017-10-13 23:33:00 Memori al [place] Weight 2017-10-13 23:33:00 [facility] [place] Height 2017-10-13 23:33:00 167.64 cm [facility] Weight 2017-10-13 04:43:00 [facility] [place] Procedures Procedure Date / Time Performed Performing Clinician Angel amaya US, abdomen, complete 2019-04-29 00:00:00 [place]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 [facility] Control nasal 2018-05-12 19:44:00 [facility] hemorrhage, anterior, simple (limited cautery and/or packing) any method [U] XRAY PELVIS MIN 3 2018-01-16 00:00:00 [facility] [address] Physicians [U] XRAY PELVIS MIN 3 2018-01-08 00:00:00 [facility] [address] Physicians [U] XRAY PELVIS MIN 3 2017-11-28 00:00:00 [facility] [address] Physicians Pelvis/hip Joint 2017-09-23 00:00:00 [place] [facility] Orthopedic Surgery [place] [facility] Procedure on pelvic [facility] region<sup>1</sup> Plan of Care Planned Activity Planned Date Details Comments Source Diagnostic Test 2020-01-13 CT + NG + TV, DNA, [place]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 [facility] Pending 00:00:00 urine/swab [code = Health Ou treach CT + NG + TV, DNA, Program urine/swab] Diagnostic Test 2020-01-13 RPR (rapid plasma [place] [facility] Pending 00:00:00 reagin), serum Health Outrea ch [code = RPR (rapid Program plasma reagin), serum] Diagnostic Test 2020-01-13 HbA1c (hemoglobin [place] [facility] Pending 00:00:00 A1c), blood [code Health Out reach = HbA1c Program (hemoglobin A1c), blood] Diagnostic Test 2020-01-13 CMP, serum or [place] [facility] Pending 00:00:00 plasma [code = Health Outrea ch CMP, serum or Program plasma] Diagnostic Test 2020-01-13 urinalysis, [place] Ep iscopal Pending 00:00:00 complete [code = Health Outr each urinalysis, Program complete] Diagnostic Test 2020-01-13 TSH + free T4, [place] [facility] Pending 00:00:00 serum [code = TSH Health Out reach + free T4, serum] Program Diagnostic Test 2020-01-13 CBC w/ auto diff [place] [facility] Pending 00:00:00 [code = CBC w/ Health Outrea ch auto diff] Program Diagnostic Test 2020-01-13 lipid panel, serum [place]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 Program 2019-04-29 2019-04-29 Enoc Barrera [facility] [place] - [id number] [place] 00:00:00 00:00:00 Adriana Connell MD: [id number] [facility] Epis copy operator [place] [address] [place] [address], [facility] [address], [facility] Program [phone] , Ph. 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 2018-05-22 2018-05-22 Outpatient Mazel, L [facility] [id number] 15:30:00 15:30:00 Moraima 2018-05-21 2018-05-21 Outpatient Mazel, L [facility] [id number] 15:30:00 23:59:59 Moraima 2018-05-15 2018-05-15 Outpatient Viet, [facility] [id number] 10:30:00 23:59:59 Gume P 04 2018-05-15 2018-05-15 Outpatient Viet, [facility] [id number] 09:45:00 23:59:59 Gume P 02 2018-05-15 2018-05-15 Outpatient VISIT, [facility] [id number] 10:30:00 10:30:00 NURSE [facility] 03 XRAY 2018-05-14 2018-05-14 Outpatient Donepudi, MG [facility] [id number] 14:30:00 14:30:00 Sreekrishna 01 [facility] 2018-05-12 2018-05-12 Outpatient Donepudi, MG [facility] [id number] 13:00:00 23:59:59 Sreekrishna 00 [facility] 2018-01-21 2018-01-21 [facility] [id number] Univers 11:15:00 11:15:00 t; DEAN BETANCOURT [facility] [place], [place] DEAN BETANCOURT Physici ans 2018-01-14 2018-01-14 [facility]OB[facility] Orthopedics [id number] Univers 10:15:00 10:15:00 [place] DE[place] Physici ans 2017-12-03 2017-12-03 [facility]OB[facility] Orthopedics [id number] Univers 10:15:00 10:15:00 t; DEAN BETANCOURT of [place], [place] DEAN BETANCOURT Physici ans 2017-10-29 2017-10-29 Appointmen [facility] [id number] Univers 10:00:00 10:00:00 t; DEAN BETANCOURT [place], [place] DEAN BETANCOURT Physici ans 2017-10-12 2017-10-15 Outpatient Johnny, [facility] [id number] 23:43:00 18:35:00 Jose Gar Results Test Description Test Time Test Comments Results Result Comments Source Hepatitis C virus RNA [Units/volume] (viral load) in S gaby or 2019-04-09 00:00:00 Plasma by Probe and target amplification method Test Item Value Reference Range Interpretation Comme nts Hepatitis C virus RNA [Units[place] [address] 00 IU/mL Plasma by Probe and target amplification method (test code = 20009-8) Hepatitis C virus RNA [log units/volume] (viral load) in 6.952 log1 0 IU/mL Serum or Plasma by Probe and target amplification method (test code = 69029-0) test information: (test code = test information:) comment [facility] ProgramHep[facility] virus RNA [Presence] in Serum or Plasma by Probe and target amplification [id number] 00:00:00 Test Item Value Reference Range Interpretation Comments Hepatitis C virus RNA [Presence] in positive negative A Serum or Plasma by Probe and target amplification method (test code = 21284-9) [facility] RNA [Units/volume] (viral load) in Serum or Plasma by Probe and target amplification method 2019-04-09 00:00:00 Test Item Value Reference Range Interpretation Comments Hepatitis C virus RNA 9666485 IU/mL [Units/volume] (viral load) in Serum or Plasma by Probe and target amplification method (test code = 58718-0) Hepatitis C virus RNA [log 6.952 log10 IU/mL units/volume] (viral load) in Serum or Plasma by Probe and target amplification method (test code = 94060-1) test information: (test comment code = test information:) [facility] ProgramHepatitis C virus RNA [Presence] in Serum or Plasma by Probe and target amplification [id number] 00:00:00 Test Item Value Reference Range Interpretation Comments Hepatitis C virus RNA [Presence] in positive negative A Serum or Plasma by Probe and target amplification method (test code = 26831-5) [facility] [id number] 00:00:00 Test Item Value Reference Range Interpretation Comments Prostate specific Ag [Mass/volume] 2.2 NG/mL 0.0-4.0 in Serum or Plasma (test code = 2857-1) reflex criteria (test code = reflex comment criteria) [facility] or [id number] 00:00:00 Test Item Value Reference Range Interpretation Comments Prostate specific Ag [Mass/volume] 2.2 NG/mL 0.0-4.0 in Serum or Plasma (test code = 2857-1) reflex criteria (test code = reflex comment criteria) [facility]achomat[facility] and Neisseria gonorrhoeae rRNA panel - Unspecified specimen by Probe and target amplification [id number] 00:00:00 Test Item Value Reference Range Interpretation Comments Chlamydia trachomatis rRNA negative negative [Presence] in Unspecified specimen by Probe and target amplification method (test code = 55879-2) Neisseria gonorrhoeae rRNA negative negative [Presence] in Unspecified specimen by Probe and target amplification method (test code = 86131-0) [facility]omat[facility] and Neisseria gonorrhoeae rRNA panel - Unspecified specimen by Probe and target amplification [id number] 00:00:00 Test Item Value Reference Range Interpretation Comments Chlamydia trachomatis rRNA negative negative [Presence] in Unspecified specimen by Probe and target amplification method (test code = 37509-0) Neisseria gonorrhoeae rRNA negative negative [Presence] in Unspecified specimen by Probe and target amplification method (test code = 99501-5) [facility] TV, DNA, urine/swab 2019-04-05 00:00:00 Test Item Value Reference Range Interpretation Comments Chlamydia trachomatis rRNA positive negative A [Presence] in Unspecified specimen by Probe and target amplification method (test code = 39830-0) Neisseria gonorrhoeae rRNA negative negative [Presence] in Unspecified specimen by Probe and target amplification method (test code = 79125-2) trich vag by NOREEN (test code = trich negative negative vag by NOREEN) [facility] TV, DNA, urine/swab 2019-04-05 00:00:00 Test Item Value Reference Range Interpretation Comments Chlamydia trachomatis rRNA positive negative A [Presence] in Unspecified specimen by Probe and target amplification method (test code = 57811-8) Neisseria gonorrhoeae rRNA negative negative [Presence] in Unspecified specimen by Probe and target amplification method (test code = 51936-1) trich vag by NOREEN (test code = trich negative negative vag by NOREEN) [facility]written [id number] 00:00:00 Test Item Value Reference Range Interpretation Comments written authorization (test code = comment written authorization) [facility], DNA, urine/swab 2019-04-05 00:00:00 Test Item Value Reference Range Interpretation Comments Chlamydia trachomatis rRNA positive negative A [Presence] in Unspecified specimen by Probe and target amplification method (test code = 84789-3) Neisseria gonorrhoeae rRNA negative negative [Presence] in Unspecified specimen by Probe and target amplification method (test code = 20197-2) trich vag by NOREEN (test code = trich negative negative vag by NOREEN) [facility]written [id number] 00:00:00 Test Item Value Reference Range Interpretation Comments written authorization (test code = comment written authorization) [facility]Bacteria identified in Urine by [id number] 00:00:00 Test Item Value Reference Range Interpretation Comments Bacteria identified in Urine by no growth Culture (test code = 630-4) [facility], DNA, urine/swab 2019-04-02 00:00:00 Test Item Value Reference Range Interpretation Comments Chlamydia trachomatis rRNA negative negative [Presence] in Unspecified specimen by Probe and target amplification method (test code = 24361-1) Neisseria gonorrhoeae rRNA negative negative [Presence] in Unspecified specimen by Probe and target amplification method (test code = 89823-2) trich vag by NOREEN (test code = trich negative negative vag by NOREEN) [facility]Herpes simplex virus 1+2 IgG Ab [Units/volume] in [id number] 00:00:00 Test Item Value Reference Range Interpretation Comments Herpes simplex virus 1 IgG Ab 56.80 index 0.00-0.90 H [Units/volume] in Serum by Immunoassay (test code = 5206-8) Herpes simplex virus 2 IgG Ab 1.19 index 0.00-0.90 H [Units/volume] in Serum by Immunoassay (test code = 5209-2) Herpes simplex virus 2 IgG Ab positive negative A [Presence] in Serum by Immunoassay (test code = 31822-8) [facility] HospitalBacteria identified in Urine by [id number] 00:00:00 Test Item Value Reference Range Interpretation Comments Bacteria identified in Urine by no growth Culture (test code = 630-4) [facility], [id number] 00:00:00 Test Item Value Reference Range Interpretation Comments interpretation (test code = note interpretation) pdf image (test code = pdf image) . [facility]Bacteria identified in Urine by [id number] 00:00:00 Test Item Value Reference Range Interpretation Comments Bacteria identified in Urine by no growth Culture (test code = 630-4) [facility] + TV, DNA, urine/swab 2019-04-02 00:00:00 Test Item Value Reference Range Interpretation Comments Chlamydia trachomatis rRNA negative negative [Presence] in Unspecified specimen by Probe and target amplification method (test code = 19292-6) Neisseria gonorrhoeae rRNA negative negative [Presence] in Unspecified specimen by Probe and target amplification method (test code = 40459-4) trich vag by NOREEN (test code = trich negative negative vag by NOREEN) [facility]Herpes simplex virus 1+2 IgG Ab [Units/volume] in [id number] 00:00:00 Test Item Value Reference Range Interpretation Comments Herpes simplex virus 1 IgG Ab 56.80 index 0.00-0.90 H [Units/volume] in Serum by Immunoassay (test code = 5206-8) Herpes simplex virus 2 IgG Ab 1.19 index 0.00-0.90 H [Units/volume] in Serum by Immunoassay (test code = 5209-2) Herpes simplex virus 2 IgG Ab positive negative A [Presence] in Serum by Immunoassay (test code = 78843-0) [facility]Bacteria identified in Urine by [id number] 00:00:00 Test Item Value Reference Range Interpretation Comments Bacteria identified in Urine by no growth Culture (test code = 630-4) [facility], [id number] 00:00:00 Test Item Value Reference Range Interpretation Comments interpretation (test code = note interpretation) pdf image (test code = pdf image) . [facility] HospitalBacteria identified in Urine by [id number] 00:00:00 Test Item Value Reference Range Interpretation Comments Bacteria identified in Urine by no growth Culture (test code = 630-4) [facility] + TV, DNA, urine/swab 2019-04-02 00:00:00 Test Item Value Reference Range Interpretation Comments Chlamydia trachomatis rRNA negative negative [Presence] in Unspecified specimen by Probe and target amplification method (test code = 74616-6) Neisseria gonorrhoeae rRNA negative negative [Presence] in Unspecified specimen by Probe and target amplification method (test code = 62266-1) trich vag by NOREEN (test code = trich negative negative vag by NOREEN) [facility] HospitalHerpes simplex virus 1+2 IgG Ab [Units/volume] in [id number] 00:00:00 Test Item Value Reference Range Interpretation Comments Herpes simplex virus 1 IgG Ab 56.80 index 0.00-0.90 H [Units/volume] in Serum by Immunoassay (test code = 5206-8) Herpes simplex virus 2 IgG Ab 1.19 index 0.00-0.90 H [Units/volume] in Serum by Immunoassay (test code = 5209-2) Herpes simplex virus 2 IgG Ab positive negative A [Presence] in Serum by Immunoassay (test code = 55629-3) [facility] HospitalBacteria identified in Urine by [id number] 00:00:00 Test Item Value Reference Range Interpretation Comments Bacteria identified in Urine by no growth Culture (test code = 630-4) [facility], [id number] 00:00:00 Test Item Value Reference Range Interpretation Comments interpretation (test code = note interpretation) pdf image (test code = pdf image) . [facility] HospitalFree T4 and TSH panel - Serum or [id number] 00:00:00 Test Item Value Reference Range Interpretation Comments Thyrotropin [Units/volume] in 1.050 uIU/mL 0.450-4.500 Serum or Plasma by Detection limit <= 0.005 mIU/L (test code = 39525-0) Thyroxine (T4) free 1.15 NG/dL 0.82-1.77 [Mass/volume] in Serum or Plasma (test code = 3024-7) [facility]CBC [facility] Auto Differential panel - Blood 2019-04-01 00:00:00 Test Item Value Reference Range Interpretation Comments Leukocytes [#/volume] in Blood 10.4 x10e3/uL 3.4-10.8 by Automated count (test code = 6690-2) Erythrocytes [#/volume] in 5.71 x10e6/uL 4.14-5.80 Blood by Automated count (test code = 789-8) Hemoglobin [Mass/volume] in 16.0 g/dL 13.0-17.7 Blood (test code = 718-7) Hematocrit [Volume Fraction] of 48.4 % 37.5-51.0 Blood by Automated count (test code = 4544-3) Erythrocyte mean corpuscular 85 fL 79-97 volume [Entitic volume] by Automated count (test code = 787-2) Erythrocyte mean corpuscular 28.0 pg 26.6-33.0 hemoglobin [Entitic mass] by Automated count (test code = 785-6) Erythrocyte mean corpuscular 33.1 g/dL 31.5-35.7 hemoglobin concentration [Mass/volume] by Automated count (test code = 786-4) Erythrocyte distribution width 14.1 % 12.3-15.4 [Ratio] by Automated count (test code = 788-0) Platelets [#/volume] in Blood 196 x10e3/uL 150-450 by Automated count (test code = 777-3) Neutrophils/100 leukocytes in 60 % not estab. Blood by Automated count (test code = 770-8) Lymphocytes/100 leukocytes in 29 % not estab. Blood by Automated count (test code = 736-9) Monocytes/100 leukocytes in 8 % not estab. Blood by Automated count (test code = 5905-5) Eosinophils/100 leukocytes in 2 % not estab. Blood by Automated count (test code = 713-8) Basophils/100 leukocytes in 1 % not estab. Blood by Automated count (test code = 706-2) immature cells (test code = fnp immature cells) Neutrophils [#/volume] in Blood 6.2 x10e3/uL 1.4-7.0 by Automated count (test code = 751-8) Lymphocytes [#/volume] in Blood 3.0 x10e3/uL 0.7-3.1 by Automated count (test code = 731-0) Monocytes [#/volume] in Blood 0.8 x10e3/uL 0.1-0.9 by Automated count (test code = 742-7) Eosinophils [#/volume] in Blood 0.3 x10e3/uL 0.0-0.4 by Automated count (test code = 711-2) Basophils [#/volume] in Blood 0.1 x10e3/uL 0.0-0.2 by Automated count (test code = 704-7) immature granulocytes (test 0 % not estab. code = immature granulocytes) Granulocytes Immature 0.0 x10e3/uL 0.0-0.1 [#/volume] in Blood by Automated count (test code = 89001-9) Nucleated erythrocytes/100 fnp leukocytes [Ratio] in Blood by Automated count (test code = 28940-1) Morphology [interpretation] in fnp Blood Narrative (test code = 24472-9) [facility]Com[facility] 2000 panel - Serum or [id number] 00:00:00 Test Item Value Reference Range Interpretation Comments Glucose [Mass/volume] in Serum 120 mg/dL 65-99 H or Plasma (test code = 2345-7) Urea nitrogen [Mass/volume] in 9 mg/dL 8-27 Serum or Plasma (test code = 3094-0) Creatinine [Mass/volume] in 1.12 mg/dL 0.76-1.27 Serum or Plasma (test code = 2160-0) eGFR if nonafricn AM (test 71 mL/min/1.73 >59 code = eGFR if nonafricn AM) eGFR if africn AM (test code = 82 mL/min/1.73 >59 eGFR if africn AM) Urea nitrogen/Creatinine [Mass 8 10-24 L Ratio] in Serum or Plasma (test code = 3097-3) Sodium [Moles/volume] in Serum 144 mmol/L 134-144 or Plasma (test code = 2951-2) Potassium [Moles/volume] in 4.2 mmol/L 3.5-5.2 Serum or Plasma (test code = 2823-3) Chloride [Moles/volume] in 103 mmol/L 96-106 Serum or Plasma (test code = 2074-0) Carbon dioxide, total 26 mmol/L 20-29 [Moles/volume] in Serum or Plasma (test code = 2027-) Calcium [Mass/volume] in Serum 9.8 mg/dL 8.6-10.2 or Plasma (test code = 01184-2) Protein [Mass/volume] in Serum 7.3 g/dL 6.0-8.5 or Plasma (test code = 2885-2) Albumin [Mass/volume] in Serum 4.0 g/dL 3.6-4.8 or Plasma (test code = 1751-7) Globulin [Mass/volume] in 3.3 g/dL 1.5-4.5 Serum by calculation (test code = 66757-1) Albumin/Globulin [Mass Ratio] 1.2 1.2-2.2 in Serum or Plasma (test code = 1759-0) Bilirubin.total [Mass/volume] 0.6 mg/dL 0.0-1.2 in Serum or Plasma (test code = 1974-) Alkaline phosphatase 106 IU/L 39-117 [Enzymatic activity/volume] in Serum or Plasma (test code = 6768-6) Aspartate aminotransferase 21 IU/L 0-40 [Enzymatic activity/volume] in Serum or Plasma (test code = 0-8) Alanine aminotransferase 29 IU/L 0-44 [Enzymatic activity/volume] in Serum or Plasma (test code = 174-6) [facility] HospitalLipid 1996 panel - Serum or Plasma 2019-04-01 00:00:00 Test Item Value Reference Range Interpretation Comments Cholesterol [Mass/volume] in Serum 123 mg/dL 100-199 or Plasma (test code = 2093-3) Triglyceride [Mass/volume] in Serum 121 mg/dL 0-149 or Plasma (test code = 2571-8) Cholesterol in HDL [Mass/volume] in 31 mg/dL >39 L Serum or Plasma (test code = 2085-9) Cholesterol in VLDL [Mass/volume] 24 mg/dL 5-40 in Serum or Plasma by calculation (test code = 96665-7) Cholesterol in LDL [Mass/volume] in 68 mg/dL 0-99 Serum or Plasma by calculation (test code = 78167-8) comment: (test code = comment:) fnp [facility]Ac[facility] 2000 panel - Serum [id number] 00:00:00 Test Item Value Reference Range Interpretation Comments Hepatitis A virus IgM Ab [Presence] negative negative in Serum or Plasma by Immunoassay (test code = 87827-3) Hepatitis B virus surface Ag negative negative [Presence] in Serum or Plasma by Immunoassay (test code = 5196-1) Hepatitis B virus core IgM Ab negative negative [Presence] in Serum or Plasma by Immunoassay (test code = 04869-6) Hepatitis C virus Ab Signal/Cutoff >11.0 0.0-0.9 H in Serum or Plasma by Immunoassay (test code = 54883-6) [facility] HospitalHemoglobin A1c/Hemoglobin.total in [id number] 00:00:00 Test Item Value Reference Range Interpretation Comments Hemoglobin A1c/Hemoglobin.total in 6.0 % 4.8-5.6 H Blood (test code = 4548-4) [facility] HospitalHepatitis B virus surface Ab [Presence] in [id number] 00:00:00 Test Item Value Reference Range Interpretation Comments Hepatitis B virus surface Ab reactive [Presence] in Serum (test code = 71099-9) [facility] HospitalReagin Ab [Presence] in Serum by RPR 2019-04-01 00:00:00 Test Item Value Reference Range Interpretation Comments Reagin Ab [Presence] in Serum by non reactive non reactive RPR (test code = 18202-9) [facility]25-Hydroxyvitamin D [Mass/volume] in Serum or [id number] 00:00:00 Test Item Value Reference Range Interpretation Comments 25-Hydroxyvitamin D [Mass/volume] 12.3 NG/mL 30.0-100.0 L in Serum or Plasma (test code = 86733-0) [facility] HospitalHIV 1+2 Ab+HIV1 p24 Ag [Presence] in Serum by Sshvtnslzom9602-01-79 00:00:00 Test Item Value Reference Range Interpretation Comments HIV 1+2 Ab+HIV1 p24 Ag non reactive non reactive [Presence] in Serum by Immunoassay (test code = 08345-8) [facility] HospitalHepatitis C virus Ab Signal/Cutoff in Serum or Plasma by [id number] 00:00:00 Test Item Value Reference Range Interpretation Comments Hepatitis C virus Ab Signal/Cutoff in >11.0 0.0-0.9 H Serum or Plasma by Immunoassay (test code = 19541-0) comment: (test code = comment:) comment [facility]Free T4 and TSH panel - Serum or [id number] 00:00:00 Test Item Value Reference Range Interpretation Comments Thyrotropin [Units/volume] in 1.050 uIU/mL 0.450-4.500 Serum or Plasma by Detection limit <= 0.005 mIU/L (test code = 30513-4) Thyroxine (T4) free 1.15 NG/dL 0.82-1.77 [Mass/volume] in Serum or Plasma (test code = 3024-7) [facility]CBC W Auto Differential panel - Blood 2019-04-01 00:00:00 Test Item Value Reference Range Interpretation Comments Leukocytes [#/volume] in Blood 10.4 x10e3/uL 3.4-10.8 by Automated count (test code = 6690-2) Erythrocytes [#/volume] in 5.71 x10e6/uL 4.14-5.80 Blood by Automated count (test code = 789-8) Hemoglobin [Mass/volume] in 16.0 g/dL 13.0-17.7 Blood (test code = 718-7) Hematocrit [Volume Fraction] of 48.4 % 37.5-51.0 Blood by Automated count (test code = 4544-3) Erythrocyte mean corpuscular 85 fL 79-97 volume [Entitic volume] by Automated count (test code = 787-2) Erythrocyte mean corpuscular 28.0 pg 26.6-33.0 hemoglobin [Entitic mass] by Automated count (test code = 785-6) Erythrocyte mean corpuscular 33.1 g/dL 31.5-35.7 hemoglobin concentration [Mass/volume] by Automated count (test code = 786-4) Erythrocyte distribution width 14.1 % 12.3-15.4 [Ratio] by Automated count (test code = 788-0) Platelets [#/volume] in Blood 196 x10e3/uL 150-450 by Automated count (test code = 777-3) Neutrophils/100 leukocytes in 60 % not estab. Blood by Automated count (test code = 770-8) Lymphocytes/100 leukocytes in 29 % not estab. Blood by Automated count (test code = 736-9) Monocytes/100 leukocytes in 8 % not estab. Blood by Automated count (test code = 5905-5) Eosinophils/100 leukocytes in 2 % not estab. Blood by Automated count (test code = 713-8) Basophils/100 leukocytes in 1 % not estab. Blood by Automated count (test code = 706-2) immature cells (test code = fnp immature cells) Neutrophils [#/volume] in Blood 6.2 x10e3/uL 1.4-7.0 by Automated count (test code = 751-8) Lymphocytes [#/volume] in Blood 3.0 x10e3/uL 0.7-3.1 by Automated count (test code = 731-0) Monocytes [#/volume] in Blood 0.8 x10e3/uL 0.1-0.9 by Automated count (test code = 742-7) Eosinophils [#/volume] in Blood 0.3 x10e3/uL 0.0-0.4 by Automated count (test code = 711-2) Basophils [#/volume] in Blood 0.1 x10e3/uL 0.0-0.2 by Automated count (test code = 704-7) immature granulocytes (test 0 % not estab. code = immature granulocytes) Granulocytes Immature 0.0 x10e3/uL 0.0-0.1 [#/volume] in Blood by Automated count (test code = 03297-3) Nucleated erythrocytes/100 fnp leukocytes [Ratio] in Blood by Automated count (test code = 27435-4) Morphology [interpretation] in fnp Blood Narrative (test code = 55955-8) [facility]Com[facility] 2000 panel - Serum or [id number] 00:00:00 Test Item Value Reference Range Interpretation Comments Glucose [Mass/volume] in Serum 120 mg/dL 65-99 H or Plasma (test code = 2345-7) Urea nitrogen [Mass/volume] in 9 mg/dL 8-27 Serum or Plasma (test code = 3094-0) Creatinine [Mass/volume] in 1.12 mg/dL 0.76-1.27 Serum or Plasma (test code = 2160-0) eGFR if nonafricn AM (test 71 mL/min/1.73 >59 code = eGFR if nonafricn AM) eGFR if africn AM (test code = 82 mL/min/1.73 >59 eGFR if africn AM) Urea nitrogen/Creatinine [Mass 8 10-24 L Ratio] in Serum or Plasma (test code = 3097-3) Sodium [Moles/volume] in Serum 144 mmol/L 134-144 or Plasma (test code = 2951-2) Potassium [Moles/volume] in 4.2 mmol/L 3.5-5.2 Serum or Plasma (test code = 2823-3) Chloride [Moles/volume] in 103 mmol/L 96-106 Serum or Plasma (test code = 2075-0) Carbon dioxide, total 26 mmol/L 20-29 [Moles/volume] in Serum or Plasma (test code = 2027-9) Calcium [Mass/volume] in Serum 9.8 mg/dL 8.6-10.2 or Plasma (test code = 08129-8) Protein [Mass/volume] in Serum 7.3 g/dL 6.0-8.5 or Plasma (test code = 2885-2) Albumin [Mass/volume] in Serum 4.0 g/dL 3.6-4.8 or Plasma (test code = 1751-7) Globulin [Mass/volume] in 3.3 g/dL 1.5-4.5 Serum by calculation (test code = 10130-3) Albumin/Globulin [Mass Ratio] 1.2 1.2-2.2 in Serum or Plasma (test code = 1759-0) Bilirubin.total [Mass/volume] 0.6 mg/dL 0.0-1.2 in Serum or Plasma (test code = 1975-2) Alkaline phosphatase 106 IU/L 39-117 [Enzymatic activity/volume] in Serum or Plasma (test code = 6768-6) Aspartate aminotransferase 21 IU/L 0-40 [Enzymatic activity/volume] in Serum or Plasma (test code = 1920-8) Alanine aminotransferase 29 IU/L 0-44 [Enzymatic activity/volume] in Serum or Plasma (test code = 1742-6) [facility]Lipid 1996 panel - Serum or Plasma 2019-04-01 00:00:00 Test Item Value Reference Range Interpretation Comments Cholesterol [Mass/volume] in Serum 123 mg/dL 100-199 or Plasma (test code = 2093-3) Triglyceride [Mass/volume] in Serum 121 mg/dL 0-149 or Plasma (test code = 2571-8) Cholesterol in HDL [Mass/volume] in 31 mg/dL >39 L Serum or Plasma (test code = 2085-9) Cholesterol in VLDL [Mass/volume] 24 mg/dL 5-40 in Serum or Plasma by calculation (test code = 15224-9) Cholesterol in LDL [Mass/volume] in 68 mg/dL 0-99 Serum or Plasma by calculation (test code = 00736-3) comment: (test code = comment:) fnp [facility]Ac[facility] 2000 [facility] - Serum Ckbrmsyxsxr2322-87-56 00:00:00 Test Item Value Reference Range Interpretation Comments Hepatitis A virus IgM Ab [Presence] negative negative in Serum or Plasma by Immunoassay (test code = 39956-7) Hepatitis B virus surface Ag negative negative [Presence] in Serum or Plasma by Immunoassay (test code = 5196-1) Hepatitis B virus core IgM Ab negative negative [Presence] in Serum or Plasma by Immunoassay (test code = 29160-7) Hepatitis C virus Ab Signal/Cutoff >11.0 0.0-0.9 H in Serum or Plasma by Immunoassay (test code = 26736-7) [facility] HospitalHemoglobin A1c/Hemoglobin.total in Mggyd5026-81-04 00:00:00 Test Item Value Reference Range Interpretation Comments Hemoglobin A1c/Hemoglobin.total in 6.0 % 4.8-5.6 H Blood (test code = 4548-4) [facility] HospitalHepatitis B virus surface Ab [Presence] in Tfexm0700-57-02 00:00:00 Test Item Value Reference Range Interpretation Comments Hepatitis B virus surface Ab reactive [Presence] in Serum (test code = 04469-8) [facility] HospitalReagin Ab [Presence] in Serum by RPR 2019-04-01 00:00:00 Test Item Value Reference Range Interpretation Comments Reagin Ab [Presence] in Serum by non reactive non reactive RPR (test code = 66824-3) [facility]25-Hydroxy[facility]amin D [Mass/volume] in Serum or [id number] 00:00:00 Test Item Value Reference Range Interpretation Comments 25-Hydroxyvitamin D [Mass/volume] 12.3 NG/mL 30.0-100.0 L in Serum or Plasma (test code = 36695-3) [facility] HospitalHIV 1+2 Ab+HIV1 p24 Ag [Presence] in Serum by Titpbmhygwi1850-67-32 00:00:00 Test Item Value Reference Range Interpretation Comments HIV 1+2 Ab+HIV1 p24 Ag non reactive non reactive [Presence] in Serum by Immunoassay (test code = 18153-2) [facility] HospitalHepatitis C virus Ab Signal/Cutoff in Serum or Plasma by Hzbxnmvpxfx1275-39-73 00:00:00 Test Item Value Reference Range Interpretation Comments Hepatitis C virus Ab Signal/Cutoff in >11.0 0.0-0.9 H Serum or Plasma by Immunoassay (test code = 24964-4) comment: (test code = comment:) comment [facility]Free T4 and TSH panel - Serum or [id number] 00:00:00 Test Item Value Reference Range Interpretation Comments Thyrotropin [Units/volume] in 1.050 uIU/mL 0.450-4.500 Serum or Plasma by Detection limit <= 0.005 mIU/L (test code = 33521-1) Thyroxine (T4) free 1.15 NG/dL 0.82-1.77 [Mass/volume] in Serum or Plasma (test code = 3024-7) [facility] W Auto Differential panel - Blood 2019-04-01 00:00:00 Test Item Value Reference Range Interpretation Comments Leukocytes [#/volume] in Blood 10.4 x10e3/uL 3.4-10.8 by Automated count (test code = 6690-2) Erythrocytes [#/volume] in 5.71 x10e6/uL 4.14-5.80 Blood by Automated count (test code = 789-8) Hemoglobin [Mass/volume] in 16.0 g/dL 13.0-17.7 Blood (test code = 718-7) Hematocrit [Volume Fraction] of 48.4 % 37.5-51.0 Blood by Automated count (test code = 4544-3) Erythrocyte mean corpuscular 85 fL 79-97 volume [Entitic volume] by Automated count (test code = 787-2) Erythrocyte mean corpuscular 28.0 pg 26.6-33.0 hemoglobin [Entitic mass] by Automated count (test code = 785-6) Erythrocyte mean corpuscular 33.1 g/dL 31.5-35.7 hemoglobin concentration [Mass/volume] by Automated count (test code = 786-4) Erythrocyte distribution width 14.1 % 12.3-15.4 [Ratio] by Automated count (test code = 788-0) Platelets [#/volume] in Blood 196 x10e3/uL 150-450 by Automated count (test code = 777-3) Neutrophils/100 leukocytes in 60 % not estab. Blood by Automated count (test code = 770-8) Lymphocytes/100 leukocytes in 29 % not estab. Blood by Automated count (test code = 736-9) Monocytes/100 leukocytes in 8 % not estab. Blood by Automated count (test code = 5905-5) Eosinophils/100 leukocytes in 2 % not estab. Blood by Automated count (test code = 713-8) Basophils/100 leukocytes in 1 % not estab. Blood by Automated count (test code = 706-2) immature cells (test code = fnp immature cells) Neutrophils [#/volume] in Blood 6.2 x10e3/uL 1.4-7.0 by Automated count (test code = 751-8) Lymphocytes [#/volume] in Blood 3.0 x10e3/uL 0.7-3.1 by Automated count (test code = 731-0) Monocytes [#/volume] in Blood 0.8 x10e3/uL 0.1-0.9 by Automated count (test code = 742-7) Eosinophils [#/volume] in Blood 0.3 x10e3/uL 0.0-0.4 by Automated count (test code = 711-2) Basophils [#/volume] in Blood 0.1 x10e3/uL 0.0-0.2 by Automated count (test code = 704-7) immature granulocytes (test 0 % not estab. code = immature granulocytes) Granulocytes Immature 0.0 x10e3/uL 0.0-0.1 [#/volume] in Blood by Automated count (test code = 66423-5) Nucleated erythrocytes/100 fnp leukocytes [Ratio] in Blood by Automated count (test code = 48533-6) Morphology [interpretation] in fnp Blood Narrative (test code = 08806-7) [facility] ProgramCom[facility] 2000 panel - Serum or Nsudop2712-45-92 00:00:00 Test Item Value Reference Range Interpretation Comments Glucose [Mass/volume] in Serum 120 mg/dL 65-99 H or Plasma (test code = 2345-7) Urea nitrogen [Mass/volume] in 9 mg/dL 8-27 Serum or Plasma (test code = 3094-0) Creatinine [Mass/volume] in 1.12 mg/dL 0.76-1.27 Serum or Plasma (test code = 2160-0) eGFR if nonafricn AM (test 71 mL/min/1.73 >59 code = eGFR if nonafricn AM) eGFR if africn AM (test code = 82 mL/min/1.73 >59 eGFR if africn AM) Urea nitrogen/Creatinine [Mass 8 10-24 L Ratio] in Serum or Plasma (test code = 3097-3) Sodium [Moles/volume] in Serum 144 mmol/L 134-144 or Plasma (test code = 2951-2) Potassium [Moles/volume] in 4.2 mmol/L 3.5-5.2 Serum or Plasma (test code = 2823-3) Chloride [Moles/volume] in 103 mmol/L 96-106 Serum or Plasma (test code = 5-0) Carbon dioxide, total 26 mmol/L 20-29 [Moles/volume] in Serum or Plasma (test code = 2027-9) Calcium [Mass/volume] in Serum 9.8 mg/dL 8.6-10.2 or Plasma (test code = 89496-2) Protein [Mass/volume] in Serum 7.3 g/dL 6.0-8.5 or Plasma (test code = 2885-2) Albumin [Mass/volume] in Serum 4.0 g/dL 3.6-4.8 or Plasma (test code = 1751-7) Globulin [Mass/volume] in 3.3 g/dL 1.5-4.5 Serum by calculation (test code = 02061-2) Albumin/Globulin [Mass Ratio] 1.2 1.2-2.2 in Serum or Plasma (test code = 1759-0) Bilirubin.total [Mass/volume] 0.6 mg/dL 0.0-1.2 in Serum or Plasma (test code = 1974-2) Alkaline phosphatase 106 IU/L 39-117 [Enzymatic activity/volume] in Serum or Plasma (test code = 6768-6) Aspartate aminotransferase 21 IU/L 0-40 [Enzymatic activity/volume] in Serum or Plasma (test code = 1920-8) Alanine aminotransferase 29 IU/L 0-44 [Enzymatic activity/volume] in Serum or Plasma (test code = 1742-6) [facility] or Plasma 2019-04-01 00:00:00 Test Item Value Reference Range Interpretation Comments Cholesterol [Mass/volume] in Serum 123 mg/dL 100-199 or Plasma (test code = 2092-3) Triglyceride [Mass/volume] in Serum 121 mg/dL 0-149 or Plasma (test code = 2571-8) Cholesterol in HDL [Mass/volume] in 31 mg/dL >39 L Serum or Plasma (test code = 2084-9) Cholesterol in VLDL [Mass/volume] 24 mg/dL 5-40 in Serum or Plasma by calculation (test code = 08952-1) Cholesterol in LDL [Mass/volume] in 68 mg/dL 0-99 Serum or Plasma by calculation (test code = 81878-8) comment: (test code = comment:) fnp [facility] - Serum Aoymssgbabb2028-28-69 00:00:00 Test Item Value Reference Range Interpretation Comments Hepatitis A virus IgM Ab [Presence] negative negative in Serum or Plasma by Immunoassay (test code = 23285-7) Hepatitis B virus surface Ag negative negative [Presence] in Serum or Plasma by Immunoassay (test code = 5196-1) Hepatitis B virus core IgM Ab negative negative [Presence] in Serum or Plasma by Immunoassay (test code = 16465-1) Hepatitis C virus Ab Signal/Cutoff >11.0 0.0-0.9 H in Serum or Plasma by Immunoassay (test code = 62369-0) [facility]/Hemoglobin.total in Njpka1454-25-94 00:00:00 Test Item Value Reference Range Interpretation Comments Hemoglobin A1c/Hemoglobin.total in 6.0 % 4.8-5.6 H Blood (test code = 4548-4) [facility] surface Ab [Presence] in Rfrfn9818-73-26 00:00:00 Test Item Value Reference Range Interpretation Comments Hepatitis B virus surface Ab reactive [Presence] in Serum (test code = 66888-5) [facility] [Presence] in Serum by RPR 2019-04-01 00:00:00 Test Item Value Reference Range Interpretation Comments Reagin Ab [Presence] in Serum by non reactive non reactive RPR (test code = 38773-9) [facility]25-Hydroxyvitamin D [Mass/volume] in Serum or Yzcovf3719-32-71 00:00:00 Test Item Value Reference Range Interpretation Comments 25-Hydroxyvitamin D [Mass/volume] 12.3 NG/mL 30.0-100.0 L in Serum or Plasma (test code = 95817-5) [facility]HIV [facility]+2 Ab+HIV1 p24 Ag [Presence] in Serum by Uagtrilgjxt7747-94-87 00:00:00 Test Item Value Reference Range Interpretation Comments HIV 1+2 Ab+HIV1 p24 Ag non reactive non reactive [Presence] in Serum by Immunoassay (test code = 28816-5) [facility] ProgramHepatitis C virus Ab Signal/Cutoff in Serum or Plasma by Pjqxyxlwcfk0229-03-46 00:00:00 Test Item Value Reference Range Interpretation Comments Hepatitis C virus Ab Signal/Cutoff in >11.0 0.0-0.9 H Serum or Plasma by Immunoassay (test code = 92271-4) comment: (test code = comment:) comment [facility][U] XRAY PELVIS MIN 3 VWS 61635 2017-10-29 10:37:00Images acquired, not reported on this accession number. [facility] UgqkifnwzxWGCNRLMAMH0968-58-81 09:25:000.2[facility] BBBRPSZXVY3854-63-95 09:25:001.3[facility] DepxpvvOGMCZHZCRY6292-02-74 09:25:00 24.7[facility] NlgjkghCAGMLEODBS7211-79-78 09:25:0010.0[facility]annHEMATOLOGY 2017-10-15 09:25:003.6[facility] RbipafaFOJXMYJMQI0039-74-18 09:25:001.5[facility] AnancceSHGUBGPAPI3824-21-72 09:25:0063.3[facility] ZmjedoaOKKJRQUYQD6927-85-08 09:25:000.7[facility] ExevvyuTYJBKWPVDX8016-73-44 09:25:009.2[facility] [place] KEBRQSYHZW4668-96-62 09:25:000.1[facility] LsdgksaFECBMNOLCJ9705-95-07 09:25:00 13.0[facility] RnvzhpfOYXDRIZTRU4062-16-84 09:25:0085.8[facility]annHEMATOLOGY 2017-10-15 09:25:00 Test Item Value Reference Range Interpretation Comments MCH (test code = MCH) 28.6 pg 27.0-31.0 [facility] FpdcrqwCXIVXJIJDP4507-73-14 09:25:0038.9[facility]annHEMATOLOGY 2017-10-15 09:25:0033.3[facility] WppiymjTLWWCRZNBE9799-16-43 09:25:0013.6[facility] IfuztitNWCDWKGCKB3158-21-62 09:25:34691Nwadbavj YxtbpyzTZGUYSZKNA0774-38-44 09:25:008.9[facility] IhkqgzmTYTIQLIFOP1570-60-29 09:25:004.53[facility] WJENRWJAPC3874-89-09 09:25:0014.6[facility]annSPECIAL KVQKJNTJB2178-89-91 09:25:006.1[facility]annURINE AND KGAKO3817-40-16 18:29:006[facility] URINE AND GWTYV7689-89-04 18:29:003[facility] AND YVMFL9335-69-50 18:29:00Negative *NA*(10/14/17 1:29 PM)[facility] QVHQA2032-34-19 18:29:00Yellow *NA*(10/14/17 1:29 PM)[facility] OZMSS9571-60-99 18:29:00Negative (10/14/17 1:29 PM)[facility] QMAOO8507-30-12 18:29:00Negative (10/14/17 1:29 PM)[facility] PNSGY4763-75-72 18:29:00Negative (10/14/17 1:29 PM)[facility] FNALK9594-73-13 18:29:004.0[facility] DOTQE7427-29-07 18:29:00Clear (10/14/17 1:29 PM)[facility] YQVZG6505-84-77 18:29:00 Test Item Value Reference Range Interpretation Comments UA pH (test code = UA pH) 6.5 1 5.0-8.0 [facility] HUCXF6761-97-77 18:29:00 Test Item Value Reference Range Interpretation Comments UA Spec Grav (test code = UA Spec 1.023 1 Grav) [facility]annCHEM YHHZI4281-62-89 08:44:00 Test Item Value Reference Range Interpretation Comments B/C Ratio (test code = B/C Ratio) 13 1 6-25 [facility]annCHEM VIMXZ5897-29-46 08:44:004.1[facility]annCHEM PANEL 2017-10-14 08:44:0013.2[facility]annCHEM XQNTX8996-41-28 08:44:00 Test Item Value Reference Range Interpretation Comments A/G Ratio (test code = A/G Ratio) 0.8 1 0.7-1.6 [facility]annCHE[facility] TBLQA6682-74-00 08:44:0096[facility]annCHEM PANEL 2017-10-14 08:44:000.6[facility]annCHEM KCWYN7673-53-94 08:44:0078[facility]annCHEM DGKSV1051-12-23 08:44:008.4[facility]annCHEM SBNZI7958-84-09 08:44:003.1[facility]annCHE[facility] SDIVF7233-57-87 08:44:007.2[facility]annCHEM XOWYB3500-11-19 08:44:0038[facility]annCHEM CDXKC3648-04-45 08:44:0037 [facility]annCHE[facility] QEJGU8563-14-85 08:44:86453Wsbhpicb HermannCHEM PANEL 2017-10-14 08:44:0025[facility]annCHEM BXIYH3393-54-62 08:44:55107Usewhpjc HermannCHEM BZMOJ8294-83-24 08:44:000.99[facility]annCHEM WTOCH1268-42-14 08:44:0013[facility]annCHEM VIUPG5669-76-05 08:44:004.2[facility]annCHEM NIVXG9631-51-03 08:44:68667Rziuhjwl QenhyzzNKOIKMAPYC4152-17-40 08:44:59784 [facility] WvokwbfEYTVDXWEUN0941-62-40 08:44:0013.9[facility]annHEMATOLOGY 2017-10-14 08:44:0016.0[facility] PabonueXSIVWELYHA6152-16-96 08:44:0041.0[facility] BosxbzaTFOKPVHHOA8727-74-70 08:44:0013.7[facility] NuczbbpYLFLFEYCPB6068-49-10 08:44:004.78[facility] EqyvhyzJDFEUBKMYX1179-26-67 08:44:0033.5[facility] MMGLXJCYUU4834-10-30 08:44:00 Test Item Value Reference Range Interpretation Comments MCH (test code = MCH) 28.7 pg 27.0-31.0 [facility] OpmihpiMDIZVZXFXB8435-48-09 08:44:0085.7[facility]annHEMATOLOGY 2017-10-14 08:44:008.8[facility] KabkhkfLTDPLGXWIM7639-81-67 08:44:002.1[facility] CjdkzqvJLNWXIBIYN6750-38-87 08:44:001.9[facility] RkcdnxrDBPGULHLVP6015-69-45 08:44:0075.2[facility] ScnnqrkNZHESWYWWR4866-70-05 08:44:0012.0[facility] EDQHTNDQIC9336-07-02 08:44:000.2[facility] ZmzolvlUPKLONWPZY5794-76-99 08:44:00 11.8[facility] ZnkehabJSJXSDSTEH5767-17-04 08:44:0012.8[facility] HermannCARDIAC DDWXJVX7467-11-63 10:58:00<0.02[facility] OpcfizgAINCGXKAXO3441-57-28 10:58:00 14.3[facility] LirudueXVKMELFION4460-40-50 10:58:0042.4[facility]annHEMATOLOGY 2017-10-13 07:14:00 Test Item Value Reference Range Interpretation Comments K-time Rapid (test code = K-time 2.1 min 0.6-2.3 Rapid) [facility] OwvnggpLQCVYBIKOL0153-86-49 07:14:00 Test Item Value Reference Range Interpretation Comments R-time Rapid (test code = R-time 0.6 min 0.4-0.7 Rapid) [facility] BkahhvsTYEVUOJAHS2891-42-27 07:14:00 Test Item Value Reference Range Interpretation Comments Split Point Rapid (test code = Split 0.5 min Point Rapid) [facility] ThhyceyQIBMKAGKJE1247-27-48 07:14:00 Test Item Value Reference Range Interpretation Comments ACT (TEG) Rapid (test code = ACT (TEG) 105 s 86-118 Rapid) [facility] GovetajJOHCPFYXKV0774-04-47 07:14:001.3[facility]annHEMATOLOGY 2017-10-13 07:14:006.6[facility] OeoptgwHDFKMZONXT7047-23-23 07:14:00 Test Item Value Reference Range Interpretation Comments Max Amplitude Rapid (test code = Max 57 mm 52-71 Amplitude Rapid) [facility] KeegrrvQWJJHDMLPZ4963-27-25 07:14:00 Test Item Value Reference Range Interpretation Comments Angle Rapid (test code = Angle 68 degrees 64-80 Rapid) [facility] EAHFRPP8381[facility]49-93 04:58:00Negative (10/12/17 11:58 PM) [facility] HermannCHEM THHOJ6727-73-92 04:58:001.6[facility] HermannELECTROLYTES 2017-10-13 04:58:0011.0[facility] QfhyjstVIKEGNZCFYLJ4042-82-96 04:58:00683 [facility] PzseyadBEFFSYXJOVWR4994-69-29 04:58:0091[facility] HermannELECTROLYTES 2017-10-13 04:58:009[facility] FhfzdydRHUEMJIGIVGX4578-51-78 04:58:001.03[facility] LltnqzbWHROEEPPGYJE8306-16-98 04:58:86735Vmnyszvb BlznzqbJXHHUTPADMYZ1124-89-10 04:58:004.0[facility] MnxmfxnHBMDPRUIOEKY7797-09-13 04:58:28564Eprsnnhg [facility] HZMTMXPMSNGC9635-10-26 04:58:0026[facility] FmfbkwxYWDHRUEPJWOE3856-28-20 04:58:00 8.7[facility] NrdceizEKVYTTLLPW4196-19-38 04:58:008.8[facility]annHEMATOLOGY 2017-10-13 04:58:28256Qhdiihdc GczobzxQNBZPIAYEI9148-33-24 04:58:00 Test Item Value Reference Range Interpretation Comments MCH (test code = MCH) 28.5 pg 27.0-31.0 [facility] IigqcafNIKSXOVXBK6132-76-87 04:58:0086.1[facility]annHEMATOLOGY 2017-10-13 04:58:0033.1[facility] OhxnrpeTPKNVOXPSG4285-01-47 04:58:0013.6[facility] XkveeveGPXICVIQEX8724-28-94 04:58:005.35[facility] WsutzvxMCKUXXBQDI8791-32-69 04:58:0016.9[facility] OtzyrzhQGMIGGEDNB8529-47-87 04:58:00Normal (10/12/17 11:58 PM)[facility] PdkkortBZYZJQMSIA4032-49-58 04:58:0078.1[facility] HermannHEMATOLOGY 2017-10-13 04:58:00Normal (10/12/17 11:58 PM)[facility] MixlphsASEPZNTDUF0520-96-97 04:58:0013.2[facility] WspfwcvFFAZYSRTVD9780-31-81 04:58:002.1[facility] ECRWMHNYTK7352-80-66 04:58:000.1[facility] ZvdtqagKPJFYJEEDE9339-48-23 04:58:001.5 [facility] AninequDUXFHAULZC5880-16-68 04:58:000.5[facility] HermannHEMATOLOGY 2017-10-13 04:58:009.1[facility] SrmdahkSWXLGJYKEF5990-16-38 04:58:000.1[facility] GvjrdyqHLFIIAZDYP6331-51-08 04:58:0012.2[facility]
[2020-02-06] MEDS ORDERED: NA CHLORIDE 0.9% 500 ML ONE (04:52)
[2020-02-06] MEDS ORDERED: MEPERIDINE HCL 50 MG/ML ONE (04:52)
--- NOTE | 2020-02-06 05:55 | EDPHYS ---
Physician Documentation [facility] Name: Nader Trejo Jr Age: 59 yrs Sex: Male : 1960 Arrival Date: 02/06/2020 Time: 04:17 Bed 5 Private MD: ED Physician Miles Jones HPI: 02/05 04:32 This 59 yrs old Black Male presents to ER via Wheelchair with complaints of Headache, rn Nose Bleed. 04:32 The patient complains of pain to the top of head and forehead. The patient describes rn the headache as aching. Onset: The symptoms/episode began/occurred this morning. Associated signs and symptoms: Pertinent positives: nose bleed, Pertinent negatives: altered mental status, fever, neck stiffness, vision changes, vision loss, vomiting, weakness, vertigo. Severity of symptoms: At its worst the pain was moderate, "similar to past headaches", in the emergency department the pain is unchanged. The symptoms are alleviated by nothing. the symptoms are aggravated by nothing. The patient has experienced similar episodes in the past. Reports hx of headaches and this one is similar. reports woke him up from sleep this AM, also had brief nosebleed that has now resolved. Reports had been sneezing but no trauma. No focal neuro complaint. Reports long time smoker. No chest pain or sob. . Historical: - Allergies: 04:27 No Known Allergies; sg - Home Meds: 04:27 levothyroxine oral [Active]; Lisinopril Oral [Active]; sg - PMHx: 04:27 BPH; COPD; Hypothyroidism; sg 04:30 Hypertension; sg - Immunization history:: Adult Immunizations up to date. - Social history:: Smoking status: Patient reports the use of cigarette tobacco products, smokes one pack cigarettes per day. - Family history:: not pertinent. - Hospitalizations: : No recent hospitalization is reported. ROS: 04:32 Constitutional: Negative for fever, chills, and weight loss, ENT: + nose bleed rn anesthesiology: Negative for chest pain, palpitations, and edema, Respiratory: Negative for shortness of breath, cough, wheezing, and pleuritic chest pain, Abdomen/GI: Negative for abdominal pain, nausea, vomiting, diarrhea, and constipation, MS/Extremity: Negative for injury and deformity, Skin: Negative for injury, rash, and discoloration, Neuro: Negative for weakness, numbness, tingling, and seizure. Exam: 04:32 Constitutional: This is a well developed, well nourished patient who is awake, alert, rn and in no acute distress. Head/Face: Normocephalic, atraumatic. ENT: No active bleeding noted. Neck: Trachea midline, no masses palpated, and no cervical lymphadenopathy. Supple, full range of motion without nuchal rigidity, or vertebral point tenderness. No Meningismus. Cardiovascular: Regular rate and rhythm. No pulse deficits. Respiratory: Speaking full sentences. No increased work of breathing, no retractions or nasal flaring. Abdomen/GI: soft, non-tender Skin: Warm, dry MS/ Extremity: Pulses equal, no cyanosis. Neurovascular intact. Full, normal range of motion. Equal circumference. Neuro: Awake and alert, GCS 15, oriented to person, place, time, and situation. Cranial nerves II-XII grossly intact. Motor strength 5/5 in all extremities. Sensory grossly intact. Cerebellar exam normal. Vital Signs: 04:24 BP 148 / 100; Pulse 77; Resp 18; Temp 97.7; Pulse Ox 100% ; Weight 94.35 kg; Height 5 sg ft. 10 in. (177.80 cm); Pain 10/10; 05:29 BP 151 / 101; Pulse 78; Resp 18; Pulse Ox 94% on R/A; lp1 06:01 BP 164 / 97; Pulse 78; Resp 18; Pulse Ox 100% on R/A; lp1 04:24 Body Mass Index 29.85 (94.35 kg, 177.80 cm) [place] Coma Score: 05:51 Eye Response: spontaneous(4). Verbal Response: oriented(5). Motor Response: obeys rn commands(6). Total: 15. MDM: 04:20 Patient medically screened. rn 05:51 Differential diagnosis: hypertensive headache, migraine, neoplasm, tension headache, rn vasomotor headache. Data reviewed: vital signs, nurses notes, radiologic studies, CT scan, and as a result, I will discharge patient. Counseling: I had a detailed discussion with the patient and/or guardian regarding: the historical points, exam findings, and any diagnostic results supporting the discharge/admit diagnosis, radiology results, the need for outpatient follow up, to return to the emergency department if symptoms worsen or persist or if there are any questions or concerns that arise at home. Counseling: I had a detailed discussion with the patient and/or guardian regarding: smoking cessation. Response to treatment: the patient's symptoms have markedly improved after treatment, and as a result, I will discharge patient. Special discussion: I discussed with the patient/guardian in detail that at this point there is no indication for admission to the hospital. It is understood, however, that if the symptoms persist or worsen the patient needs to return immediately for re-evaluation. Based on the history and exam findings, there is no indication for further emergent testing or inpatient evaluation. I discussed with the patient/guardian the need to see the primary care provider for further evaluation of the symptoms. ED course: CT head without acute findings, BP improved, normal neuro exam, will dc home with pcp f/u and counseled regarding need to stop smoking.. 02/05 04:32 Order name: CT Head Brain wo Cont rn 02/05 04:32 Order name: IV Start; Complete Time: 05:11 rn Administered Medications: 05:14 Drug: Demerol 25 mg Route: IVP; Site: right antecubital; lp1 05:29 Follow up: Response: Marked relief of symptoms; Pain is decreased lp1 05:15 Drug: NS 0.9% 500 ml Route: IV; Rate: bolus; Site: right antecubital; lp1 06:25 Follow up: IV Status: Completed infusion; IV Intake: 400ml lp1 Disposition: 02/06/20 05:54 Discharged to Home. Impression: Headache, Epistaxis, Hypertension. - Condition is Stable. - Discharge Instructions: Nosebleed, Adult, General Headache Without Cause, Hypertension. - Medication Reconciliation Form, Thank You Letter, Antibiotic Education, Prescription Opioid Use form. - Follow up: Private Physician; When: As needed; Reason: Recheck today's complaints, Re-evaluation by your physician. - Problem is new. - Symptoms have improved. Signatures: Dispatcher [employer] EDMS Socrates Unger RN RN sg Nieto, Roman, MD MD rn Pena, Laura, RN RN lp1 Corrections: (The following items were deleted from the chart) 06:25 05:54 02/06/2020 05:54 Discharged to Home. Impression: Headache; Epistaxis; lp1 Hypertension. Condition is Stable. Forms are Medication Reconciliation Form, Thank You Letter, Antibiotic Education, Prescription Opioid Use. Follow up: Private Physician; When: As needed; Reason: Recheck today's complaints, Re-evaluation by your physician. Problem is new. Symptoms have improved. rn
--- NOTE | 2020-02-06 05:55 | ER ---
Nurse's Notes [facility] Name: Nader Trejo Jr Age: 59 yrs Sex: Male : 1960 Arrival Date: 02/06/2020 Time: 04:17 Bed 5 Private MD: Diagnosis: Headache;Epistaxis;Hypertension Presentation: 02/05 04:24 Chief complaint: Patient's son or daughter states: He said that about an hour ago his sg head was hurting a 10/10, then he had a nose bleed for about 30 mins and then the bleeding was controlled, pt states having dizziness as well, denies visual changes, denies n/v/fever at this time. Coronavirus screen: Client denies travel out of the [place] in the last 14 days. At this time, the client does not indicate any symptoms associated with coronavirus-19. Ebola Screen: Patient negative for fever greater than or equal to 101.5 degrees Fahrenheit, and additional compatible Ebola Virus Disease symptoms Patient denies exposure to infectious person. Patient denies travel to an Ebola-affected area in the 21 days before illness onset. No symptoms or risks identified at this time. Initial Sepsis Screen: Does the patient meet any 2 criteria? No. Patient's initial sepsis screen is negative. Initial Sepsis Screen: Does the patient have a suspected source of infection? No. Patient's initial sepsis screen is negative. Risk Assessment: Do you want to hurt yourself or someone else? Patient reports no desire to harm self or others. Onset of symptoms was February 06, 2020. Care prior to arrival: None. Transition of care: patient was not received from another setting of care. 04:24 Acuity: BING 3 sg 04:24 Method Of Arrival: Wheelchair sg Triage Assessment: 04:56 Headache History: The patient has had previous headaches and this one is similar to lp1 previous episodes. Pain: Pain began suddenly, 1 hour ago. Also complains of photophobia. Historical: - Allergies: 04:27 No Known Allergies; sg - Home Meds: 04:27 levothyroxine oral [Active]; Lisinopril Oral [Active]; sg - PMHx: 04:27 BPH; COPD; Hypothyroidism; sg 04:30 Hypertension; sg - Immunization history:: Adult Immunizations up to date. - Social history:: Smoking status: Patient reports the use of cigarette tobacco products, smokes one pack cigarettes per day. - Family history:: not pertinent. - Hospitalizations: : No recent hospitalization is reported. Screenin:55 Abuse screen: Denies threats or abuse. Denies injuries from another. Nutritional lp1 screening: No deficits noted. Tuberculosis screening: No symptoms or risk factors identified. Fall Risk None identified. Assessment: 04:54 General: Appears in no apparent distress. Behavior is appropriate for age. Pain: lp1 Complains of pain in head Pain currently is 8 out of 10 on a pain scale. Quality of pain is described as pressure. Neuro: Level of Consciousness is awake, alert, obeys commands, Oriented to person, place, time, situation, Reports headache photophobia. Cardiovascular: Patient's skin is warm and dry. Respiratory: Respiratory effort is even, unlabored. GI: No signs and/or symptoms were reported involving the gastrointestinal system. : No signs and/or symptoms were reported regarding the genitourinary system. EENT: No signs and/or symptoms were reported regarding the EENT system. Derm: Skin is intact, Skin is dry, Skin is normal. Musculoskeletal: No deficits noted. 05:29 Reassessment: Patient states headache decreased at this time. lp1 06:25 Reassessment: Patient is alert, oriented x 3, equal unlabored respirations, skin lp1 warm/dry/pink. Patient states feeling better. Patient states symptoms have improved. Vital Signs: 04:24 BP 148 / 100; Pulse 77; Resp 18; Temp 97.7; Pulse Ox 100% ; Weight 94.35 kg; Height 5 sg ft. 10 in. (177.80 cm); Pain 10/10; 05:29 BP 151 / 101; Pulse 78; Resp 18; Pulse Ox 94% on R/A; lp1 06:01 BP 164 / 97; Pulse 78; Resp 18; Pulse Ox 100% on R/A; lp1 04:24 Body Mass Index 29.85 (94.35 kg, 177.80 cm) sg Follett Coma Score: 05:51 Eye Response: spontaneous(4). Verbal Response: oriented(5). Motor Response: obeys rn commands(6). Total: 15. ED Course: 04:17 Patient arrived in ED. bp1 04:20 Miles Jones MD is Attending Physician. rn 04:26 Triage completed. sg 04:26 Arm band placed on. sg 04:38 Megan Rodriguez, [place] is Primary Nurse. lp1 04:50 Radiology exam delayed due to Patient is currently having an IV started. Patient needs kw1 pain medication prior to being transported to CT for exam. 04:54 Missed attempt(s): 22 gauge in right antecubital area. lp1 04:56 Patient has correct armband on for positive identification. lp1 05:00 Radiology exam delayed due to Still unable to be transported to the CT Dept. for exam. kw1 Nurse (Megan Rodriguez, [place]) will call when the patient is ready. 05:10 Inserted saline lock: 22 gauge in right forearm, using aseptic technique. Missed ds4 attempt(s): 22 gauge in left forearm. Bleeding controlled, band aid applied, catheter tip intact. 05:26 CT Head Brain wo Cont In Process Unspecified. EDMS 06:01 No provider procedures requiring assistance completed. lp1 06:24 IV discontinued, No redness/swelling at site. Pressure dressing applied. lp1 Administered Medications: 05:14 Drug: Demerol 25 mg Route: IVP; Site: right antecubital; lp1 05:29 Follow up: Response: Marked relief of symptoms; Pain is decreased lp1 05:15 Drug: NS 0.9% 500 ml Route: IV; Rate: bolus; Site: right antecubital; lp1 06:25 Follow up: IV Status: Completed infusion; IV Intake: 400ml lp1 Intake: 06:25 IV: 400ml; Total: 400ml. lp1 Outcome: 05:54 Discharge ordered by . rn 06:25 Discharged to home ambulatory, with family. lp1 06:25 Condition: good 06:25 Discharge instructions given to patient, Instructed on discharge instructions, follow up and referral plans. Demonstrated understanding of instructions, follow-up care. 06:25 Patient left the ED. lp1 Signatures: Dispatcher [employer] EDMS Socrates Unger RN RN sg Nieto, Roman, MD MD rn Pena, Laura, RN RN lp1 Boubacar Isaac ds4 Patricia Rodriguez kw1 Yesenia Anderson bp1 Corrections: (The following items were deleted from the chart) 05:44 04:24 Pulse 77bpm; Resp 18bpm; Pulse Ox 100%; Temp 97.7F; 94.35 kg; Height 5 ft. 10 sg in.; BMI: 29.8; Pain 10; sg
[2020-02-06 06:37] VITALS: TEMP 97.7
[2020-02-06 06:39] VITALS: BP 164/97; O2SAT 100
--- NOTE | 2020-02-06 21:08 | RAD REPORT ---
EXAM DESCRIPTION: CT Head Without Intravenous Contrast CLINICAL HISTORY: The patient is 59 years old and is Male; HEADACHE TECHNIQUE: Axial computed tomography images of the head/brain without intravenous contrast. Sagitt al and coronal reformatted images were created and reviewed. This CT exam was performed using one o r more of the following dose reduction techniques: automated exposure control, adjustment of the mA and/or kV according to patient size, and/or use of iterative reconstruction technique. COMPARISON: No relevant prior studies available. FINDINGS: Brain: Unremarkable. No hemorrhage. No significant white matter disease. No edema. Ventricles: Unremarkable. No ventriculomegaly. Bones/joints: No acute skull fracture. Old fracture left medial orbital wall. Soft tissues: Unremarkable. Sinuses: Unremarkable as visualized. No acute sinusitis. Mastoid air cells: No significant mastoid fluid. IMPRESSION: No acute intracranial findings. No hemorrhage. Electronically signed by: Amira Brenner MD 02/06/2020 5:32 AM CDT Due to temporary technical issues with the PACS/Fluency reporting system, reports are being signed by the in house radiologist without review as a courtesy to ensure prompt reporting. The interpreting r adiologist is fully responsible for the content of the report.
== END 2020-02-06 06:25 | disposition home or self-care (01) ==
LOC: ER 04:15
DX: R04.0 Epistaxis (principal); I10 Essential (primary) hypertension; E03.9 Hypothyroidism, unspecified; N40.0 Benign prostatic hyperplasia without lower urinary tract symptoms; F17.210 Nicotine dependence, cigarettes, uncomplicated
CPT/HCPCS: 96361; 70450; 96374; 99283; J2175; J7040

== ENCOUNTER 2021-07-04 16:47 | Emergency (ER) | payer OTHER ==
--- OUTSIDE RECORDS SUMMARY | 2021-07-04 16:53 | XMS REPORT | Continuity of Care Document ---
:1960 Author Organization [facility] t Address [address] [place] [address] Care Team Providers Name Role Phone [place] Primary Care Physician DIMA Attending Clinician Unavailable John ANDERS, T Attending Clinician Unavailable Only, Db Test Attending Clinician Unavailable Nayan FNP Attending Clinician NAYAN Attending Clinician Unavailable Dima HOFFMAN Attending Clinician Carleen Attending Clinician Unavailable DEREK Attending Clinician Unavailable Derek HOFFMAN Attending Clinician Doctor Unassigned, Name Attending Clinician Unavailable GREGG Attending Clinician Unavailable Carleen Admitting Clinician Unavailable Payers Payer Name Policy Type Policy Number Effective Date Expiration Date [facility] [id number] 2018 COMMUNITY PLAN - 00:00:00 [facility] (MEDICAID HMO) Problems Condition Condition Condition Status Onset Resolution Last Treating Co mments Source Name Details Category Date Date Treatment Clinician Date No known No known Disease Unive rs active active ity of problems problems [facility] Complete Complete Problem Active Unive rs disruption disruption [place] [facility] [facility] Symphysis Symphysis Problem Active Uni vers [place] [facility] [facility] Allergies, Adverse Reactions, Alerts Allergy Allergy Status Severity Reaction(s) Onset Inactive Treating Comm ents Source Name Type Date Date Clinician NO KNOWN Drug Active Univers ALLERGIE Class ity of S [facility] Social History Social Habit Start Date Stop Date Quantity Comments Source Exposure to Not sure [facility] SARS-CoV-2 (event) [facility] History of tobacco Cigarette Smoker University of use [facility] Cigarettes smoked 2021-06-04 2021-06-04 Univers ity of current (pack per 00:00:00 00:00:00 ) - Reported Branch Tobacco use and 2021-06-04 2021-06-04 Never used Universit y of exposure 00:00:00 00:00:00 [facility] Sex [birth year] At [birth year] Universit y of 00:00:00 00:00:00 [facility] Smoking Status Start Date Stop Date Source Heavy Tobacco Smoker Tip or Skip Outreach Program Unknown if ever smoked [facility] y [facility] Current every day smoker 2021-06-04 00:00:00 Uni versity [facility] Medications Ordered Filled Start Stop Current Ordering Indication Dosage Frequency Signature Comments Components Source Medication Medication Date Date Medication? Clinician (SIG) Name Name azithromyci Yes azithromyc Univers n 500 mg 1-10 in 500 mg ity of tablet 18:34: tablet [address] cetirizine Yes cetirizine U nivers 10 mg 1-10 10 mg ity of tablet 18:34: tablet [place] [address] TAKE 1 Medical TABLET BY Branch MOUTH EVERY DAY NEEDED FOR 30 DAYS lisinopriL Yes lisinopril U nivers 20 mg 1-10 20 mg ity of tablet 18:34: tablet [place] [address] TAKE 1 Medical TABLET BY Branch MOUTH EVERY DAY metFORMIN Yes metformin Uni vers 500 mg 1-10 500 mg ity of tablet 18:34: tablet [place] [address] Take 1 Medical tablet Branch twice a day by oral route for 30 days. nicotine 14 Yes nicotine Un vivek mg/24 hr 1-10 14 mg/24 ity of patch 18:34: hr daily [place] [address] transderma Medical l patch Branch APPLY 1 PATCH EVERY DAY FOR 30 DAYS pantoprazol Yes pantoprazo Univers e 40 mg EC 1-10 le 40 mg ity o f tablet 18:34: tablet,[address] TAKE 1 TABLET BY MOUTH EVERY DAY tamsulosin Yes tamsulosin U nivers 0.4 mg 24 1-10 0.4 mg ity of hr capsule 18:34: [place] [address] valACYclovi Yes valacyclov Univers r 500 mg 1-10 ir 500 mg ity of tablet 18:34: tablet [place] [address] TAKE 1 Medical TABLET Branch TWICE A DAY BY ORAL ROUTE FOR 3 DAYS. azithromyci Yes azithromyc Univers n 500 mg 1-10 in 500 mg ity of tablet 18:34: tablet [address] cetirizine Yes cetirizine U nivers 10 mg 1-10 10 mg ity of tablet 18:34: tablet [place] [address] TAKE 1 Medical TABLET BY Branch MOUTH EVERY DAY NEEDED FOR 30 DAYS lisinopriL Yes lisinopril U nivers 20 mg 1-10 20 mg ity of tablet 18:34: tablet [place] [address] TAKE 1 Medical TABLET BY Branch MOUTH EVERY DAY metFORMIN Yes metformin Uni vers 500 mg 1-10 500 mg ity of tablet 18:34: tablet [place] [address] Take 1 Medical tablet Branch twice a day by oral route for 30 days. nicotine 14 Yes nicotine Un vivek mg/24 hr 1-10 14 mg/24 ity of patch 18:34: hr daily [place] [address] [facility] [place] APPLY 1 PATCH EVERY DAY FOR 30 DAYS pantoprazol Yes pantoprazo Univers e 40 mg EC 1-10 le 40 mg ity o f tablet 18:34: tablet,[address] TAKE 1 TABLET BY MOUTH EVERY DAY tamsulosin Yes tamsulosin U nivers 0.4 mg 24 1-10 0.4 mg ity of hr capsule 18:34: capsule [place] valACYclovi Yes valacyclov Univers r 500 mg 1-10 ir 500 mg ity of tablet 18:34: tablet [place] [address] TAKE 1 Medical TABLET Branch TWICE A DAY BY ORAL ROUTE FOR 3 DAYS. azithromyci Yes azithromyc Univers n 500 mg 1-10 in 500 mg ity of tablet 18:34: tablet [place] [address] Medical Branch cetirizine Yes cetirizine U nivers 10 mg 1-10 10 mg ity of tablet 18:34: tablet [place] [address] TAKE 1 Medical TABLET BY Branch MOUTH EVERY DAY NEEDED FOR 30 DAYS lisinopriL Yes lisinopril U nivers 20 mg 1-10 20 mg ity of tablet 18:34: tablet [place] [address] TAKE 1 Medical TABLET BY Branch MOUTH EVERY DAY metFORMIN Yes metformin Uni vers 500 mg 1-10 500 mg ity of tablet 18:34: tablet [place] [address] Take 1 Medical tablet Branch twice a day by oral route for 30 days. nicotine 14 Yes nicotine Un vivek mg/24 hr 1-10 14 mg/24 ity of patch 18:34: hr daily [place] [address] transderma Medical l patch Branch APPLY 1 PATCH EVERY DAY FOR 30 DAYS pantoprazol Yes pantoprazo Univers e 40 mg EC 1-10 le 40 mg ity o f tablet 18:34: tablet,del [place] [address] ayed Medical release [place] TAKE 1 TABLET BY MOUTH EVERY DAY tamsulosin Yes tamsulosin U nivers 0.4 mg 24 1-10 0.4 mg ity of hr capsule 18:34: capsule [address] valACYclovi Yes valacyclov Univers r 500 mg 1-10 ir 500 mg ity of tablet 18:34: tablet [place] [address] TAKE 1 Medical TABLET Branch TWICE A DAY BY ORAL ROUTE FOR 3 DAYS. azithromyci Yes azithromyc Univers n 500 mg 1-10 in 500 mg ity of tablet 18:34: tablet [address] cetirizine Yes cetirizine U nivers 10 mg 1-10 10 mg ity of tablet 18:34: tablet [place] [address] TAKE 1 Medical TABLET BY Branch MOUTH EVERY DAY NEEDED FOR 30 DAYS lisinopriL Yes lisinopril U nivers 20 mg 1-10 20 mg ity of tablet 18:34: tablet [place] [address] TAKE 1 Medical TABLET BY Branch MOUTH EVERY DAY metFORMIN Yes metformin Uni vers 500 mg 1-10 500 mg ity of tablet 18:34: tablet [place] [address] Take 1 Medical tablet Branch twice a day by oral route for 30 days. nicotine 14 Yes nicotine Un vivek mg/24 hr 1-10 14 mg/24 ity of patch 18:34: hr daily [place] [address] transderma Medical l patch Branch APPLY 1 PATCH EVERY DAY FOR 30 DAYS pantoprazol Yes pantoprazo Univers e 40 mg EC 1-10 le 40 mg ity o f tablet 18:34: tablet,del [place] [address] ay Medical release [place] TAKE 1 TABLET BY MOUTH EVERY DAY tamsulosin Yes tamsulosin U nivers 0.4 mg 24 1-10 0.4 mg ity of hr capsule 18:34: [place] valACYclovi Yes valacyclov Univers r 500 mg 1-10 ir 500 mg ity of tablet 18:34: tablet [place] [address] TAKE 1 Medical TABLET Branch TWICE A DAY BY ORAL ROUTE FOR 3 DAYS. azithromyci Yes azithromyc Univers n 500 mg 1-10 in 500 mg ity of tablet 18:34: tablet [address] cetirizine Yes cetirizine U nivers 10 mg 1-10 10 mg ity of tablet 18:34: tablet [place] [address] TAKE 1 Medical TABLET BY Branch MOUTH EVERY DAY NEEDED FOR 30 DAYS lisinopriL Yes lisinopril U nivers 20 mg 1-10 20 mg ity of tablet 18:34: tablet [place] [address] TAKE 1 Medical TABLET BY Branch MOUTH EVERY DAY metFORMIN Yes metformin Uni vers 500 mg 1-10 500 mg ity of tablet 18:34: tablet [place] [address] Take 1 Medical tablet Branch twice a day by oral route for 30 days. nicotine 14 Yes nicotine Un vivek mg/24 hr 1-10 14 mg/24 ity of patch 18:34: hr daily [place] [address] transderma Medical l patch Branch APPLY 1 PATCH EVERY DAY FOR 30 DAYS pantoprazol Yes pantoprazo Univers e 40 mg EC 1-10 le 40 mg ity o f tablet 18:34: tablet,del [address] Medical release [place] TAKE 1 TABLET BY MOUTH EVERY DAY tamsulosin Yes tamsulosin U nivers 0.4 mg 24 1-10 0.4 mg ity of hr capsule 18:34: [place] [facility] valACYclovi 2022-0 Yes valacyclov Univers r 500 mg 1-10 ir 500 mg ity of tablet 18:34: tablet [place] 43 TAKE 1 Medical TABLET Branch TWICE A DAY BY ORAL ROUTE FOR 3 DAYS. albuterol 2021-0 Yes [id number] 2{puff} Inhale 2 Univers 90 1-10 Puffs ity of mcg/actuati 00:00: every 6 [place] on inhaler 00 (six) Medical hours as Branch needed for Shortness of Breath. guaiFENesin 2021-0 Yes [id number] 400mg Take 1 Univers 400 mg 1-10 tablet by ity of tablet 00:00: mouth [place] 00 every 4 Medical (four) Branch hours as needed for Cough. benzonatate 2021-0 Yes [id number] 200mg Take 2 Univers 100 mg 1-10 capsules ity of capsule 00:00: by mouth [place] 00 every 8 Medical (eight) Branch hours as needed for Cough. albuterol 2021-0 Yes [id number] 2{puff} Inhale 2 Univers 90 1-10 Puffs ity of mcg/actuati 00:00: every 6 [place] on inhaler 00 (six) Medical hours as Branch needed for Shortness of Breath. guaiFENesin 2021-0 Yes [id number] 400mg Take 1 Univers 400 mg 1-10 tablet by ity of tablet 00:00: mouth [place] 00 every 4 Medical (four) Branch hours as needed for Cough. benzonatate 2021-0 Yes [id number] 200mg Take 2 Univers 100 mg 1-10 capsules ity of capsule 00:00: by mouth [place] 00 every 8 Medical (eight) Branch hours as needed for Cough. albuterol 2021-0 Yes [id number] 2{puff} Inhale 2 Univers 90 1-10 Puffs ity of mcg/actuati 00:00: every 6 [place] on inhaler 00 (six) Medical hours as Branch needed for Shortness of Breath. guaiFENesin 2021-0 Yes [id number] 400mg Take 1 Univers 400 mg 1-10 tablet by ity of tablet 00:00: mouth [place] 00 every 4 Medical (four) Branch hours as needed for Cough. benzonatate 2021-0 Yes [id number] 200mg Take 2 Univers 100 mg 1-10 capsules ity of capsule 00:00: by mouth [place] 00 every 8 Medical (eight) Branch hours as needed for Cough. albuterol 2021-0 Yes [id number] 2{puff} Inhale 2 Univers 90 1-10 Puffs ity of mcg/actuati 00:00: every 6 [place] on inhaler 00 (six) Medical hours as Branch needed for Shortness of Breath. guaiFENesin 2021-0 Yes [id number] 400mg Take 1 Univers 400 mg 1-10 tablet by ity of tablet 00:00: mouth [place] 00 every 4 Medical (four) Branch hours as needed for Cough. benzonatate 2021-0 Yes [id number] 200mg Take 2 Univers 100 mg 1-10 capsules ity of capsule 00:00: by mouth [place] 00 every 8 Medical (eight) Branch hours as needed for Cough. albuterol 2021-0 Yes [id number] 2{puff} Inhale 2 Univers 90 1-10 Puffs ity of mcg/actuati 00:00: every 6 [place] on inhaler 00 (six) Medical hours as Branch needed for Shortness of Breath. guaiFENesin 2021-0 Yes [id number] 400mg Take 1 Univers 400 mg 1-10 tablet by ity of tablet 00:00: mouth [place] 00 every 4 Medical (four) Branch hours as needed for Cough. benzonatate 2021-0 Yes [id number] 200mg Take 2 Univers 100 mg 1-10 capsules ity of capsule 00:00: by mouth [place] 00 every 8 Medical (eight) Branch hours as needed for Cough. cetirizine cetirizine No 1 Q1D cetirizine [place] 10 mg 10 mg 10 mg da tablet Take tablet Take tablet [facility] 1 tablet 1 tablet Take 1 al every day every day tablet Hea lth by oral by oral every day Outr eac route. route. by oral h route. Program clotrimazol clotrimazol No clotrimazo [place] e-betametha e-betametha le-betamet da sone 1 sone 1 hasone 1 [facility] %-0.05 % %-0.05 % %-0.05 % al topical topical topical Health cream APPLY cream APPLY cream Outreac TO THE TO THE APPLY TO h AFFECTED AFFECTED THE Program AND AND AFFECTED SURROUNDING SURROUNDING AND AREAS OF AREAS OF SURROUNDIN SKIN BY SKIN BY G AREAS OF TOPICAL TOPICAL SKIN BY ROUTE 2 ROUTE 2 TOPICAL TIMES PER TIMES PER ROUTE 2 DAY IN THE DAY IN THE TIMES PER MORNING AND MORNING AND DAY IN THE EVENING FOR EVENING FOR MORNING 2 WEEKS 2 WEEKS AND EVENING FOR 2 WEEKS [place] 400 [place] 400 No [facility] [place] mg-100 mg mg-100 mg 400 mg-100 da tablet TAKE tablet TAKE mg tablet [facility] ONE TABLET ONE TABLET TAKE ONE al BY MOUTH BY MOUTH TABLET BY He alth ONCE DAILY ONCE DAILY MOUTH ONCE Outreac FOR 28 DAYS FOR 28 DAYS DAILY FOR h 28 DAYS Program lisinopril lisinopril No lisinopril [place] 20 mg 20 mg 20 mg da tablet TAKE tablet TAKE tablet [facility] 1 TABLET BY 1 TABLET BY TAKE 1 al MOUTH EVERY MOUTH EVERY TABLET BY Health DAY DAY MOUTH Outreac EVERY DAY h Program metformin metformin No metformin [place] 500 mg 500 mg 500 mg da tablet TAKE tablet TAKE tablet [facility] 1 TABLET BY 1 TABLET BY TAKE 1 al MOUTH TWICE MOUTH TWICE TABLET BY Health A DAY A DAY MOUTH Outreac TWICE A h DAY Program pantoprazol pantoprazol No pantoprazo [place] 40 mg e 40 mg le 40 mg da tablet,trang tablet,trang tablet,del [facility] yed release yed release ayed a l TAKE 1 TAKE 1 release Health TABLET BY TABLET BY TAKE 1 Out reac MOUTH EVERY MOUTH EVERY TABLET BY h DAY DAY MOUTH Program EVERY DAY tamsulosin tamsulosin No tamsulosin [place] 0.4 mg 0.4 mg 0.4 mg da capsule capsule capsule [facility] p TAKE 1 TAKE 1 TAKE 1 al CAPSULE BY CAPSULE BY CAPSULE BY Health MOUTH EVERY MOUTH EVERY MOUTH Outreac DAY DAY EVERY DAY h Program valacyclovi valacyclovi No valacyclov [place] r 500 mg r 500 mg ir 500 mg da tablet TAKE tablet TAKE tablet [facility] 1 TABLET 1 TABLET TAKE 1 al TWICE A DAY TWICE A DAY TABLET Health BY ORAL BY ORAL TWICE A Outrea c ROUTE FOR 3 ROUTE FOR 3 DAY BY h DAYS. DAYS. ORAL ROUTE Program FOR 3 DAYS. Immunizations Ordered Immunization Filled Immunization Date Status Commen ts Source Name Name COVID-19 COVID-19 2020-08-11 Completed [place] (SARS-COV-2) (SARS-COV-2) 00:00:00 [facility] vaccine, unspecified vaccine, unspecified Health Outreach Program influenza, influenza, 2020-02-11 Completed [place] injectable, injectable, 15:26:17 [facility] quadrivalent, quadrivalent, Health preservative free preservative free Outreach Program pneumococcal pneumococcal 2020-01-13 Completed [place] conjugate PCV 13 conjugate PCV 13 00:00:00 Ep iscopal Health Outreach Program Tdap Tdap 2020-01-13 Completed [place] 00:00:00 [facility] pneumococcal pneumococcal 2017-10-14 Completed [place] polysaccharide PPV23 polysaccharide PPV23 00:00:00 [facility] zoster recombinant zoster recombinant Unknown Completed [place] [facility] Vital Signs Vital Name Observation Time Observation Value Comments Source BP Diastolic 2021-06-18 00:00:00 88 mm[Hg] [facility] Height 2021-06-18 00:00:00 66 [in_i] [facility] BMI (Body Mass 2021-06-18 00:00:00 30.6 kg/m2 [facility] Index) Health Outreach Program BP Systolic 2021-06-18 00:00:00 132 mm[Hg] [facility] Body Weight 2021-06-18 00:00:00 3032 [oz_av] [facility] Systolic blood 2021-06-05 00:36:00 128 mm[Hg] [facility] [place] [facility] Branch Diastolic blood 2021-06-05 00:36:00 90 mm[Hg] [facility] pressure [facility] Heart rate 2021-06-05 00:35:00 69 /min General acute hospital Body height 2021-06-05 00:35:00 167.6 cm General acute hospital Body weight 2021-06-05 00:35:00 86.456 kg General acute hospital BMI 2021-06-05 00:35:00 30.76 kg/m2 General acute hospital Oxygen saturation 2021-06-05 00:35:00 99 /min [facility] in Arterial blood Medical Br anch by Pulse oximetry BP Diastolic 2021-03-08 00:00:00 78 mm[Hg] [place] [facility] Height 2021-03-08 00:00:00 66 [in_i] [place] [facility] BMI (Body Mass 2021-03-08 00:00:00 29.6 kg/m2 [place] [facility] supervisor [facility] Index) Health Outreach Program BP Systolic 2021-03-08 00:00:00 112 mm[Hg] [place] [facility] Body Weight 2021-03-08 00:00:00 183.7 [lb_av] [place] [facility] BP Diastolic 2021-03-06 00:00:00 74 mm[Hg] [place] [facility] Height 2021-03-06 00:00:00 66 [in_i] [place] [facility] BMI (Body Mass 2021-03-06 00:00:00 29.2 kg/m2 [place] [facility] Index) [facility] Outreach Program BP Systolic 2021-03-06 00:00:00 112 mm[Hg] [place] [facility] Body Weight 2021-03-06 00:00:00 2899.2 [oz_av] [place] [facility] BP Diastolic 2020-12-04 00:00:00 71 mm[Hg] [place] [facility] Height 2020-12-04 00:00:00 66 [in_i] [place] [facility] BMI (Body Mass 2020-12-04 00:00:00 29.9 kg/m2 [place] [facility] Index) [facility] Outreach Program BP Systolic 2020-12-04 00:00:00 112 mm[Hg] [place] [facility] Body Weight 2020-12-04 00:00:00 2960 [oz_av] [place] [facility] Height 2020-10-03 00:00:00 66 [in_i] [place] [facility] BMI (Body Mass 2020-10-03 00:00:00 29.5 kg/m2 [place] [facility] Index) Health Outreach Program Body Weight 2020-10-03 00:00:00 183 [lb_av] [place] [facility] BP Diastolic 2020-09-04 00:00:00 82 mm[Hg] [place] [facility] Height 2020-09-04 00:00:00 66 [in_i] [place] [facility] BMI (Body Mass 2020-09-04 00:00:00 29.5 kg/m2 [place] [facility] Index) Health Outreach Program BP Systolic 2020-09-04 00:00:00 121 mm[Hg] [place] [facility] Body Weight 2020-09-04 00:00:00 2928 [oz_av] [place] [facility] BP Diastolic 2020-08-17 00:00:00 75 mm[Hg] [place] [facility] Height 2020-08-17 00:00:00 66 [in_i] [place] [facility] BMI (Body Mass 2020-08-17 00:00:00 29.2 kg/m2 [place] [facility] Index) [facility] Outreach Program BP Systolic 2020-08-17 00:00:00 113 mm[Hg] [place] [facility] Body Weight 2020-08-17 00:00:00 181.2 [lb_av] [place] [facility] BP Diastolic 2020-08-11 00:00:00 83 mm[Hg] [place] [facility] Height 2020-08-11 00:00:00 66 [in_i] [place] [facility] BMI (Body Mass 2020-08-11 00:00:00 30.1 kg/m2 [place] [facility] Index) [facility] Outreach Program BP Systolic 2020-08-11 00:00:00 105 mm[Hg] [place] [facility] Body Weight 2020-08-11 00:00:00 2985.6 [oz_av] [place] [facility] BP Diastolic 2020-02-25 00:00:00 78 mm[Hg] [place] [facility] Height 2020-02-25 00:00:00 66 [in_i] [place] [facility] BMI (Body Mass 2020-02-25 00:00:00 30 kg/m2 [place] [facility] Index) [facility] Outreach Program BP Systolic 2020-02-25 00:00:00 111 mm[Hg] [place] [facility] Body Weight 2020-02-25 00:00:00 2976 [oz_av] [place] [facility] BP Diastolic 2020-02-24 00:00:00 78 mm[Hg] [place] [facility] Height 2020-02-24 00:00:00 66 [in_i] [place] [facility] BMI (Body Mass 2020-02-24 00:00:00 29.9 kg/m2 [place] [facility] Index) [facility] Outreach Program BP Systolic 2020-02-24 00:00:00 117 mm[Hg] [place] [facility] Body Weight 2020-02-24 00:00:00 185 [lb_av] [place] [facility] BP Diastolic 2020-02-11 00:00:00 103 mm[Hg] [place] [facility] Height 2020-02-11 00:00:00 66 [in_i] [place] [facility] BMI (Body Mass 2020-02-11 00:00:00 30.8 kg/m2 [place] [facility] Index) [facility] Outreach Program BP Systolic 2020-02-11 00:00:00 149 mm[Hg] [place] [facility] Body Weight 2020-02-11 00:00:00 3056 [oz_av] [place] [facility] BP Diastolic 2020-01-13 00:00:00 90 mm[Hg] [place] [facility] Height 2020-01-13 00:00:00 66 [in_i] [place] [facility] BMI (Body Mass 2020-01-13 00:00:00 31 kg/m2 [place] [facility] Index) [facility] Outreach Program BP Systolic 2020-01-13 00:00:00 129 mm[Hg] [place] [facility] Body Weight 2020-01-13 00:00:00 3072 [oz_av] [place] [facility] BP Diastolic 2019-10-15 00:00:00 90 mm[Hg] [place] [facility] Height 2019-10-15 00:00:00 66 [in_i] [place] [facility] BMI (Body Mass 2019-10-15 00:00:00 31.5 kg/m2 [place] [facility] Index) [facility] Outreach Program BP Systolic 2019-10-15 00:00:00 117 mm[Hg] [place] [facility] Body Weight 2019-10-15 00:00:00 195 [lb_av] [place] [facility] BP Diastolic 2019-04-29 00:00:00 87 mm[Hg] [place] [facility] Height 2019-04-29 00:00:00 66 [in_i] [place] [facility] BMI (Body Mass 2019-04-29 00:00:00 32.6 kg/m2 [place] [facility] Index) [facility] Outreach Program BP Systolic 2019-04-29 00:00:00 130 mm[Hg] [place] [facility] Body Weight 2019-04-29 00:00:00 202.2 [lb_av] [place] [facility] BP Diastolic 2019-04-07 00:00:00 84 mm[Hg] [place] [facility] Height 2019-04-07 00:00:00 66 [in_i] [place] [facility] BMI (Body Mass 2019-04-07 00:00:00 33.1 kg/m2 [place] [facility] Index) [facility] Outreach Program BP Systolic 2019-04-07 00:00:00 126 mm[Hg] [place] [facility] Body Weight 2019-04-07 00:00:00 204.9 [lb_av] [place] [facility] BP Diastolic 2019-03-31 00:00:00 80 mm[Hg] [place] [facility] Height 2019-03-31 00:00:00 66 [in_i] [place] [facility] BMI (Body Mass 2019-03-31 00:00:00 32.9 kg/m2 [place] [facility] Index) [facility] Outreach Program BP Systolic 2019-03-31 00:00:00 140 mm[Hg] [place] [facility] Body Weight 2019-03-31 00:00:00 204 [lb_av] [place] [facility] Procedures Procedure Date / Time Performed Performing Clinician Sourc e REFERRAL- 2020-09-04 05:01:00 Doctor Unassigned, No [facility] REQUEST/RESPONSE Name Medical Branch LDCT, chest, for lung 2020-08-11 00:00:00 [place] [facility] cancer screening [facility] Outreach Program ELECTROCARDIOGRAM, 2020-08-11 00:00:00 [place] [facility] COMPLETE [facility] US, abdomen, complete 2019-04-29 00:00:00 [place] [facility] [U] XRAY PELVIS MIN 3 2018-01-16 00:00:00 [facility] [id number] Physicians [U] XRAY PELVIS MIN 3 2018-01-08 00:00:00 [facility] [id number] Physicians [U] XRAY PELVIS MIN 3 2017-11-28 00:00:00 [facility] [id number] Physicians Pelvis/hip Joint 2017-09-23 00:00:00 [place] [facility] Orthopedic Surgery [place] [facility] Plan of Care Planned Activity Planned Date Details Comments Source Future Appointment 2021-08-15 11:00:00 [place] [facility] [address] , [place] Program [id number] Encounters Start End Encounter Admission Attending Care Care Encounter Source Date/Time Date/Time Type Type Clinicians Facility Department ID 2021-07-30 2021-07-30 Outpatient Anai MUJICA TXDAVE [facility] [id number] P-20 Univers 10:30:00 10:30:00 BRANDI [id number] [facility] 2021-06-30 2021-06-30 Letter NELY Lopez [id number] Univers 00:00:00 00:00:00 (Out) Tracey Velarde MINH 350.1.13.10 it y of [facility] [id number] Miguelito as [phone] [address] 2021-06-29 2021-06-29 Laboratory Only, Ang Db Test [facility] 1.2.8 40.114 [id number] Univers 13:30:00 13:45:00 Only Yesenia Chaves [facility] 350.1.13.10 ity of [place] [id number] Miguelito as TEJAS?BLEA [phone] Ga dical EY [address] MEDICAL OFFICE BUILDING 2021-06-29 2021-06-29 Outpatient R [facility] [id number] Univers 13:30:00 13:30:00 [id number] ity [facility] 2021-06-29 2021-06-29 [facility] [id number] Univers 13:30:00 13:30:00 YESENIA ity o f [facility] 2021-06-25 2021-06-[address] [facility] [id number] P-20 Univers 10:30:00 10:30:00 BRANDI [id number] [facility] 2021-06-25 2021-06-25 Outpatient R [facility] [id number] Univers 10:30:00 10:30:00 BRANDI [facility] 2021-06-25 2021-06-25 Letter [facility] 1.2.840.114 [id number] Univers 00:00:00 00:00:00 (Out) Brandi PALENCIA 350.1.13.10 i ty [facility] 4.2.7.2.686 [place] PROF[place] [phone] Ga dical [facility] [address] BU[address]ING 2021-06-18 2021-06-18 Outpatient Obisesan_duyen DANG [facility] 107 [id number] [place] 05:39:00 05:39:00 sahara 67047 [facility] 2021-06-18 2021-06-18 Kathi [facility] [place] - [id number] Arun [place] 00:00:00 00:00:00 Adriana Galvin MD: [address] Ale[address] Ep[address] op [place] [facility] [place] [place] Outreac [address] h , Ph. Program 2021-06-16 2021-06-16 Outpatient Obisesan_ad [facility] 107 [place] 12:18:00 12:18:00 ekunbi [facility] 2021-06-05 2021-06-05 Letter JohnNELY 1.2.840.114 [id number] Univers 00:00:00 00:00:00 ([facility] [id number] it [facility] [id number] Miguelito as [phone] [address] 2021-06-04 2021-06-04 [facility]patient [facility] [id number] Univers 19:00:00 19:36:36 KENNETH [facility] 2021-06-04 2021-06-[address] [facility] 1.2.840.114 [id number] Univers 19:00:00 19:20:00 [facility] [id number] [facility] [id number] Miguelito as TEJAS?BLEA [phone] [address] MEDICAL OFFICE BUILDING 2021-03-08 2021-03-08 Outpatient Obisesan_ad [facility] 107 [place] 03:13:00 03:13:00 ekunbi 94515 [facility] 2021-03-08 2021-03-08 Enocurbano Rodasn [facility] [place] - [id number] [place] 00:00:00 00:00:00 Adriana Connell MD: [id number] Alevism Epis picture copyist [place] [address] [facility], [facility] [address] [place] [facility] [place] [facility] [address] , Ph. 2021-03-06 2021-03-06 Outpatient Obisesan_ad [facility] 107 [id number] [place] 03:22:00 03:22:00 ekunbi 33790 [facility] 2021-03-06 2021-03-06 [facility] [place] [facility] [id number] [place] 00:00:00 00:00:00 Adriana Hopson da INDOOR LANDSCAPE ARCHITECT: [address] Alev[address] Episc op [facility] [address], [place], [place] Outre [address] h , Ph. Program 2020-12-16 2020-12-16 Outpatient Obisesan_ad [facility] 107 [id number] [place] 01:21:00 01:21:00 ekunbi 90519 [facility] 2020-12-16 2020-12-16 Outpatient Obisesan_ad [facility]OP [facility] 107 [id number] [place] 01:21:00 01:21:00 ekunbi 68804 [facility] 2020-12-04 2020-12-04 Outpatient Obisesan_ad IDHOP ID[facility]OP 107 228- [place] 02:58:00 02:58:00 ekunbi 84060 [facility] 2020-12-04 2020-12-04 [facility] [place] - [id number] [place] 00:00:00 00:00:00 Adriana Hopson da INDOOR LANDSCAPE ARCHITECT: [address]00 Alev[address] Episc op [facility] [address], [place], [place] Outre [address] h , Ph. Program 2020-10-03 2020-10-03 Outpatient Obisesan_ad [facility] 107 [id number] [place] 11:48:00 11:48:00 ekunbi 40734 [facility] 2020-10-03 2020-10-03 Outpatient Obisesan_ad [facility] 107 [id number] [place] 11:48:00 11:48:00 ekunbi 31912 [facility] 2020-10-03 2020-10-03 Vani [facility] [place] - [id number] [place] 00:00:00 00:00:00 Adriana Pagan MD: [address] , [facility] [place] [place] Eye [facility] [address] [facility] ac , Ph. h ([phone]) Program 2020-09-05 2020-09-05 Outpatient Obisesan_ad [facility] 107 [place] 10:42:00 10:42:00 ekunbi 94488 [facility] 2020-09-04 2020-09-04 Outpatient Obisesan_ad [facility] 107 [place] 04:43:00 04:43:00 ekunbi 08350 [facility] 2020-09-04 2020-09-04 Adekunamanda [facility] - [id number] [place] 00:00:00 00:00:00 Adriana Hopson INDOOR LANDSCAPE ARCHITECT: 1700 Alev[address] Episc op [place] Outre [address] h , Ph. Program 2020-09-04 2020-09-04 Orders Doctor NELY 1.2.840.114 [id number] Univers 00:00:00 00:00:00 Only Unassigned, MINH 350.1.13.10 ity of [place] [facility] [id number] Miguelito as [phone] [place] [address] [address] 2020-08-17 2020-08-17 Outpatient Obisesan_ad [facility] 107 [place] 04:53:00 04:53:00 ekunbi [id number] [facility] 2020-08-17 2020-08-17 Enoc Barrera [facility] - [id number] [place] 00:00:00 00:00:00 Adriana Connell MD: [id number] Alevism Epis picture copyist [place] [address] [facility], [facility] Health [address] [place] [facility] [address] , Ph. 2020-08-112020-072020-08-11 Outpatient Obisesan_ad MEHOP [facility] 107 - [place] 04:57:00 04:57:00 ekunbi 95082 [facility] 2020-08-11 2020-08-11 Mayito [facility] [place] - [id number] [place] 00:00:00 00:00:00 Adriana Hopson INDOOR LANDSCAPE ARCHITECT: [address] Ale[address] Ep[facility] op [place] Outre [address] h , Ph. Program 2020-04-24 2020-04-24 Outpatient Obisesan_ad MEHOP [facility] 107 - [place] 11:56:00 11:56:00 ekunbi 82456 [facility] 2020-02-25 2020-02-25 Outpatient Obisesan_ad IDHOP [facility] 107 - [place] 03:51:00 03:51:00 ekunbi 35436 [facility] 2020-02-25 2020-02-25 [facility] [place] - [id number] [place] 00:00:00 00:00:00 Adriana Hopson INDOOR LANDSCAPE ARCHITECT: 1700 Alev[address] Episc op [facility] [address] h , Ph. Program 2020-02-24 2020-02-24 Outpatient Obisesan_ad IDHOP [facility] 107 - [place] 04:28:00 04:28:00 ekunbi 85974 [facility] 2020-02-24 2020-02-24 Enoc Barrera [facility] [place] - 1 [place] 00:00:00 00:00:00 Adriana Connell MD: 74162 Alevism Epis picture copyist [place] [address] [place] [address] Health [address], [place] [facility] [place] Program [address] , Ph. 2020-02-15 2020-02-15 Outpatient Obisesan_ad ID[facility]OP [facility] 107 [id number] [place] 04:41:00 04:41:00 ekunbi 77553 [facility] 2020 2020 Outpatient Obisesan_ad [facility]OP [facility] 107 [id number] [place] 09:38:00 09:38:00 ekunbi 97492 [facility] 2020-02-11 2020-02-11 Outpatient Obisesan_ad [facility] 107 [id number] [place] 04:36:00 04:36:00 ekunbi 08265 [facility] 2020-02-11 2020-02-11 Adekunbi [facility] [place] - [id number] [place] 00:00:00 00:00:00 Adriana Hopson da INDOOR LANDSCAPE ARCHITECT: [address]00 Alev[address] Ep[facility] op [facility] [address] [facility] , Ph. Program 2020-01-20 2020-01-20 Outpatient Obisesan_ad [facility] 107 [id number] [place] 12:02:00 12:02:00 ekunbi 79646 [facility] 2020-01-14 2020-01-14 Outpatient Obisesan_ad ME[facility]OP [facility] 107 [id number] [place] 12:41:00 12:41:00 ekunbi 72901 [facility] 2020-01-13 2020-01-13 Outpatient Obisesan_ad [facility]OP [facility] 107 [id number] [place] 03:59:00 03:59:00 ekunbi 57661 [facility] 2020-01-13 2020-01-13 Adekunbi [facility] [place] - [id number] [place] 00:00:00 00:00:00 Adriana Hopson da INDOOR LANDSCAPE ARCHITECT: 17[address] Ale[address] Ep[facility] op [facility] [address] h , Ph. Program 2019-10-15 2019-10-15 Outpatient Obisesan_ad [facility]OP [facility] [id number] [place] 03:43:00 03:43:00 ekunbi 17190 da [facility] Health [facility] Program 2019-10-15 2019-10-15 Adejanis [facility] [place] - [id number] [place] 00:00:00 00:00:00 Adriana Hopson INDOOR LANDSCAPE ARCHITECT: [address] Ale[address] Episc op [facility] [address], [facility] [address] h , Ph. Program 2019-05-27 2019-05-27 Outpatient Obisesan_ad [facility] [id number] [place] 12:31:00 12:31:00 ekunbi 20292 da Episcop [facility] Program 2019-04-29 2019-04-29 Enoc Barrera [facility] [place] - [id number] [place] 00:00:00 00:00:00 Adriana Connell MD: 09169 Alevism Epis picture copyist [place] [address] [place] [address], [facility] [address], [facility] Program [address] , Ph. 2019-04-07 2019-04-07 [facility] [place] - [id number] [place] 00:00:00 00:00:00 Adriana Hopson INDOOR LANDSCAPE ARCHITECT: 1700 Alevism Episc op [facility] [address], [address] [address] Progr am , Ph. 2019-03-31 2019-03-31 [facility] - [id number] [place] 00:00:00 00:00:00 Adriana Hopson INDOOR LANDSCAPE ARCHITECT: [address] Alev[address] [facility] [address], [address] h [address] Progr am , Ph. 2018-01-21 2018-01-21 [facility] ILIANA ESCOBEDO Orthopedics [id number] Univers 11:15:00 11:15:00 t; DEAN BETANCOURT ity of [place], [place] DEAN BETANCOURT Physici ans 2018-01-14 2018-01-14 [facility] ILIANA ESCOBEDO Orthopedics [id number] Univers 10:15:00 10:15:00 t; DEAN BETANCOURT ity [place], [place] DEAN BETANCOURT Physici ans 2017-12-03 2017-12-03 Appointmen [facility] Orthopedics [id number] Univers 10:15:00 10:15:00 t; DEAN BETANCOURT ity [place], [place] DEAN BETANCOURT Physici ans 2017-10-29 2017-10-29 Appointmen [facility] [id number] Univers 10:00:00 10:00:00 t; ASIA INDOOR LANDSCAPE ARCHITECT ity [place], [place] DEAN BETANCOURT Physici ans Results Test Description Test Time Test Comments Results Result Comments Source Bacteria identified in Urine by Culture 2020-09-06 00:00:00 Test Item Value Reference Range Interpretation Comme nts Bacteria identified in Urine by Culture (test code = 630-4) no grow th [facility] [id number] 00:00:00 Test Item Value Reference Range Interpretation Comments please note (test code = please note) comment [facility] CenterEth[facility] [Mass/volume] in Blood 2020-08-19 00:00:00 Test Item Value Reference Range Interpretation Comments Ethanol [Mass/volume] in Blood by negative cutoff=0.010 Gas chromatography (test code = 56060-8) [facility] CenterHepatitis C virus RNA [Units/volume] (viral load) in Serum or Plasma by NOREEN with probe [id number] 00:00:00 Test Item Value Reference Range Interpretation Comments Hepatitis C virus RNA [id number] IU/mL [Units/volume] (viral load) in Serum or Plasma by NOREEN with probe detection (test code = 83489-1) Hepatitis C virus RNA [log 6.731 log10 IU/mL units/volume] (viral load) in Serum or Plasma by NOREEN with probe detection (test code = 69428-7) test information: (test comment code = test information:) HCV genotype (test code = comment HCV genotype) Hepatitis C virus genotype 1a [Identifier] in Serum or Plasma by NOREEN with probe detection (test code = 39641-7) Laboratory comment [Text] comment in Report Narrative (test code = 12203-6) Report (test code = . 32779-2) [facility] CenterPT/[id number] 00:00:00 Test Item Value Reference Range Interpretation Comments INR in Platelet poor plasma by 1.2 0.9-1.2 Coagulation assay (test code = 6301-6) Prothrombin time (PT) (test code = 12.6 sec 9.1-12.0 H 5902-2) [facility] CenterDrugs identified in Urine by Screen [id number] 00:00:00 Test Item Value Reference Range Interpretation Comments Amphetamines [Presence] in Urine by negative zmushi=0080 Screen method (test code = 39244-3) Barbiturates [Presence] in Urine by negative cwbysu=691 Screen method (test code = 50327-1) Benzodiazepines [Presence] in Urine negative nnpiei=812 (test code = 3390-2) Cannabinoids [Presence] in Urine by negative cutoff=50 Screen method (test code = 09647-0) Benzoylecgonine [Presence] in Urine positive onztje=044 A (test code = 3393-6) Benzoylecgonine [Mass/volume] in 630 NG/mL hefzal=433 Urine by Confirmatory method (test code = 21578-0) Opiates [Presence] in Urine (test negative pwxihp=895 code = 3879-4) Phencyclidine [Presence] in Urine negative cutoff=25 (test code = 3936-2) Methadone [Presence] in Urine by negative cfkvki=419 Screen method (test code = 26138-0) Propoxyphene [Presence] in Urine by negative bacgff=869 Screen method (test code = 00086-6) [facility] CenterDrugs identified in Urine by Screen [id number] 00:00:00 Test Item Value Reference Range Interpretation Comments Amphetamines [Presence] in Urine by negative qhwwdn=5833 Screen method (test code = 12424-2) Barbiturates [Presence] in Urine by negative lubezq=581 Screen method (test code = 77765-1) Benzodiazepines [Presence] in Urine negative etqqgi=881 (test code = 3390-2) Cannabinoids [Presence] in Urine by negative cutoff=50 Screen method (test code = 47029-2) Benzoylecgonine [Presence] in Urine positive ofvvbd=412 A (test code = 3393-6) Benzoylecgonine [Mass/volume] in 630 NG/mL odcrul=888 Urine by Confirmatory method (test code = 31581-7) Opiates [Presence] in Urine (test negative mtarod=967 code = 3879-4) Phencyclidine [Presence] in Urine negative cutoff=25 (test code = 3936-2) Methadone [Presence] in Urine by negative tonwzp=685 Screen method (test code = 94336-9) Propoxyphene [Presence] in Urine by negative jqrztu=614 Screen method (test code = 24894-8) [facility] CenterCT + NG + TV, DNA, urine/swab 2020-08-17 00:00:00 Test Item Value Reference Range Interpretation Comments Chlamydia trachomatis rRNA negative negative [Presence] in Unspecified specimen by NOREEN with probe detection (test code = 69124-8) Neisseria gonorrhoeae rRNA negative negative [Presence] in Unspecified specimen by NOREEN with probe detection (test code = 79556-9) Trichomonas vaginalis DNA [Presence] positive negative A in Unspecified specimen by NOREEN with probe detection (test code = 86872-2) [facility] CenterHerpes simplex virus 1+2 DNA [Presence] in Unspecified specimen by NOREEN with probe [id number] 00:00:00 Test Item Value Reference Range Interpretation Comments Herpes simplex virus 1 DNA negative negative [Presence] in Unspecified specimen by NOREEN with probe detection (test code = 48481-5) Herpes simplex virus 2 DNA negative negative [Presence] in Unspecified specimen by NOREEN with probe detection (test code = 70194-6) [facility] Centercardiovascular assessment panel, [id number] 00:00:00 Test Item Value Reference Range Interpretation Comments Interpretation and review of laboratory note results (test code = 21498-9) Report (test code = 12496-4) . [facility] CenterFree T4 and TSH panel - Serum or [id number] 00:00:00 Test Item Value Reference Range Interpretation Comments Thyrotropin [Units/volume] in 1.510 uIU/mL 0.450-4.500 Serum or Plasma by Detection limit <= 0.005 mIU/L (test code = 59773-6) Thyroxine (T4) free 1.12 NG/dL 0.82-1.77 [Mass/volume] in Serum or Plasma (test code = 3024-7) [facility] W Auto Differential panel - Blood 2020-08-15 00:00:00 Test Item Value Reference Range Interpretation Comments Leukocytes [#/volume] in Blood 9.0 x10e3/uL 3.4-10.8 by Automated count (test code = 6690-2) Erythrocytes [#/volume] in 5.77 x10e6/uL 4.14-5.80 Blood by Automated count (test code = 789-8) Hemoglobin [Mass/volume] in 16.0 g/dL 13.0-17.7 Blood (test code = 718-7) Hematocrit [Volume Fraction] of 48.1 % 37.5-51.0 Blood by Automated count (test code = 4544-3) MCV [Entitic volume] by 83 fL 79-97 Automated count (test code = 787-2) MCH [Entitic mass] by Automated 27.7 pg 26.6-33.0 count (test code = 785-6) MCHC [Mass/volume] by Automated 33.3 g/dL 31.5-35.7 count (test code = 786-4) Erythrocyte distribution width 13.3 % 11.6-15.4 [Ratio] by Automated count (test code = 788-0) Platelets [#/volume] in Blood 232 x10e3/uL 150-450 by Automated count (test code = 777-3) Neutrophils/100 leukocytes in 55 % not estab. Blood by Automated count (test code = 770-8) Lymphocytes/100 leukocytes in 34 % not estab. Blood by Automated count (test code = 736-9) Monocytes/100 leukocytes in 8 % not estab. Blood by Automated count (test code = 5905-5) Eosinophils/100 leukocytes in 2 % not estab. Blood by Automated count (test code = 713-8) Basophils/100 leukocytes in 1 % not estab. Blood by Automated count (test code = 706-2) immature cells (test code = tapper helper immature cells) Neutrophils [#/volume] in Blood 5.0 x10e3/uL 1.4-7.0 by Automated count (test code = 751-8) Lymphocytes [#/volume] in Blood 3.1 x10e3/uL 0.7-3.1 by Automated count (test code = 731-0) Monocytes [#/volume] in Blood 0.7 x10e3/uL 0.1-0.9 by Automated count (test code = 742-7) Eosinophils [#/volume] in Blood 0.2 x10e3/uL 0.0-0.4 by Automated count (test code = 711-2) Basophils [#/volume] in Blood 0.1 x10e3/uL 0.0-0.2 by Automated count (test code = 704-7) Immature granulocytes/100 0 % not estab. leukocytes in Blood by Automated count (test code = 64237-5) Immature granulocytes 0.0 x10e3/uL 0.0-0.1 [#/volume] in Blood by Automated count (test code = 39845-6) Nucleated erythrocytes/100 tapper helper leukocytes [Ratio] in Blood by Automated count (test code = 88017-2) Morphology [Interpretation] in tapper helper Blood Narrative (test code = 38629-6) [facility] Out[facility] ProgramComprehensive metabolic 2000 panel - Serum or [id number] 00:00:00 Test Item Value Reference Range Interpretation Comments Glucose [Mass/volume] in Serum 117 mg/dL 65-99 H or Plasma (test code = 2345-7) Urea nitrogen [Mass/volume] in 10 mg/dL 8-27 Serum or Plasma (test code = 3094-0) Creatinine [Mass/volume] in 1.03 mg/dL 0.76-1.27 Serum or Plasma (test code = 2160-0) Glomerular filtration 77 mL/min/1.73 >59 rate/1.73 sq M.predicted among non-blacks [Volume Rate/Area] in Serum, Plasma or Blood by Creatinine-based formula (CKD-EPI) (test code = 03717-6) Glomerular filtration 90 mL/min/1.73 >59 rate/1.73 sq M.predicted among blacks [Volume Rate/Area] in Serum, Plasma or Blood by Creatinine-based formula (CKD-EPI) (test code = 45842-6) Urea nitrogen/Creatinine [Mass 10 10-24 Ratio] in Serum or Plasma (test code = 3097-3) Sodium [Moles/volume] in Serum 142 mmol/L 134-144 or Plasma (test code = 2951-2) Potassium [Moles/volume] in 4.2 mmol/L 3.5-5.2 Serum or Plasma (test code = 2823-3) Chloride [Moles/volume] in 104 mmol/L 96-106 Serum or Plasma (test code = 5-0) Carbon dioxide, total 25 mmol/L 20-29 [Moles/volume] in Serum or Plasma (test code = 2027-) Calcium [Mass/volume] in Serum 9.7 mg/dL 8.6-10.2 or Plasma (test code = 94185-8) Protein [Mass/volume] in Serum 7.9 g/dL 6.0-8.5 or Plasma (test code = 2885-2) Albumin [Mass/volume] in Serum 4.4 g/dL 3.8-4.8 or Plasma (test code = 1751-7) Globulin [Mass/volume] in 3.5 g/dL 1.5-4.5 Serum by calculation (test code = 62504-6) Albumin/Globulin [Mass Ratio] 1.3 1.2-2.2 in Serum or Plasma (test code = 1759-0) Bilirubin.total [Mass/volume] 0.6 mg/dL 0.0-1.2 in Serum or Plasma (test code = 1974-) Alkaline phosphatase 99 IU/L 39-117 [Enzymatic activity/volume] in Serum or Plasma (test code = 6768-6) Aspartate aminotransferase 24 IU/L 0-40 [Enzymatic activity/volume] in Serum or Plasma (test code = 1920-8) Alanine aminotransferase 25 IU/L 0-44 [Enzymatic activity/volume] in Serum or Plasma (test code = 1742-6) [facility] CenterLipid 1996 panel - Serum or Plasma 2020-08-15 00:00:00 Test Item Value Reference Range Interpretation Comments Cholesterol [Mass/volume] in Serum 121 mg/dL 100-199 or Plasma (test code = 3-3) Triglyceride [Mass/volume] in Serum 94 mg/dL 0-149 or Plasma (test code = 2571-8) Cholesterol in HDL [Mass/volume] in 32 mg/dL >39 L Serum or Plasma (test code = 2085-9) Cholesterol in VLDL [Mass/volume] 18 mg/dL 5-40 in Serum or Plasma by calculation (test code = 25643-1) Cholesterol in LDL [Mass/volume] in 71 mg/dL 0-99 Serum or Plasma by calculation (test code = 06952-7) Laboratory comment [Text] in Report tapper helper Narrative (test code = 60972-5) [facility] CenterHemoglobin A1c/Hemoglobin.total in [id number] 00:00:00 Test Item Value Reference Range Interpretation Comments Hemoglobin A1c/Hemoglobin.total in 5.7 % 4.8-5.6 H Blood (test code = 4548-4) Glucose mean value [Mass/volume] in 117 mg/dL Blood Estimated from glycated hemoglobin (test code = 77060-0) [facility] CenterProstate specific Ag [Mass/volume] in Serum or [id number] 00:00:00 Test Item Value Reference Range Interpretation Comments Prostate specific Ag [Mass/volume] 5.6 NG/mL 0.0-4.0 H in Serum or Plasma (test code = 2857-1) [facility] CenterReagin Ab [Presence] in Serum by RPR 2020-08-15 00:00:00 Test Item Value Reference Range Interpretation Comments Reagin Ab [Presence] in Serum by non reactive non reactive RPR (test code = 19321-2) [facility] CenterHIV 1+2 Ab+HIV1 p24 Ag [Presence] in Serum or Plasma by [id number] 00:00:00 Test Item Value Reference Range Interpretation Comments HIV 1+2 Ab+HIV1 p24 Ag non reactive non reactive [Presence] in Serum or Plasma by Immunoassay (test code = 49956-0) [facility] + TV, DNA, urine/swab 2020-01-15 00:00:00 Test Item Value Reference Range Interpretation Comments Chlamydia trachomatis rRNA negative negative [Presence] in Unspecified specimen by NOREEN with probe detection (test code = 69282-7) Neisseria gonorrhoeae rRNA negative negative [Presence] in Unspecified specimen by NOREEN with probe detection (test code = 60636-8) Trichomonas vaginalis DNA [Presence] positive negative A in Unspecified specimen by NOREEN with probe detection (test code = 25471-7) [facility] CenterFree T4 and TSH panel - Serum or [id number] 00:00:00 Test Item Value Reference Range Interpretation Comments Thyrotropin [Units/volume] in 1.480 uIU/mL 0.450-4.500 Serum or Plasma by Detection limit <= 0.005 mIU/L (test code = 71912-3) Thyroxine (T4) free 1.12 NG/dL 0.82-1.77 [Mass/volume] in Serum or Plasma (test code = 3024-7) [facility] - [facility] 2020-01-14 00:00:00 Test Item Value Reference Range Interpretation Comments Leukocytes [#/volume] in Blood 10.9 x10e3/uL 3.4-10.8 H by Automated count (test code = 6690-2) Erythrocytes [#/volume] in 5.37 x10e6/uL 4.14-5.80 Blood by Automated count (test code = 789-8) Hemoglobin [Mass/volume] in 15.3 g/dL 13.0-17.7 Blood (test code = 718-7) Hematocrit [Volume Fraction] of 44.9 % 37.5-51.0 Blood by Automated count (test code = 4544-3) MCV [Entitic volume] by 84 fL 79-97 Automated count (test code = 787-2) MCH [Entitic mass] by Automated 28.5 pg 26.6-33.0 count (test code = 785-6) MCHC [Mass/volume] by Automated 34.1 g/dL 31.5-35.7 count (test code = 786-4) Erythrocyte distribution width 13.3 % 11.6-15.4 [Ratio] by Automated count (test code = 788-0) Platelets [#/volume] in Blood 189 x10e3/uL 150-450 by Automated count (test code = 777-3) Neutrophils/100 leukocytes in 52 % not estab. Blood by Automated count (test code = 770-8) Lymphocytes/100 leukocytes in 35 % not estab. Blood by Automated count (test code = 736-9) Monocytes/100 leukocytes in 8 % not estab. Blood by Automated count (test code = 5905-5) Eosinophils/100 leukocytes in 3 % not estab. Blood by Automated count (test code = 713-8) Basophils/100 leukocytes in 2 % not estab. Blood by Automated count (test code = 706-2) immature cells (test code = tapper helper immature cells) Neutrophils [#/volume] in Blood 5.7 x10e3/uL 1.4-7.0 by Automated count (test code = 751-8) Lymphocytes [#/volume] in Blood 3.8 x10e3/uL 0.7-3.1 H by Automated count (test code = 731-0) Monocytes [#/volume] in Blood 0.9 x10e3/uL 0.1-0.9 by Automated count (test code = 742-7) Eosinophils [#/volume] in Blood 0.3 x10e3/uL 0.0-0.4 by Automated count (test code = 711-2) Basophils [#/volume] in Blood 0.2 x10e3/uL 0.0-0.2 by Automated count (test code = 704-7) Immature granulocytes/100 0 % not estab. leukocytes in Blood by Automated count (test code = 29270-5) Immature granulocytes 0.0 x10e3/uL 0.0-0.1 [#/volume] in Blood by Automated count (test code = 04169-9) Nucleated erythrocytes/100 tapper helper leukocytes [Ratio] in Blood by Automated count (test code = 88889-8) Morphology [Interpretation] in tapper helper Blood Narrative (test code = 84344-8) [facility] ProgramCom[facility] 2000 panel - Serum or [id number] 00:00:00 Test Item Value Reference Range Interpretation Comments Glucose [Mass/volume] in 97 mg/dL 65-99 Serum or Plasma (test code = 2345-7) Urea nitrogen [Mass/volume] 8 mg/dL 8-27 in Serum or Plasma (test code = 3094-0) Creatinine [Mass/volume] in 0.94 mg/dL 0.76-1.27 Serum or Plasma (test code = 2160-0) Glomerular filtration 87 mL/min/1.73 >59 rate/1.73 sq M.predicted among non-blacks [Volume Rate/Area] in Serum, Plasma or Blood by Creatinine-based formula (CKD-EPI) (test code = 56319-1) Glomerular filtration 101 mL/min/1.73 >59 rate/1.73 sq M.predicted among blacks [Volume Rate/Area] in Serum, Plasma or Blood by Creatinine-based formula (CKD-EPI) (test code = 44561-4) Urea nitrogen/Creatinine 9 10-24 L [Mass Ratio] in Serum or Plasma (test code = 3097-3) Sodium [Moles/volume] in 142 mmol/L 134-144 Serum or Plasma (test code = 2951-2) Potassium [Moles/volume] in 4.3 mmol/L 3.5-5.2 Serum or Plasma (test code = 2823-3) Chloride [Moles/volume] in 103 mmol/L 96-106 Serum or Plasma (test code = 2075-0) Carbon dioxide, total 21 mmol/L 20-29 [Moles/volume] in Serum or Plasma (test code = 2027-) Calcium [Mass/volume] in 9.5 mg/dL 8.6-10.2 Serum or Plasma (test code = 55638-6) Protein [Mass/volume] in 7.6 g/dL 6.0-8.5 Serum or Plasma (test code = 2885-2) Albumin [Mass/volume] in 4.4 g/dL 3.8-4.8 Serum or Plasma (test code = 1751-7) Globulin [Mass/volume] in 3.2 g/dL 1.5-4.5 Serum by calculation (test code = 77100-7) Albumin/Globulin [Mass Ratio] 1.4 1.2-2.2 in Serum or Plasma (test code = 1759-0) Bilirubin.total [Mass/volume] 0.8 mg/dL 0.0-1.2 in Serum or Plasma (test code = 1974-) Alkaline phosphatase 85 IU/L 39-117 [Enzymatic activity/volume] in Serum or Plasma (test code = 6768-6) Aspartate aminotransferase 26 IU/L 0-40 [Enzymatic activity/volume] in Serum or Plasma (test code = 192-8) Alanine aminotransferase 26 IU/L 0-44 [Enzymatic activity/volume] in Serum or Plasma (test code = 1742-6) [facility] CenterUrinal[facility] complete [facility] - [facility] 2020-01-14 00:00:00 Test Item Value Reference Range Interpretation Comments Specific gravity of Urine (test 1.029 1.005-1.030 code = 2965-2) pH of Urine by Test strip (test 5.0 5.0-7.5 code = 5803-2) Color of Urine (test code = 5778-6) yellow yellow Appearance of Urine (test code = cloudy clear A 5767-9) Leukocyte esterase [Presence] in 2+ negative A Urine by Test strip (test code = 5799-2) Protein [Presence] in Urine by Test trace negative/trace strip (test code = 98516-0) Glucose [Presence] in Urine (test negative negative code = 2349-9) Ketones [Presence] in Urine by Test negative negative strip (test code = 2514-8) Hemoglobin [Presence] in Urine by negative negative Test strip (test code = 5794-3) Bilirubin.total [Presence] in Urine negative negative by Test strip (test code = 5770-3) Urobilinogen [Mass/volume] in Urine 1.0 mg/dL 0.2-1.0 by Test strip (test code = 70470-0) Nitrite [Presence] in Urine by Test negative negative strip (test code = 5802-4) Microscopic observation tapper helper [Identifier] in Urine sediment by Light microscopy (test code = 99817-2) Leukocytes [#/area] in Urine 11-30 0-5 A sediment by Microscopy high power field (test code = 5821-4) Erythrocytes [#/area] in Urine 0-2 0-2 sediment by Microscopy high power field (test code = 87758-3) Epithelial cells [#/area] in Urine 0-10 0-10 sediment by Microscopy high power field (test code = 5787-7) Epithelial cells.renal [#/area] in tapper helper Urine sediment by Microscopy high power field (test code = 67389-5) Casts [Presence] in Urine sediment tapper helper by Light microscopy (test code = 21457-2) Casts [Type] in Urine sediment by tapper helper Light microscopy (test code = 99928-7) Unidentified crystals [Presence] in tapper helper Urine sediment by Light microscopy (test code = 5783-6) Crystals [type] in Urine sediment tapper helper by Light microscopy (test code = 5782-8) Mucus [Presence] in Urine sediment present not estab. by Light microscopy (test code = 8247-9) Bacteria [#/area] in Urine sediment none seen none seen/few by Microscopy high power field (test code = 5769-5) Yeast [#/area] in Urine sediment by tapper helper Microscopy high power field (test code = 5822-2) Trichomonas vaginalis [Presence] in tapper helper Urine sediment by Light microscopy (test code = 5813-1) Urine sediment comments by Light tapper helper microscopy Narrative (test code = 72390-5) [facility] Center[facility] 1996 [facility] - [facility] or Plasma 2020-01-14 00:00:00 Test Item Value Reference Range Interpretation Comments Cholesterol [Mass/volume] in Serum 117 mg/dL 100-199 or Plasma (test code = 2093-3) Triglyceride [Mass/volume] in Serum 74 mg/dL 0-149 or Plasma (test code = 2571-8) Cholesterol in HDL [Mass/volume] in 32 mg/dL >39 L Serum or Plasma (test code = 2085-9) Cholesterol in VLDL [Mass/volume] 15 mg/dL 5-40 in Serum or Plasma by calculation (test code = 63125-0) Cholesterol in LDL [Mass/volume] in 70 mg/dL 0-99 Serum or Plasma by calculation (test code = 74861-7) Laboratory comment [Text] in Report tapper helper Narrative (test code = 64787-3) [facility] CenterHemoglobin A1c/Hemoglobin.total in [id number] 00:00:00 Test Item Value Reference Range Interpretation Comments Hemoglobin A1c/Hemoglobin.total in 5.9 % 4.8-5.6 H Blood (test code = 4548-4) [facility] CenterReagin Ab [Presence] in Serum by RPR 2020-01-14 00:00:00 Test Item Value Reference Range Interpretation Comments Reagin Ab [Presence] in Serum by non reactive non reactive RPR (test code = 06616-6) [facility] Centercardiovascular assessment panel, [id number] 00:00:00 Test Item Value Reference Range Interpretation Comments interpretation (test code = note interpretation) pdf (test code = pdf) . [facility] ProgramHepatitis C virus RNA [Units/volume] (viral load) in Serum or Plasma by Probe and target amplification method 2019-04-09 00:00:00 Test Item Value Reference Range Interpretation Comments Hepatitis C virus RNA 1845199 IU/mL [Units/volume] (viral load) in Serum or Plasma by Probe and target amplification method (test code = 51521-2) Hepatitis C virus RNA [log 6.952 log10 IU/mL units/volume] (viral load) in Serum or Plasma by Probe and target amplification method (test code = 63047-1) test information: (test comment code = test information:) [facility] ProgramHepatitis C virus RNA [Presence] in Serum or Plasma by Probe and target amplification [id number] 00:00:00 Test Item Value Reference Range Interpretation Comments Hepatitis C virus RNA [Presence] in positive negative A Serum or Plasma by Probe and target amplification method (test code = 39293-2) [facility] CenterHepatitis C virus RNA [Units/volume] (viral load) in Serum or Plasma by Probe and target amplification method 2019-04-09 00:00:00 Test Item Value Reference Range Interpretation Comments Hepatitis C virus RNA [id number] IU/mL [Units/volume] (viral load) in Serum or Plasma by Probe and target amplification method (test code = 61108-7) Hepatitis C virus RNA [log 6.952 log10 IU/mL units/volume] (viral load) in Serum or Plasma by Probe and target amplification method (test code = 11783-5) test information: (test comment code = test information:) [facility] ProgramHepatitis C virus RNA [Presence] in Serum or Plasma by Probe and target amplification [id number] 00:00:00 Test Item Value Reference Range Interpretation Comments Hepatitis C virus RNA [Presence] in positive negative A Serum or Plasma by Probe and target amplification method (test code = 11731-2) [facility] ProgramPSA, serum or [id number] 00:00:00 Test Item Value Reference Range Interpretation Comments Prostate specific Ag [Mass/volume] 2.2 NG/mL 0.0-4.0 in Serum or Plasma (test code = 2857-1) reflex criteria (test code = reflex comment criteria) [facility] CenterPSA, serum or [id number] 00:00:00 Test Item Value Reference Range Interpretation Comments Prostate specific Ag [Mass/volume] 2.2 NG/mL 0.0-4.0 in Serum or Plasma (test code = 2857-1) reflex criteria (test code = reflex comment criteria) [facility] CenterChlamydia trachomatis and Neisseria gonorrhoeae rRNA panel - Unspecified specimen by Probe and target amplification [id number] 00:00:00 Test Item Value Reference Range Interpretation Comments Chlamydia trachomatis rRNA negative negative [Presence] in Unspecified specimen by Probe and target amplification method (test code = 12785-8) Neisseria gonorrhoeae rRNA negative negative [Presence] in Unspecified specimen by Probe and target amplification method (test code = 62080-1) [facility] CenterChlamydia trachomatis and Neisseria gonorrhoeae rRNA panel - Unspecified specimen by Probe and target amplification [id number] 00:00:00 Test Item Value Reference Range Interpretation Comments Chlamydia trachomatis rRNA negative negative [Presence] in Unspecified specimen by Probe and target amplification method (test code = 68534-9) Neisseria gonorrhoeae rRNA negative negative [Presence] in Unspecified specimen by Probe and target amplification method (test code = 95415-1) [facility] CenterCT + [facility] + TV, DNA, urine/swab 2019-04-05 00:00:00 Test Item Value Reference Range Interpretation Comments Chlamydia trachomatis rRNA positive negative A [Presence] in Unspecified specimen by Probe and target amplification method (test code = 11375-3) Neisseria gonorrhoeae rRNA negative negative [Presence] in Unspecified specimen by Probe and target amplification method (test code = 76313-2) trich vag by NOREEN (test code = trich negative negative vag by NOREEN) [facility] CenterCT [facility] + TV, DNA, urine/swab 2019-04-05 00:00:00 Test Item Value Reference Range Interpretation Comments Chlamydia trachomatis rRNA positive negative A [Presence] in Unspecified specimen by Probe and target amplification method (test code = 25547-6) Neisseria gonorrhoeae rRNA negative negative [Presence] in Unspecified specimen by Probe and target amplification method (test code = 72515-2) trich vag by NOREEN (test code = trich negative negative vag by NOREEN) [facility] Centerwritten [id number] 00:00:00 Test Item Value Reference Range Interpretation Comments written authorization (test code = comment written authorization) [facility]CT [facility] + TV, DNA, urine/swab 2019-04-05 00:00:00 Test Item Value Reference Range Interpretation Comments Chlamydia trachomatis rRNA positive negative A [Presence] in Unspecified specimen by Probe and target amplification method (test code = 05269-4) Neisseria gonorrhoeae rRNA negative negative [Presence] in Unspecified specimen by Probe and target amplification method (test code = 52198-8) trich vag by NOREEN (test code = trich negative negative vag by NOREEN) [facility] Centerwritten [id number] 00:00:00 Test Item Value Reference Range Interpretation Comments written authorization (test code = comment written authorization) [facility] CenterBacteria identified in Urine by [id number] 00:00:00 Test Item Value Reference Range Interpretation Comments Bacteria identified in Urine by no growth Culture (test code = 630-4) [facility] CenterCT [facility] + TV, DNA, urine/swab 2019-04-02 00:00:00 Test Item Value Reference Range Interpretation Comments Chlamydia trachomatis rRNA negative negative [Presence] in Unspecified specimen by Probe and target amplification method (test code = 20843-6) Neisseria gonorrhoeae rRNA negative negative [Presence] in Unspecified specimen by Probe and target amplification method (test code = 88058-6) trich vag by NOREEN (test code = trich negative negative vag by NOREEN) [facility] CenterHerpes simplex virus 1+2 IgG Ab [Units/volume] in [id number] 00:00:00 Test Item Value Reference Range Interpretation Comments Herpes simplex virus 1 IgG Ab 56.80 index 0.00-0.90 H [Units/volume] in Serum by Immunoassay (test code = 5206-8) Herpes simplex virus 2 IgG Ab 1.19 index 0.00-0.90 H [Units/volume] in Serum by Immunoassay (test code = 5209-2) Herpes simplex virus 2 IgG Ab positive negative A [Presence] in Serum by Immunoassay (test code = 54452-6) [facility] CenterBacteria identified in Urine by [id number] 00:00:00 Test Item Value Reference Range Interpretation Comments Bacteria identified in Urine by no growth Culture (test code = 630-4) [facility] Centercardiovascular assessment panel, [id number] 00:00:00 Test Item Value Reference Range Interpretation Comments interpretation (test code = note interpretation) pdf image (test code = pdf image) . [facility] CenterBacteria identified in Urine by [id number] 00:00:00 Test Item Value Reference Range Interpretation Comments Bacteria identified in Urine by no growth Culture (test code = 630-4) [facility]CT [facility] + TV, DNA, urine/swab 2019-04-02 00:00:00 Test Item Value Reference Range Interpretation Comments Chlamydia trachomatis rRNA negative negative [Presence] in Unspecified specimen by Probe and target amplification method (test code = 59554-0) Neisseria gonorrhoeae rRNA negative negative [Presence] in Unspecified specimen by Probe and target amplification method (test code = 78155-2) trich vag by NOREEN (test code = trich negative negative vag by NOREEN) [facility] CenterHerpes simplex virus 1+2 IgG Ab [Units/volume] in [id number] 00:00:00 Test Item Value Reference Range Interpretation Comments Herpes simplex virus 1 IgG Ab 56.80 index 0.00-0.90 H [Units/volume] in Serum by Immunoassay (test code = 5206-8) Herpes simplex virus 2 IgG Ab 1.19 index 0.00-0.90 H [Units/volume] in Serum by Immunoassay (test code = 5209-2) Herpes simplex virus 2 IgG Ab positive negative A [Presence] in Serum by Immunoassay (test code = 82075-4) [facility] CenterBacteria identified in Urine by [id number] 00:00:00 Test Item Value Reference Range Interpretation Comments Bacteria identified in Urine by no growth Culture (test code = 630-4) [facility] Centercardiovascular assessment panel, [id number] 00:00:00 Test Item Value Reference Range Interpretation Comments interpretation (test code = note interpretation) pdf image (test code = pdf image) . [facility] CenterBacteria identified in Urine by [id number] 00:00:00 Test Item Value Reference Range Interpretation Comments Bacteria identified in Urine by no growth Culture (test code = 630-4) [facility]CT [facility] + TV, DNA, urine/swab 2019-04-02 00:00:00 Test Item Value Reference Range Interpretation Comments Chlamydia trachomatis rRNA negative negative [Presence] in Unspecified specimen by Probe and target amplification method (test code = 70956-2) Neisseria gonorrhoeae rRNA negative negative [Presence] in Unspecified specimen by Probe and target amplification method (test code = 64918-9) trich vag by NOREEN (test code = trich negative negative vag by NOREEN) [facility] CenterHerpes simplex virus 1+2 IgG Ab [Units/volume] in [id number] 00:00:00 Test Item Value Reference Range Interpretation Comments Herpes simplex virus 1 IgG Ab 56.80 index 0.00-0.90 H [Units/volume] in Serum by Immunoassay (test code = 5206-8) Herpes simplex virus 2 IgG Ab 1.19 index 0.00-0.90 H [Units/volume] in Serum by Immunoassay (test code = 5209-2) Herpes simplex virus 2 IgG Ab positive negative A [Presence] in Serum by Immunoassay (test code = 79716-9) [facility] CenterBacteria identified in Urine by [id number] 00:00:00 Test Item Value Reference Range Interpretation Comments Bacteria identified in Urine by no growth Culture (test code = 630-4) [facility] Centercardiovascular assessment panel, [id number] 00:00:00 Test Item Value Reference Range Interpretation Comments interpretation (test code = note interpretation) pdf image (test code = pdf image) . [facility] CenterFree T4 and TSH panel - Serum or [id number] 00:00:00 Test Item Value Reference Range Interpretation Comments Thyrotropin [Units/volume] in 1.050 uIU/mL 0.450-4.500 Serum or Plasma by Detection limit <= 0.005 mIU/L (test code = 58378-7) Thyroxine (T4) free 1.15 NG/dL 0.82-1.77 [Mass/volume] in Serum or Plasma (test code = 3024-7) [facility] W Auto Differential panel - [...] = 706-2) immature cells (test code = tapper helper immature cells) Neutrophils [#/volume] in Blood 6.2 [...] Blood by Automated count (test code = 11638-5) Nucleated erythrocytes/100 tapper helper leukocytes [Ratio] in Blood by Automated count (test code = 57043-7) Morphology [interpretation] in tapper helper Blood Narrative (test code = 91042-1) [facility] ProgramComprehensive metabolic 2000 panel - Serum or [id number] 00:00:00 Test Item Value Reference Range Interpretation [...] mg/dL 8.6-10.2 or Plasma (test code = 06516-7) Protein [Mass/volume] in Serum 7.3 g/dL 6.0-8.5 or Plasma (test code = 2885-2) Albumin [Mass/volume] in Serum 4.0 g/dL 3.6-4.8 or Plasma (test code = 1751-7) Globulin [Mass/volume] in 3.3 g/dL 1.5-4.5 Serum by calculation (test code = 63648-7) Albumin/Globulin [Mass Ratio] 1.2 1.2-2.2 in Serum [...] Serum or Plasma (test code = 1742-6) [facility] CenterLipid 1996 panel - Serum or Plasma 2019-04-01 [...] or Plasma by calculation (test code = 20454-4) Cholesterol in LDL [Mass/volume] in 68 mg/dL 0-99 Serum or Plasma by calculation (test code = 81008-9) comment: (test code = comment:) tapper helper [facility] CenterAcute hepatitis 2000 panel - Serum [id number] 00:00:00 Test Item Value Reference Range Interpretation Comments Hepatitis A virus IgM Ab [Presence] negative negative in Serum or Plasma by Immunoassay (test code = 74218-8) Hepatitis B virus surface Ag negative negative [Presence] in Serum or Plasma by Immunoassay (test code = 5196-1) Hepatitis B virus core IgM Ab negative negative [Presence] in Serum or Plasma by Immunoassay (test code = 26112-1) Hepatitis C virus Ab Signal/Cutoff >11.0 0.0-0.9 H in Serum or Plasma by Immunoassay (test code = 90715-6) [facility] CenterHemoglobin A1c/Hemoglobin.total in [id number] 00:00:00 Test Item Value Reference Range Interpretation Comments Hemoglobin A1c/Hemoglobin.total in 6.0 % 4.8-5.6 H Blood (test code = 4548-4) [facility] CenterHepatitis B virus surface Ab [Presence] in [id number] 00:00:00 Test Item Value Reference Range Interpretation Comments Hepatitis B virus surface Ab reactive [Presence] in Serum (test code = 22033-4) [facility] CenterReagin Ab [Presence] in Serum by RPR 2019-04-01 00:00:00 Test Item Value Reference Range Interpretation Comments Reagin Ab [Presence] in Serum by non reactive non reactive RPR (test code = 62211-4) [facility]25-Hydroxyvitamin D [Mass/volume] in Serum or [id number] 00:00:00 Test Item Value Reference Range Interpretation Comments 25-Hydroxyvitamin D [Mass/volume] 12.3 NG/mL 30.0-100.0 L in Serum or Plasma (test code = 92785-8) [facility] CenterHIV 1+2 Ab+HIV1 p24 Ag [Presence] in Serum by [id number] 00:00:00 Test Item Value Reference Range Interpretation Comments HIV 1+2 Ab+HIV1 p24 Ag non reactive non reactive [Presence] in Serum by Immunoassay (test code = 26084-0) [facility] CenterHepatitis C virus Ab Signal/Cutoff in Serum or Plasma by [id number] 00:00:00 Test Item Value Reference Range Interpretation Comments Hepatitis C virus Ab Signal/Cutoff in >11.0 0.0-0.9 H Serum or Plasma by Immunoassay (test code = 00440-0) comment: (test code = comment:) comment [facility] CenterFree T4 and TSH panel - Serum or [id number] 00:00:00 Test Item Value Reference Range Interpretation Comments Thyrotropin [Units/volume] in 1.050 uIU/mL 0.450-4.500 Serum or Plasma by Detection limit <= 0.005 mIU/L (test code = 86687-5) Thyroxine (T4) free 1.15 NG/dL 0.82-1.77 [Mass/volume] in Serum or Plasma (test code = 3024-7) [facility] CenterCB W Auto Differential panel - Blood 2019-04-01 [...] = 706-2) immature cells (test code = tapper helper immature cells) Neutrophils [#/volume] in Blood 6.2 [...] Blood by Automated count (test code = 35868-3) Nucleated erythrocytes/100 tapper helper leukocytes [Ratio] in Blood by Automated count (test code = 06593-1) Morphology [interpretation] in tapper helper Blood Narrative (test code = 63207-1) [facility] 2000 [facility] - Serum or [id number] 00:00:00 Test Item Value Reference Range Interpretation [...] mg/dL 8.6-10.2 or Plasma (test code = 14623-7) Protein [Mass/volume] in Serum 7.3 g/dL 6.0-8.5 or Plasma (test code = 2885-2) Albumin [Mass/volume] in Serum 4.0 g/dL 3.6-4.8 or Plasma (test code = 1751-7) Globulin [Mass/volume] in 3.3 g/dL 1.5-4.5 Serum by calculation (test code = 17304-6) Albumin/Globulin [Mass Ratio] 1.2 1.2-2.2 in Serum [...] Serum or Plasma (test code = 1742-6) [facility] CenterLipid 1996 panel - Serum or Plasma 2019-04-01 [...] or Plasma by calculation (test code = 67055-1) Cholesterol in LDL [Mass/volume] in 68 mg/dL 0-99 Serum or Plasma by calculation (test code = 74397-4) comment: (test code = comment:) tapper helper [facility] CenterAcute hepatitis 2000 panel - Serum [id number] 00:00:00 Test Item Value Reference Range Interpretation Comments Hepatitis A virus IgM Ab [Presence] negative negative in Serum or Plasma by Immunoassay (test code = 62915-4) Hepatitis B virus surface Ag negative negative [Presence] in Serum or Plasma by Immunoassay (test code = 5196-1) Hepatitis B virus core IgM Ab negative negative [Presence] in Serum or Plasma by Immunoassay (test code = 72603-9) Hepatitis C virus Ab Signal/Cutoff >11.0 0.0-0.9 H in Serum or Plasma by Immunoassay (test code = 69774-9) [facility]Hemoglobin.total in [id number] 00:00:00 Test Item Value Reference Range Interpretation Comments Hemoglobin A1c/Hemoglobin.total in 6.0 % 4.8-5.6 H Blood (test code = 4548-4) [facility]Hep[facility] surface Ab [Presence] in [id number] 00:00:00 Test Item Value Reference Range Interpretation Comments Hepatitis B virus surface Ab reactive [Presence] in Serum (test code = 03451-3) [facility] [Presence] in Serum by RPR 2019-04-01 00:00:00 Test Item Value Reference Range Interpretation Comments Reagin Ab [Presence] in Serum by non reactive non reactive RPR (test code = 58954-7) [facility]25-Hydroxyvitamin D [Mass/volume] in Serum or [id number] 00:00:00 Test Item Value Reference Range Interpretation Comments 25-Hydroxyvitamin D [Mass/volume] 12.3 NG/mL 30.0-100.0 L in Serum or Plasma (test code = 36880-8) [facility]HIV [facility]+2 Ab+HIV1 p24 Ag [Presence] in Serum by [id number] 00:00:00 Test Item Value Reference Range Interpretation Comments HIV 1+2 Ab+HIV1 p24 Ag non reactive non reactive [Presence] in Serum by Immunoassay (test code = 06935-2) [facility]Hep[facility] virus Ab Signal/Cutoff in Serum or Plasma by [id number] 00:00:00 Test Item Value Reference Range Interpretation Comments Hepatitis C virus Ab Signal/Cutoff in >11.0 0.0-0.9 H Serum or Plasma by Immunoassay (test code = 58868-2) comment: (test code = comment:) comment [facility] CenterFree T4 and TSH panel - Serum or [id number] 00:00:00 Test Item Value Reference Range Interpretation Comments Thyrotropin [Units/volume] in 1.050 uIU/mL 0.450-4.500 Serum or Plasma by Detection limit <= 0.005 mIU/L (test code = 79349-6) Thyroxine (T4) free 1.15 NG/dL 0.82-1.77 [Mass/volume] in Serum or Plasma (test code = 3024-7) [facility] CenterCBC W Auto Differential panel - Blood 2019-04-01 [...] = 706-2) immature cells (test code = tapper helper immature cells) Neutrophils [#/volume] in Blood 6.2 [...] Blood by Automated count (test code = 35053-1) Nucleated erythrocytes/100 tapper helper leukocytes [Ratio] in Blood by Automated count (test code = 82954-3) Morphology [interpretation] in tapper helper Blood Narrative (test code = 17914-7) [facility] CenterComprehensive metabolic 2000 panel - Serum or [id number] 00:00:00 Test Item Value Reference Range Interpretation [...] mg/dL 8.6-10.2 or Plasma (test code = 20897-2) Protein [Mass/volume] in Serum 7.3 g/dL 6.0-8.5 or Plasma (test code = 2885-2) Albumin [Mass/volume] in Serum 4.0 g/dL 3.6-4.8 or Plasma (test code = 1751-7) Globulin [Mass/volume] in 3.3 g/dL 1.5-4.5 Serum by calculation (test code = 94284-7) Albumin/Globulin [Mass Ratio] 1.2 1.2-2.2 in Serum [...] Serum or Plasma (test code = 1742-6) [facility] CenterLipid 1996 panel - Serum or Plasma 2019-04-01 [...] or Plasma by calculation (test code = 74192-3) Cholesterol in LDL [Mass/volume] in 68 mg/dL 0-99 Serum or Plasma by calculation (test code = 11515-3) comment: (test code = comment:) tapper helper [facility] CenterAcute hepatitis 2000 panel - Serum [id number] 00:00:00 Test Item Value Reference Range Interpretation Comments Hepatitis A virus IgM Ab [Presence] negative negative in Serum or Plasma by Immunoassay (test code = 87677-5) Hepatitis B virus surface Ag negative negative [Presence] in Serum or Plasma by Immunoassay (test code = 5196-1) Hepatitis B virus core IgM Ab negative negative [Presence] in Serum or Plasma by Immunoassay (test code = 69044-8) Hepatitis C virus Ab Signal/Cutoff >11.0 0.0-0.9 H in Serum or Plasma by Immunoassay (test code = 87980-9) [facility] CenterHemoglobin A1c/Hemoglobin.total in [id number] 00:00:00 Test Item Value Reference Range Interpretation Comments Hemoglobin A1c/Hemoglobin.total in 6.0 % 4.8-5.6 H Blood (test code = 4548-4) [facility] CenterHepatitis B virus surface Ab [Presence] in [id number] 00:00:00 Test Item Value Reference Range Interpretation Comments Hepatitis B virus surface Ab reactive [Presence] in Serum (test code = 20275-7) [facility] CenterReagin Ab [Presence] in Serum by RPR 2019-04-01 00:00:00 Test Item Value Reference Range Interpretation Comments Reagin Ab [Presence] in Serum by non reactive non reactive RPR (test code = 45306-6) [facility]25-Hydroxyvitamin D [Mass/volume] in Serum or [id number] 00:00:00 Test Item Value Reference Range Interpretation Comments 25-Hydroxyvitamin D [Mass/volume] 12.3 NG/mL 30.0-100.0 L in Serum or Plasma (test code = 88956-2) [facility] CenterHIV 1+2 Ab+HIV1 p24 Ag [Presence] in Serum by [id number] 00:00:00 Test Item Value Reference Range Interpretation Comments HIV 1+2 Ab+HIV1 p24 Ag non reactive non reactive [Presence] in Serum by Immunoassay (test code = 99045-6) [facility] CenterHepatitis C virus Ab Signal/Cutoff in Serum or Plasma by [id number] 00:00:00 Test Item Value Reference Range Interpretation Comments Hepatitis C virus Ab Signal/Cutoff in >11.0 0.0-0.9 H Serum or Plasma by Immunoassay (test code = 85061-3) comment: (test code = comment:) comment [facility][U] XRAY PELVIS MIN 3 [id number] [id number] 2017-10-29 10:37:00Images acquired, not reported on this accession number. [facility]
[2021-07-04] MEDS ORDERED: MORPHINE 4 MG/ML SYR ONE (17:57)
[2021-07-04] MEDS ORDERED: ONDANSETRON 4 MG/2 ML VIAL ONE (17:57)
[2021-07-04] MEDS ORDERED: ASPIRIN 81 MG CHEWABLE TABLET ONE (17:57)
--- NOTE | 2021-07-04 18:04 | RAD REPORT ---
EXAM DESCRIPTION: RAD - Chest Single View - 07/04/2021 5:14 pm CLINICAL HISTORY: CHEST PAIN COMPARISON: Chest Single View dated 12/17/2019; Chest Single View dated 10/12/2017 FINDINGS: Lines: None. Lungs: Mild ill-defined bilateral basilar opacities. Pleural: No significant pleural effusions or pneumothorax. Cardiac: The heart size is within normal limits. Bones: No acute fractures. Other: IMPRESSION: Ill-defined bilateral opacities could represent mild multifocal pneumonia.
[2021-07-04 18:06] LABS: Absolute Lymphocytes (CBC) 2.5 K/uL (0.7-4.9); Hematocrit 44.5 % (39.6-49.0); Lymphocytes % 32.4 % (15.3-44.8); MPV 8.5 fL (7.6-11.3); RBC Red Blood Cell Count 5.15 M/uL (4.33-5.43)
[2021-07-04 18:08] LABS: Protime INR 1.28
[2021-07-04 18:27] LABS: ALT/SGPT 18 U/L (12-78); AST/SGOT 18 U/L (15-37); Albumin 3.2 g/dL (3.4-5.0); Alkaline Phosphatase 68 U/L (45-117); BUN Blood Urea Nitrogen 6 mg/dL (7-18); Bicarbonate 25 mmol/L (21-32); Bilirubin Direct 0.2 mg/dL (0-0.2); Bilirubin Total 0.5 mg/dL (0.2-1.0); Glucose Level 108 mg/dL (74-106); NT PRO-BNP 33 pg/mL (<125); Potassium 3.8 mmol/L (3.5-5.1); Protein, Total 7.3 g/dL (6.4-8.2); Sodium Level 139 mmol/L (136-145)
--- NOTE | 2021-07-04 22:55 | ER ---
Nurse's Notes [facility] Name: Nader Trejo Jr Age: 61 yrs Sex: Male : 1960 Arrival Date: 07/04/2021 Time: 16:49 Bed 4 Private MD: Diagnosis: Coronavirus infection, unspecified;Chest pain, unspecified Presentation: 07/04 16:52 Chief complaint: Patient states: SOB, headache, cough, chest pain x 2 days. Denies NVD. vg1 Coronavirus screen: Vaccine status: Patient reports receiving the 2nd dose of the covid vaccine. Client denies travel out of the [place] in the last 14 days. Client presents with at least one sign or symptom that may indicate coronavirus-19. Standard/surgical mask placed on the client. Client reports previous positive COVID test result. Date of collection: June 30, 2021. Ebola Screen: Patient negative for fever greater than or equal to 101.5 degrees Fahrenheit, and additional compatible Ebola Virus Disease symptoms. Initial Sepsis Screen: Does the patient meet any 2 criteria? No. Patient's initial sepsis screen is negative. Does the patient have a suspected source of infection? No. Patient's initial sepsis screen is negative. Risk Assessment: Do you want to hurt yourself or someone else? Patient reports no desire to harm self or others. Onset of symptoms was July 02, 2021. 16:52 Method Of Arrival: Ambulatory vg1 16:52 Acuity: BING 2 vg1 Triage Assessment: 16:52 General: Appears in no apparent distress. uncomfortable, Behavior is calm, cooperative. vg1 Pain: Complains of pain in chest and head Pain currently is 8 out of 10 on a pain scale. Cardiovascular: Patient's skin is warm and dry. Respiratory: Airway is patent Respiratory effort is even, unlabored. Historical: - Allergies: 16:54 No Known Allergies; vg1 - Home Meds: 16:54 levothyroxine oral [Active]; lisinopril Oral [Active]; Metformin Oral [Active]; vg1 - PMHx: 16:54 BPH; COPD; Hypertension; Hypothyroidism; Diabetes mellitus; vg1 - Immunization history:: Client reports receiving the 2nd dose of the Covid vaccine. - Social history:: Smoking status: Patient reports the use of cigarette tobacco products, smokes one-half pack cigarettes per day. Screenin:54 Abuse screen: Denies threats or abuse. Denies injuries from another. Nutritional ic1 screening: No deficits noted. Tuberculosis screening: No symptoms or risk factors identified. Fall Risk None identified. Assessment: 17:35 General: Appears in no apparent distress. comfortable, Behavior is calm, cooperative. ic1 Musculoskeletal: No deficits noted. 18:53 Pain: Complains of pain in chest Pain does not radiate. Pain began gradually. Neuro: ic1 Level of Consciousness is awake, alert, obeys commands, Oriented to person, place, time, situation. Cardiovascular: Rhythm is sinus rhythm. Respiratory: No deficits noted. GI: No deficits noted. : No deficits noted. EENT: No deficits noted. Derm: No deficits noted. 20:00 Reassessment: Patient appears in no apparent distress at this time. No changes from ll3 previously documented assessment. Patient and/or family updated on plan of care and expected duration. Pain level reassessed. Patient is alert, oriented x 3, equal unlabored respirations, skin warm/dry/pink. 21:00 Reassessment: Patient appears in no apparent distress at this time. No changes from ll3 previously documented assessment. Patient and/or family updated on plan of care and expected duration. Pain level reassessed. Patient is alert, oriented x 3, equal unlabored respirations, skin warm/dry/pink. 22:00 Reassessment: Patient appears in no apparent distress at this time. No changes from ll3 previously documented assessment. Patient and/or family updated on plan of care and expected duration. Pain level reassessed. Patient is alert, oriented x 3, equal unlabored respirations, skin warm/dry/pink. 23:35 Reassessment: Patient appears in no apparent distress at this time. No changes from ll3 previously documented assessment. Patient and/or family updated on plan of care and expected duration. Pain level reassessed. Patient is alert, oriented x 3, equal unlabored respirations, skin warm/dry/pink. Vital Signs: 16:52 BP 117 / 84; Pulse 90; Resp 20; Temp 98.5; Pulse Ox 97% ; Weight 83.91 kg; Height 5 ft. vg1 6 in. (167.64 cm); Pain 8/10; 18:53 BP 113 / 60; Pulse 70; Resp 18; Pulse Ox 97% on R/A; ic1 20:00 BP 132 / 85; Pulse 67; Resp 22; Pulse Ox 98% on R/A; ll3 21:00 BP 126 / 86; Pulse 66; Resp 23; Pulse Ox 97% on R/A; ll3 22:00 BP 115 / 80; Pulse 63; Resp 22; Pulse Ox 97% ; ll3 23:35 BP 134 / 82; Pulse 66; Resp 21; Pulse Ox 96% on R/A; ll3 16:52 Body Mass Index 29.86 (83.91 kg, 167.64 cm) vg1 ED Course: 16:49 Patient arrived in ED. am2 16:52 Arm band placed on. vg1 16:54 Triage completed. vg1 16:56 Adalid Uribe PA is PHCP. m 16:56 Mookie Pereira MD is Attending Physician. jmm 17:14 XRAY Chest (1 view) In Process Unspecified. EDMS 17:53 Troponin HS Sent. ic1 17:53 PT-INR Sent. ic1 22:11 Patient has correct armband on for positive identification. Placed in gown. Bed in low ll3 position. Call light in reach. Side rails up X 1. Adult w/ patient. Pulse ox on. NIBP on. 22:11 No provider procedures requiring assistance completed. Patient maintains SpO2 ll3 saturation greater than 95% on room air. 23:35 IV discontinued, intact, bleeding controlled, No redness/swelling at site. Pressure ll3 dressing applied. Administered Medications: 18:00 Not Given (Patient Refused): Aspirin Chewable Tablet 324 mg PO once; 81 mg tablets x 4 ic1 18:00 Drug: morphine 4 mg Route: IVP; Site: right upper arm; ic1 18:00 Drug: Zofran (Ondansetron) 4 mg Route: IVP; Site: right upper arm; ic1 Outcome: 22:55 Discharge ordered by . surendra 23:35 Discharged to home ambulatory, with family. ll3 23:35 Condition: stable 23:35 Discharge instructions given to patient, family, Instructed on discharge instructions, follow up and referral plans. medication usage, Demonstrated understanding of instructions, follow-up care, medications, Prescriptions given X 2. 23:36 Patient left the ED. ll3 Signatures: Dispatcher [employer] EDMS Rony, Adalid, PA PA jmm Coleman, Loren am2 Bhumika Du, RN RN vg1 Monica Lee RN RN ll3 Josefina Bob RN RN ic1 Corrections: (The following items were deleted from the chart) 16:55 16:52 Pulse 90bpm; Resp 20bpm; Pulse Ox 97%; Temp 98.5F; 83.91 kg; Height 5 ft. 6 in.; vg1 BMI: 29.8; Pain 8/10; vg1
--- NOTE | 2021-07-04 22:55 | EDPHYS ---
Physician Documentation [facility] Name: Nader Trejo Jr Age: 61 yrs Sex: Male : 1960 Arrival Date: 07/04/2021 Time: 16:49 Bed 4 Private MD: ED Physician Mookie Pereira HPI: 07/04 17:03 This 61 yrs old Black Male presents to ER via Ambulatory with complaints of Chest Pain, jmm covid symptoms. 17:03 The patient or guardian reports chest pain that is located primarily in the substernal [facility] area. Onset: gradually, 3 day(s) ago. The pain does not radiate. Associated signs and symptoms: Pertinent positives:. The chest pain is described as aching. Duration: The patient or guardian reports a single episode, that is still ongoing, and unchanged. Modifying factors: The symptoms are alleviated by nothing. the symptoms are aggravated by nothing. This is a 61 year old male with a history of COPD, HTN, hypothyroidism, DM, that presents to the ED with complaints of left sided chest pain beginning approx 3 days ago. Pain has been constant and does not radiate. Patient diagnosed with COVID on the 5th of this month. Symptoms began 1 to 2 days before positive test. Also complains of body aches, cough. Denies abdominal pain, vomiting, diarrhea. . Historical: - Allergies: 16:54 No Known Allergies; vg1 - Home Meds: 16:54 levothyroxine oral [Active]; lisinopril Oral [Active]; Metformin Oral [Active]; vg1 - PMHx: 16:54 BPH; COPD; Hypertension; Hypothyroidism; Diabetes mellitus; vg1 - Immunization history:: Client reports receiving the 2nd dose of the Covid vaccine. - Social history:: Smoking status: Patient reports the use of cigarette tobacco products, smokes one-half pack cigarettes per day. ROS: 17:03 Constitutional: Positive for body aches, chills. jmm 17:03 Cardiovascular: Positive for chest pain. 17:03 Respiratory: Positive for cough, shortness of breath. 17:03 All other systems are negative. Exam: 17:03 Constitutional: This is a well developed, well nourished patient who is awake, alert, jmm and in no acute distress. Head/Face: atraumatic. Eyes: EOMI, no conjunctival erythema appreciated ENT: Moist Mucus Membranes Neck: Trachea midline, Supple Chest/axilla: Normal chest wall appearance and motion. Cardiovascular: Regular rate and rhythm. No edema appreciated Respiratory: Normal respirations, no respiratory distress appreciated Abdomen/GI: Non distended, soft Back: Normal ROM Skin: General appearance color normal 17:03 MS/ Extremity: Moves all extremities, no obvious deformities appreciated, no edema noted to the lower extremities Neuro: Awake and alert Psych: Behavior is normal, Mood is normal, Patient is cooperative and pleasant 17:03 Musculoskeletal/extremity: ROM: intact in all extremities. Vital Signs: 16:52 BP 117 / 84; Pulse 90; Resp 20; Temp 98.5; Pulse Ox 97% ; Weight 83.91 kg; Height 5 ft. vg1 6 in. (167.64 cm); Pain 8/10; 18:53 BP 113 / 60; Pulse 70; Resp 18; Pulse Ox 97% on R/A; ic1 20:00 BP 132 / 85; Pulse 67; Resp 22; Pulse Ox 98% on R/A; ll3 21:00 BP 126 / 86; Pulse 66; Resp 23; Pulse Ox 97% on R/A; ll3 22:00 BP 115 / 80; Pulse 63; Resp 22; Pulse Ox 97% ; ll3 23:35 BP 134 / 82; Pulse 66; Resp 21; Pulse Ox 96% on R/A; ll3 16:52 Body Mass Index 29.86 (83.91 kg, 167.64 cm) vg1 MDM: 16:57 Patient medically screened. ana 22:53 Data reviewed: vital signs, nurses notes. Counseling: I had a detailed discussion with surendra the patient and/or guardian regarding: the historical points, exam findings, and any diagnostic results supporting the discharge/admit diagnosis, lab results, radiology results, to return to the emergency department if symptoms worsen or persist or if there are any questions or concerns that arise at home. Refusal of service: The patient/guardian displays adequate decision making capability and despite a detailed discussion of alternatives, benefits, risks, and consequences refuses: Admission to the hospital for further work-up and treatment. ED course: Repeat trop was drawn at 9 pm approx. Was notified by lab chem machine down. I discussed this with the patient whom would prefer to be discharged home vs being admitted for chest pain. . 07/04 17:03 Order name: Basic Metabolic Panel [facility] 07/04 17:03 Order name: CBC with Diff; Complete Time: 18:08 [facility] 07/04 17:03 Order name: LFT's [facility] 07/04 17:03 Order name: Magnesium [facility] 07/04 17:03 Order name: NT PRO-BNP [facility] 07/04 17:03 Order name: PT-INR; Complete Time: 18:11 [facility] 07/04 17:03 Order name: Troponin HS [facility] 07/04 17:03 Order name: XRAY Chest (1 view); Complete Time: 18:08 [facility] 07/04 17:03 Order name: EKG; Complete Time: 17:04 [facility] 07/04 17:03 Order name: D-Dimer; Complete Time: 18:11 [facility] 07/04 19:07 Order name: Troponin HS [facility] 07/04 17:03 Order name: Cardiac monitoring; Complete Time: 17:19 [facility] 07/04 17:03 Order name: EKG - Nurse/Tech; Complete Time: 17:19 [facility] 07/04 17:03 Order name: IV Saline Lock; Complete Time: 17:53 [facility] 07/04 17:03 Order name: Labs collected and sent; Complete Time: 17:53 [facility] 07/04 17:03 Order name: O2 Per Protocol; Complete Time: 17:53 [facility] 07/04 17:03 Order name: O2 Sat Monitoring; Complete Time: 21:27 [facility] Administered Medications: 18:00 Not Given (Patient Refused): Aspirin Chewable Tablet 324 mg PO once; 81 mg tablets x 4 ic1 18:00 Drug: morphine 4 mg Route: IVP; Site: right upper arm; ic1 18:00 Drug: Zofran (Ondansetron) 4 mg Route: IVP; Site: right upper arm; ic1 Disposition: 07/05 07:16 Co-signature as Attending Physician, Mookie Pereira MD I agree with the assessment and ana plan of care. Disposition Summary: 07/04/21 22:55 Discharge Ordered Location: Home [facility] Condition: Stable [facility] Diagnosis - Coronavirus infection, unspecified jm - Chest pain, unspecified jmm Followup: [facility] - With: Private Physician - When: 2 - 3 days - Reason: Recheck today's complaints, Continuance of care, Re-evaluation by your physician Discharge Instructions: - Discharge Summary Sheet jmm - Nonspecific Chest Pain, Adult surendra - COVID-19 [facility] Forms: - Medication Reconciliation Form surendra - Thank You Letter surendra - Antibiotic Education surendra - Prescription Opioid Use [facility] Prescriptions: - ivermectin 3 mg Oral tablet - take 6 tablet by ORAL route once daily for 5 days; 30 tablet; Refills: 0, jmm Product Selection Permitted - albuterol sulfate 90 mcg/actuation Inhalation HFA aerosol inhaler - inhale 2 puff by INHALATION route every 4 hours; 1 Pump; Refills: 0, Product [facility] Selection Permitted Signatures: Dispatcher [employer] Mookie Mike MD MD cha Mickail, Joel, PA PA jmm Garcia, Victoria, RN RN vg1 Josefina Bob RN RN ic1
[2021-07-05 00:16] VITALS: TEMP 98.5
[2021-07-05 00:22] VITALS: BP 134/82; O2SAT 96
[2021-07-05 10:38] LABS: Magnesium 1.6
== END 2021-07-04 23:36 | disposition home or self-care (01) ==
LOC: ER 16:47
DX: U07.1 COVID-19 (principal); E11.9 Type 2 diabetes mellitus without complications; I10 Essential (primary) hypertension; F17.210 Nicotine dependence, cigarettes, uncomplicated
CPT/HCPCS: 85025; 80048; 36415; 83735; 85610; 85379; 80076; 84484 ×2; 83880; 71045; 96375; 96374; 99285; J2405